=== PATIENT | female | born 1940 | race Caucasian/White ===

== ENCOUNTER 2021-12-18 09:35 | Outpatient (CLI) | payer MEDICARE, SELFPAY ==
--- NOTE | 2021-12-18 10:15 | USCV_ITS ---
Nydia Goldstein Age: 81 Gender: F : 1940 Exam Date: 12/18/2021 10:48 Ordering Phys: Mike Day XX Technologist: Judy Nieves Exam Location: [facility] [place] Indication: Syncope BP: 100 / 66 HR: 55 Rhythm: Sinus Technical Quality: Good MEASUREMENTS (Male / Female) Normal Values 2D ECHO LV Diastolic Diameter PLAX 4.5 cm 4.2 - 5.9 / 3.9 - 5.3 cm LV Systolic Diameter PLAX 2.9 cm IVS Diastolic Thickness 0.8 cm 0.6 - 1.0 / 0.6 - 0.9 cm IVS Systolic Thickness 1.2 cm LVPW Diastolic Thickness 1.1 cm 0.6 - 1.0 / 0.6 - 0.9 cm LVPW Systolic Thickness 1.7 cm LVOT Diameter 2.0 cm LV Ejection Fraction 2D Teich 64.3 % LV Ejection Fraction MOD 2C 67.3 % LV Ejection Fraction 2C AL 66.7 % LA Diameter 2.2 cm LA Width 3.1 cm LA Height 4.4 cm RA Width 3.7 cm RA Height 5.0 cm Aorta at Sinotubular Diameter 3.1 cm M-MODE MV E Point Septal Separation 0.9 cm DOPPLER AV Peak Velocity 134.0 cm/s LVOT Peak Velocity 148.0 cm/s AV Area Cont Eq vti 3.7 cm squared AV Area Cont Eq pk 3.6 cm squared MV Peak Velocity 76.0 cm/s MV Area PHT 4.2 cm squared Mitral E to A Ratio 0.6 MV E' Velocity 37.5 cm/s Mitral E to MV E' Ratio 10.9 Mitral E to LV E' Lateral Ratio 8.5 Mitral E to LV E' Septal Ratio 15.3 TR Peak Velocity 277.5 cm/s TR Peak Gradient 30.8 mmHg Right Atrial Pressure 3.0 mmHg Pulmonary Artery Systolic Pressu 33.8 mmHg PV Peak Velocity 87.0 cm/s RV Acceleration Time 0.1 s RV Ejection Time 0.3 s RV AcT/ET 0.3 FINDINGS Left Ventricle Normal left ventricular size, systolic function and wall thickness, with no regional wall motion abnormalities. Left ventricular ejection fraction is estimated at 65 %. Grade II diastolic dysfunction, moderately elevated filling pressures. Right Ventricle Normal right ventricular size and systolic function. Right ventricular systolic pressure 37 mmHg. Right Atrium Mildly increased right atrial size. Left Atrium Normal left atrial size. Mitral Valve Moderate mitral annular calcification. Mildly thickened mitral valve. No mitral valve stenosis. Trace mitral valve regurgitation. Aortic Valve Structurally normal trileaflet aortic valve. No aortic valve stenosis. Mild aortic valve regurgitation. Tricuspid Valve Structurally normal tricuspid valve. Moderate tricuspid valve regurgitation. Pulmonic Valve Structurally normal pulmonic valve. No pulmonary valve stenosis. No pulmonary valve regurgitation. Pericardium No pericardial effusion. Aorta Normal size aortic root and proximal ascending aorta. IVC Normal IVC dimension with >50% respiratory change of the inferior vena cava. CONCLUSIONS 1. Normal left ventricular size, systolic function and wall thickness, with no regional wall motion abnormalities. Left ventricular ejection fraction is estimated at 65 %. Grade II diastolic dysfunction, moderately elevated filling pressures. 2. Normal right ventricular size and systolic function. 3. Moderate tricuspid valve regurgitation. 4. Mild aortic valve regurgitation. 5. No prior similar studies to compare. Sarahi Macias MD (Electronically Signed) Final Date: 22 December 2021 08:05 S
== END 2021-12-18 09:36 | disposition home or self-care (01) ==
PROVIDERS: PCP Family Medicine; Visit Provider Family Medicine
DX: R55 Syncope and collapse (principal); I08.2 Rheumatic disorders of both aortic and tricuspid valves
CPT/HCPCS: 93306

== ENCOUNTER 2022-03-19 13:41 | Observation (INO) | payer MEDICARE, SELFPAY ==
[2022-03-19] VITALS (46 sets, daily range): BP systolic 102–152; BP diastolic 50–78; PULSE 57–70; RESP 12–23; TEMP 36.8; O2SAT 84–96; BMI 17.2
--- NOTE | 2022-03-19 14:19 | XR_ITS ---
WS: [id number] Left hip, 2 views, 03/19/2022 Clinical Data: pain/fall Comparison: AP pelvis, 05/06/2017. Findings: The internal fixation of the left intertrochanteric hip fracture remains stable. No new fractures are seen. The adjacent left pelvis does not demonstrate a fracture. The left SI joint is partly seen and is normal. The soft tissues are unremarkable. XR/XR hip LT 1V wo/w pel [id number] Impression: 1. Stable internal fixation of left intertrochanteric hip fracture. 2. Negative for new left hip fracture. Tonnis classification:
--- NOTE | 2022-03-19 14:27 | ED_ITS ---
HPI - Fall General: Chief Complaint: Fall Stated Complaint: FALL/ HIP PAIN Time Seen by Provider: 03/19/22 14:19 History of Present Illness: 81-year-old female presents emergency room c omplaining left hip pain. Patient was brought in by EMS after a fall at home. She had a stroke last year and since then has had dizziness had multiple episodes in the past today she was emptying her cat litter box she had gone outside to toss it out and got dizzy felt unsteady on her feet reached out to try to steady her self missed the railing and fell down on her left hip. Patient tells me she previously had surgery on the left hip we do not have any old x-rays. [facility] ED PFSH: Medical History (Updated 04/03/22 @ 06:03 by Asim Nayak DO) CVA (cerebral vascular accident) Fracture of left hip requiring operative repair HTN (hypertension) Tibia fracture Surgical History H/O right wrist surgery H/O: hysterectomy Family History Other Diabetes Hypertension Social History Smoking and tobacco status: current every day smoker Course Vital Signs: Vital signs: Vital Signs Temperature 97.9 F 03/26/22 12:39 Pulse Rate 68 03/26/22 12:39 Respiratory Rate 16 03/26/22 12:39 Blood Pressure 124/65 03/26/22 12:39 Pulse Oximetry 93 03/26/22 12:39 Oxygen Delivery Me thod 03/26/22 12:00 Oxygen Flow Rate 2 03/24/22 10:52 MDM - Fall Medical Decision Making Patient unable to stand. She otherwise lives alone and is unable to manage on her own we will place on observation anticipation of placement to group home care. Labs imaging and EKG reviewed as found on the chart. No acute EKG changes multiple pelvic fractures no new acute hip fracture. Medical Records I reviewed the patient's medical records. Lab Data I reviewed the patient's lab results. 03/23/22 04:24 03/23/22 04:24 Radiology Impressions Hip X-Ray 03/19/22 14:19 Impression: 1. Stable internal fixation of left intertrochanteric hip fracture. 2. Negative for new left hip fracture. Tonnis classification: Pelvis X-Ray 03/19/22 15:50 IMPRESSION: Acute left obturator ring fractures through the inferior and superior pubic rami. Femur CT 03/19/22 17:21 IMPRESSION: Redemonstrated left obturator ring fractures of the superior and inferior pubic rami. Left femur is intact. Head CT 03/26/22 05:59 IMPRESSION: 1. No evidence of intracranial hemorrhage or mass effect. 2. Moderate small vessel changes with moderate parenchymal volume loss. 3. 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 4. Vascular calcification. 5. No acute intracranial findings. Laboratory Results WBC 11.0 10^3/uL (4.0-10.0) H 03/19/22 15:38 RBC 3.86 10^6/uL (4.1-5.3) L 03/19/22 15:38 Hgb 13.0 g/dL (11.5-15.3) 03/19/22 15:38 Hct 40.4 % (37.0-47.0) 03/19/22 15:38 MCV 104.7 fl (81-99) H 03/19/22 15:38 MCH 33.7 pg (28.0-34.0) 03/19/22 15:38 MCHC 32.2 g/dL (30.0-36.0) 03/19/22 15:38 RDW 13.3 % (12.1-15.1) 03/19/22 15:38 Plt Count 223 10^3/cmm (130-400) 03/19/22 15:38 MPV 10.2 fL (7.4-10.4) 03/19/22 15:38 Neut % (Auto) 81.2 % 03/19/22 15:38 Lymph % (Auto) 12.2 % 03/19/22 15:38 Swain % (Auto) 4.9 % 03/19/22 15:38 Eos % (Auto) 0.5 % 03/19/22 15:38 Baso % (Auto) 0.5 % 03/19/22 15:38 Neut # (Auto) 8.93 10^3/uL (1.8-7.7) H 03/19/22 15:38 Lymph # (Auto) 1.3 10^3/uL (0.8-4.8) 03/19/22 15:38 Swain # (Auto) 0.5 10^3/uL (0.2-0.9) 03/19/22 15:38 Eos # (Auto) 0.1 10^3/uL (0.0-0.8) 03/19/22 15:38 Baso # (Auto) 0.1 10^3/uL (0.0-0.1) 03/19/22 15:38 Nucleated RBC % (auto) 0 % 03/19/22 15:38 Nucleated RBCs # 0.0 /100WBC 03/19/22 15:38 Sodium 138 mmol/L (136-145) 03/19/22 15:38 Potassium 4.2 mmol/L (3.5-5.1) 03/19/22 15:38 Chloride 102 mmol/L (98-107) 03/19/22 15:38 Carbon Dioxide 23 mmol/L (22-29) 03/19/22 15:38 Anion Gap 17.2 (5-19) 03/19/22 15:38 BUN 22 mg/dL (8-23) 03/19/22 15:38 Creatinine 0.7 mg/dL (0.5-0.9) 03/19/22 15:38 GFR Calculation Not Reportable 03/19/22 15:38 Glucose 80 mg/dL (65-115) 03/19/22 15:38 Calculated Osmolality 288 mOsm/kg (285-295) 03/19/22 15:38 Calcium 9.6 mg/dL (8.5-10.5) 03/19/22 15:38 Total Bilirubin 1.1 mg/dL (0.15-1.2) 03/19/22 15:38 AST 31 U/L (0-32) 03/19/22 15:38 ALT 33 U/L (0-33) 03/19/22 15:38 Alkaline Phosphatase 75 U/L (35-105) 03/19/22 15:38 Total Protein 6.5 g/dL (6.6-8.7) L 03/19/22 15:38 Albumin 4.1 g/dL (3.5-5.2) 03/19/22 15:38 Globulin 2.4 g/dL (1.3-4.6) 03/19/22 15:38 Discharge Plan Discharge Patient Disposition: Admitted As Inpatient Admit Provider: Nic Cortes Clinical Impression: Multiple pelvic fractures, History of CVA (cerebrovascular accident) Condition: Stable Discharge Diet: Cardiac Discharge Activity: Resume usual activity Coding Level of Care Code ED Obstetrician/Gynecologist for Fracisco Cortez
[2022-03-19 15:47] LABS: Basophils # 0.1 10^3/uL (0.0-0.1); Basophils % 0.5 %; Eosinophils # 0.1 10^3/uL (0.0-0.8); Eosinophils % 0.5 %; Hematocrit 40.4 % (37.0-47.0); Lymphocytes # 1.3 10^3/uL (0.8-4.8); Lymphocytes % 12.2 %; Mean Corpuscular HGB Conc 32.2 g/dL (30.0-36.0); Mean Corpuscular Hemoglobin 33.7 pg (28.0-34.0); Mean Corpuscular Volume 104.7 fl (81-99); Mean Platelet Volume 10.2 fL (7.4-10.4); Monocytes # 0.5 10^3/uL (0.2-0.9); Monocytes % 4.9 %; Neutrophils # 8.93 10^3/uL (1.8-7.7); Neutrophils % 81.2 %; Nucleated Red Blood Cells % 0 %; Platelet Count 223 10^3/cmm (130-400); Red Blood Count 3.86 10^6/uL (4.1-5.3); Red Cell Distribution Width 13.3 % (12.1-15.1)
--- NOTE | 2022-03-19 15:50 | XRR_ITS ---
PROCEDURE INFORMATION: Exam: XR Pelvis Exam date and time: 03/19/2022 4:06 PM Age: 81 years old Clinical indication: Pain and injury or trauma; Fall; Blunt trauma (contusions or hematomas); Bilateral; Hip and pelvic region; Pelvic pain; Prior surgery; Surgery type: Left hip; Additional info: Pain after fall TECHNIQUE: Imaging protocol: Radiologic exam of the pelvis. Views: 1 or 2 view. COMPARISON: CR XR hip LT 1V wo/w pel [id number] 03/19/2022 2:30 PM FINDINGS: Bones/joints: Acute left obturator ring fractures through the inferior and superior pubic rami noted. Intact left hip fixation device noted. Old/well corticated fracture through the lesser trochanter of the left hip noted. Soft tissues: Unremarkable. XR/XR pelvis 1-2V* [id number] IMPRESSION: Acute left obturator ring fractures through the inferior and superior pubic rami.
[2022-03-19 16:17] LABS: Alanine Aminotransferase 33 U/L (0-33); Albumin Level 4.1 g/dL (3.5-5.2); Alkaline Phosphatase 75 U/L (35-105); Anion Gap 17.2 (5-19); Aspartate Amino Transferase 31 U/L (0-32); Blood Urea Nitrogen 22 mg/dL (8-23); Calcium 9.6 mg/dL (8.5-10.5); Carbon Dioxide 23 mmol/L (22-29); Chloride 102 mmol/L (98-107); Globulin 2.4 g/dL (1.3-4.6); Glucose 80 mg/dL (65-115); Osmolality Calculated 288 mOsm/kg (285-295); Potassium 4.2 mmol/L (3.5-5.1); Sodium 138 mmol/L (136-145); Total Bilirubin 1.1 mg/dL (0.15-1.2); Total Protein 6.5 g/dL (6.6-8.7)
--- NOTE | 2022-03-19 17:21 | CTR_ITS ---
PROCEDURE INFORMATION: Exam: CT Left Lower Extremity Without Contrast; Thigh Exam date and time: 03/19/2022 5:58 PM Age: 81 years old Clinical indication: Injury or trauma; Fall; Blunt trauma; Thigh or upper leg; Left; Injury date: Today; Injury details: Field of view opened up to include left ischium where fracture was noted. Prior surgery; Additional info: Pain TECHNIQUE: Imaging protocol: CT of the Left lower extremity without contrast was performed. Exam focused on the thigh. Radiation optimization: All CT scans at this facility use at least one of these dose optimization techniques: automated exposure control; mA and/or kV adjustment per patient size (includes targeted exams where dose is matched to clinical indication); or iterative reconstruction. COMPARISON: CR XR pelvis 1-2V* [id number] 03/19/2022 4:06 PM RADIATION DOSE METRICS: Total DLP (mGy-cm): 497.73 FINDINGS: Bones/joints: Redemonstrated left obturator ring fractures of the superior and inferior left pubic rami. Intact left fixation device in the left femur. Old fracture through the lesser trochanter of the femur. No acute fracture of the femur. Soft tissues: Normal. CT/CT femur LT wo con* [id number] IMPRESSION: Redemonstrated left obturator ring fractures of the superior and inferior pubic rami. Left femur is intact.
[2022-03-19] MEDS: morphine 4 mg/mL SDV 1 mL 2 MG IVP (17:35)
[2022-03-19] MEDS: ondansetron 2 mg/ML SDV 2 mL 4 MG IVP (17:35)
--- NOTE | 2022-03-19 19:36 | PM.HP ---
Providers/Chief Complaint Admitting Physician: Nic Cortes Primary Care Provider: Mike Day Chief Complaint: FALL/ HIP PAIN History of Present Illness Pleasant 81-year-old lady with history of mild CVA with intermittent vertigo ever since CVA had been down to pick something up from the ground, got dizzy and did not manage to grab onto the door handle to steady herself and fell down onto the tile/stone floor just missing the carpet. She was in quite a bit of pain in her left pelvis/hip upon the fall. Had difficult time getting up, had to crawl on her needs to call for help. He otherwise denies any other new symptoms. She denies losing consciousness. Has not had any headache. Denies chest pain or pressure. Has not been feeling more short of breath than usual. In ER she is found to have acute left obturator ring fractures through the inferior and superior pubic rami. She is unable to bear any weight. Review of Systems Const: Denies: fever(s), chills, body aches or malaise Eyes: Denies: change in vision, eye discomfort or eye redness ENMT: Denies: throat pain, oral sores or ear or mastoid pain Card: Denies: chest pain, edema, pre-syncope or dyspnea on exertion Resp: Denies: dyspnea, productive cough, change in phlegm color or hemoptysis GI: Denies: abdominal pain, nausea, vomiting, diarrhea, constipation, hematochezia or melena : Denies: flank pain, urinary frequency or hematuria Musc: Reports: extremity pain (L hip/leg); Denies: back pain, joint swelling or joint redness Skin/Breast: Denies: rash or new lesions Neuro: Reports: dizziness; Denies: headache(s), numbness in extremities, weakness in extremities, confusion or seizure-like activity Endo: Denies: polyuria or polydipsia Jewel/Lymph: Denies: easy bleeding or tender lymph nodes All/Imm: Denies: urticaria or tongue swelling Medications/Allergies Home Medications Medication Instructions Recorded Confirmed Last Taken Type alendronate 70 mg tablet 70 mg PO Q7D 03/19/22 03/19/22 03/17/22 History amlodipine 10 mg tablet 10 mg PO DAILY 03/19/22 03/19/22 03/19/22 History aspirin 81 mg chewable tablet 81 mg PO BID 03/19/22 03/19/22 03/19/22 History atenolol 50 mg-chlorthalidone 25 1 tab PO DAILY 03/19/22 03/19/22 03/19/22 History mg tablet atorvastatin 20 mg tablet 20 mg PO BEDTIME 03/19/22 03/19/22 03/18/22 History fluticasone propionate 50 2 spray intranasal DAILY PRN Nasal 03/19/22 03/19/22 Unknown History mcg/actuation nasal Congestion spray,suspension lisinopril 40 mg tablet 40 mg PO DAILY 03/19/22 03/19/22 03/19/22 History potassium chloride 20 mEq 20 meq PO DAILY 03/19/22 03/19/22 03/19/22 History tablet,extended release(part/cryst) Allergies Allergy/AdvReac Type Severity Reaction Status Date / Time No Known Allergies Allergy Unverified 03/19/22 14:55 PFSH Acute PFSH: Medical History CVA (cerebral vascular accident) Fracture of left hip requiring operative repair HTN (hypertension) Tibia fracture Surgical History H/O right wrist surgery H/O: hysterectomy Family History Other Diabetes Hypertension Social History Smoking and tobacco status: current every day smoker Vitals/I&O/Wt Last Vital Signs Pulse 62 03/19/22 18:41 Resp 19 H 03/19/22 18:45 BP 118/53 03/19/22 18:45 Pulse Ox 89 L 03/19/22 18:45 Weight last 48 hrs Weight 42.638 kg Physical Exam Const: COMMON NORMALS: patient oriented x3 and alert GENERAL APPEARANCE: cooperative and frail appearing ORIENTATION/CONSCIOUSNESS: Yes awake HENMT: COMMON NORMALS: oropharynx normal Neck/C-Spine: COMMON NORMALS: no JVD Resp: COMMON NORMALS: normal respiratory effort and clear to auscultation bilaterally AUSCULTATION: clear to auscultation bilaterally Cardio: COMMON NORMALS: no JVD, regular rhythm, S1 normal heart sound present, S2 normal heart sound present and No murmurs present (Cardio) RHYTHM: regular rhythm HEART SOUNDS: S1 normal heart sound present and S2 normal heart sound present GI: COMMON NORMALS: Normal to inspection, nondistended, normoactive bowel sounds present, Soft to palpation and non-tender PALPATION: Yes Soft to palpation Extremity: COMMON NORMALS: no joint enlargement and no pedal edema OTHER: Pain L hip w movement Neuro: COMMON NORMALS: patient oriented x3 and moves all extremities SENSORIUM/ORIENTATION: Yes alert Skin: COMMON NORMALS: no rashes or lesions noted GENERAL SKIN EXAM: no rashes or lesions noted Data 03/19/22 15:38 03/19/22 15:38 A&P Assessment and plan (1) Multiple pelvic fractures: Stable pelvic fracture. Fractures of superior and inferior pubic rami. Follow-up hemoglobin discussed with her risk of acute blood loss anemia. Pain control. Cautious mobilization. She lives alone. Case management consultation. Plan HTN Attestations Medical Necessity Statement*: Place in observation for reassessment of blood count with multiple pelvic fractures and risk of acute anemia, pain control, cautious mobilization and disposition planning. Coding Level of Care Code Acute Code for [facility] Fwd Diagnoses Multiple pelvic fractures S32.82XA
[2022-03-19] MEDS: sodium chloride 0.9% 1,000 ML 100 ML IV (21:27)
[2022-03-20] VITALS: BP 99/52; PULSE 62; RESP 16; TEMP 37; O2SAT 95
--- NOTE | 2022-03-20 00:28 | PC.NURSE ---
Patient arrived to the 2nd floor on room air. Once patient was settled in the med/surg bed, aid took pts arrival vitals to see pts O2 was 83% on room air. Patient stated she was wearing oxygen in the ER. Patient was put on 3L nasal cannula with 92% oxygen.
[2022-03-20 01:37] LABS: Basophils % 0.4 %; Eosinophils # 0.1 10^3/uL (0.0-0.8); Eosinophils % 1.3 %; Hematocrit 32.8 % (37.0-47.0); Hemoglobin 10.6 g/dL (11.5-15.3); Lymphocytes # 1.7 10^3/uL (0.8-4.8); Lymphocytes % 24.2 %; Mean Corpuscular HGB Conc 32.3 g/dL (30.0-36.0); Mean Corpuscular Hemoglobin 33.8 pg (28.0-34.0); Mean Corpuscular Volume 104.5 fl (81-99); Mean Platelet Volume 10.8 fL (7.4-10.4); Monocytes # 0.5 10^3/uL (0.2-0.9); Monocytes % 7.8 %; Neutrophils # 4.48 10^3/uL (1.8-7.7); Neutrophils % 65.9 %; Nucleated Red Blood Cells % 0 %; Platelet Count 173 10^3/cmm (130-400); Red Blood Count 3.14 10^6/uL (4.1-5.3); Red Cell Distribution Width 13.2 % (12.1-15.1); White Blood Count 6.8 10^3/uL (4.0-10.0)
[2022-03-20 01:55] LABS: Anion Gap 14.8 (5-19); Blood Urea Nitrogen 20 mg/dL (8-23); Calcium 8.7 mg/dL (8.5-10.5); Carbon Dioxide 22 mmol/L (22-29); Chloride 104 mmol/L (98-107); Creatine Phosphokinase 130 U/L (26-192); Glucose 86 mg/dL (65-115); Osmolality Calculated 286 mOsm/kg (285-295); Potassium 3.8 mmol/L (3.5-5.1); Sodium 137 mmol/L (136-145)
[2022-03-20 03:49] LABS: Add Urine Microscopic? YES; Bilirubin Urine Neg (Negative); Blood Urine 2+ (Negative); Glucose Urine UA Norm (Normal); Ketones Urine 1+ (Negative); Leukocyte Esterase Urine 1+ (Negative); Nitrate Urine Positive (Negative); Protein Urine Neg (Negative); Urine Appearance SL Hazy (CLEAR); Urine Color Yellow (Yellow); Urobilinogen Urine Norm (Negative); pH Urine 7 (5-7)
[2022-03-20 03:59] LABS: Add Urine Culture? Yes; Bacteria Urine 1+ /hpf; Squamous Epithelial Cell Urine 0-4 /hpf (0-5); WBC Urine 25-40 /hpf (0-5)
[2022-03-20 04:00] VITALS: BP 108/51; PULSE 60; RESP 16; TEMP 36.9; O2SAT 95
[2022-03-20 07:56] VITALS: BP 95/51; PULSE 58; RESP 16; TEMP 36.7; O2SAT 94
[2022-03-20] MEDS: aspirin 81 mg Chew Tablet PO ×2 (08:17→18:31)
[2022-03-20] MEDS: sodium chloride 0.9% 1,000 ML 100 ML IV (08:18)
[2022-03-20] MEDS: cefTRIAXone 1,000 MG in sodium chloride 0.9% (plus) 50 ML 100 MG IV (10:54)
--- NOTE | 2022-03-20 11:51 | PC.CHAP ---
Pastoral Care Encounter/Spiritual Assessment Type of Contact [] Declined idea worker visit [] Patient/Family/Request visit [] Outpatient visit [] Follow-up visit [] Physician referral [] Code/Alert x[x]x Routine visit [] Staff referral [] Actively dying [] Patient sleeping [] Family support [] [] Out of room [] Palliative care [] [] Receiving care in room [] Pre-surgical visit [] Trauma [] Long length of stay [] ICU visit [] Other: Relational/Emotional Strength [x] Patient feels connected with others/family/visitors/staff [] Distress [] Loneliness/isolation [] Abandonment Spirituality of Patient []x Person of Inez [] Attends Faith of their Inez [x] Believes in Prayer [] Reads Bible or Roman Catholic materials [] There are Spiritual issues to be addressed Aircraft Restorer Interventions [x] Prayer [x] Active listening [x] Non-anxious presence [x] Spiritual/emotional support [] Crisis/trauma care [] Spiritual counseling [] Bereavement support [] Provided bereavement packet [] Provided Bible/devotional materials [] Provided toy/stuffed animal, coloring book to patient or family member [] Provided Communion [] Anointing/Sharon [] Salvation [x] Completed spiritual assessment [] Other: Impact on Illness or Injury [] Angry [] Fearful [] Anxious [] Often cries [] Exhaustion [] Unable to work [] Unable to attend scientology [] Unable to walk/stand [] Unable to read [] Unable to drive [] Unable to eat/drink [] Unable to sleep [] Unable to be with family [] Patient intubated [] Other: Summary Time spent with patient 10 min
[2022-03-20 12:00] VITALS: BP 108/60; PULSE 57; RESP 15; TEMP 36.7; O2SAT 96
[2022-03-20 16:00] VITALS: BP 101/44; PULSE 58; RESP 17; TEMP 36.6; O2SAT 97
[2022-03-20 19:38] VITALS: BP 103/45; PULSE 54; RESP 15; TEMP 37.1; O2SAT 95
--- NOTE | 2022-03-20 21:02 | PM.PN ---
Subjective Subjective: Swelling pain in her left side pelvis. Did try her best to get up with physical therapy today. Discussed with her regarding anemia. Currently no dizziness or lightheadedness. Vitals/I&O/Wt Last Vital Signs Temp 98.8 F 03/20/22 19:38 Pulse 54 L 03/20/22 19:38 Resp 15 03/20/22 19:38 BP 103/45 03/20/22 19:38 Pulse Ox 95 03/20/22 19:38 O2 Del Method 03/20/22 19:38 O2 Flow Rate 1 03/20/22 19:38 03/20/22 03/20/22 03/20/22 06:59 14:59 22:59 Intake Total 1869 170 2039 Output Total 200 / 200 Balance -200 / -200 1869 Weight last 48 hrs Weight 42.638 kg Physical Exam Narrative: Accompanied by her friend. Const: COMMON NORMALS: patient oriented x3 and alert GENERAL APPEARANCE: cooperative and frail appearing ORIENTATION/CONSCIOUSNESS: Yes awake HENMT: COMMON NORMALS: oropharynx normal Neck/C-Spine: COMMON NORMALS: no JVD Resp: COMMON NORMALS: normal respiratory effort and clear to auscultation bilaterally AUSCULTATION: clear to auscultation bilaterally Cardio: COMMON NORMALS: no JVD, regular rhythm, S1 normal heart sound present, S2 normal heart sound present and No murmurs present (Cardio) RHYTHM: regular rhythm HEART SOUNDS: S1 normal heart sound present and S2 normal heart sound present GI: COMMON NORMALS: Normal to inspection, nondistended, normoactive bowel sounds present, Soft to palpation and non-tender PALPATION: Yes Soft to palpation Extremity: COMMON NORMALS: no joint enlargement and no pedal edema OTHER: Pain L hip w movement Neuro: COMMON NORMALS: patient oriented x3 and moves all extremities SENSORIUM/ORIENTATION: Yes alert Skin: COMMON NORMALS: no rashes or lesions noted GENERAL SKIN EXAM: no rashes or lesions noted Data 03/20/22 01:08 03/20/22 01:08 A&P Assessment and plan (1) Multiple pelvic fractures: Pain is slightly better today. Continue stable pelvic fracture. Fractures of superior and inferior pubic rami. Follow-up hemoglobin discussed with her risk of acute blood loss anemia. Pain control. Cautious mobilization with physical therapy. Case management consultation for disposition planning. Stop IV fluid. Does appear to have UTI. Started on Rocephin. (2) Acute anemia: Aspirin therapy: Her friend tells me at home patient takes aspirin 500 mg twice daily. Patient is not sure why she is taking like this. States her doctor told her to take it that way. Thought it was due to stroke. Denies any epigastric pain or discomfort or dyspepsia. Add PPI. Collect Hemoccult. Reassess blood counts tonight and in the morning. Decrease aspirin dose to 81 mg daily. Plan UTI: Started Rocephin. Follow-up urine culture. HTN Attestations Medical Necessity Statement*: Continue reassessment in the hospital after pelvic fracture with acute anemia, reassessment of blood count due to risk of bleeding, treatment of UTI, mobilization of pelvic fractures, disposition planning and arrangements. Coding Level of Care Code Acute Code for [facility] Fwd Diagnoses Multiple pelvic fractures S32.82XA Acute anemia D64.9
[2022-03-20 21:40] LABS: Hemoglobin 10.6 g/dL (11.5-15.3)
[2022-03-21] VITALS (8 sets, daily range): BP systolic 94–133; BP diastolic 54–68; PULSE 60–72; RESP 15–18; TEMP 36.7–37.4; O2SAT 91–98
[2022-03-21 05:58] LABS: Basophils % 0.4 %; Eosinophils # 0.2 10^3/uL (0.0-0.8); Eosinophils % 2.1 %; Hematocrit 33.1 % (37.0-47.0); Hemoglobin 10.6 g/dL (11.5-15.3); Lymphocytes # 1.3 10^3/uL (0.8-4.8); Lymphocytes % 17.8 %; Mean Corpuscular Hemoglobin 33.5 pg (28.0-34.0); Mean Corpuscular Volume 104.7 fl (81-99); Mean Platelet Volume 10.1 fL (7.4-10.4); Monocytes # 0.6 10^3/uL (0.2-0.9); Monocytes % 7.8 %; Neutrophils # 5.24 10^3/uL (1.8-7.7); Neutrophils % 71.6 %; Nucleated Red Blood Cells % 0 %; Platelet Count 162 10^3/cmm (130-400); Red Blood Count 3.16 10^6/uL (4.1-5.3); Red Cell Distribution Width 12.9 % (12.1-15.1); White Blood Count 7.3 10^3/uL (4.0-10.0)
[2022-03-21 06:26] LABS: Blood Urea Nitrogen 24 mg/dL (8-23); Calcium 8.7 mg/dL (8.5-10.5); Carbon Dioxide 23 mmol/L (22-29); Chloride 104 mmol/L (98-107); Glucose 95 mg/dL (65-115); Osmolality Calculated 288 mOsm/kg (285-295); Sodium 137 mmol/L (136-145)
[2022-03-21] MEDS: cefTRIAXone 1,000 MG in sodium chloride 0.9% (plus) 50 ML 100 MG IV (08:28)
[2022-03-21] MEDS: aspirin 81 mg Chew Tablet PO (08:29)
[2022-03-21] MEDS: pantoprazole DR 40 mg Tablet PO ×2 (08:29→18:12)
--- NOTE | 2022-03-21 20:14 | PM.PN ---
Subjective Subjective: She states she is doing quite a bit of pain even more pain today in the left side of her pelvis. States that very difficult time try to get up to the restroom. Pain medication helps the pain slightly and for short time. Vitals/I&O/Wt Last Vital Signs Temp 98.6 F 03/21/22 16:00 Pulse 63 03/21/22 16:00 Resp 16 03/21/22 16:00 BP 104/60 03/21/22 16:00 Pulse Ox 97 03/21/22 16:00 O2 Del Method 03/21/22 16:00 O2 Flow Rate 0.5 03/21/22 04:00 03/21/22 03/21/22 03/21/22 06:59 14:59 22:59 Intake Total 240 / 2520 50 / 50 240 / 290 Balance 240 / 2520 50 / 50 240 / 290 Physical Exam Const: COMMON NORMALS: patient oriented x3 and alert GENERAL APPEARANCE: cooperative and frail appearing ORIENTATION/CONSCIOUSNESS: Yes awake HENMT: COMMON NORMALS: oropharynx normal Neck/C-Spine: COMMON NORMALS: no JVD Resp: COMMON NORMALS: normal respiratory effort and clear to auscultation bilaterally AUSCULTATION: clear to auscultation bilaterally Cardio: COMMON NORMALS: no JVD, regular rhythm, S1 normal heart sound present, S2 normal heart sound present and No murmurs present (Cardio) RHYTHM: regular rhythm HEART SOUNDS: S1 normal heart sound present and S2 normal heart sound present GI: COMMON NORMALS: Normal to inspection, nondistended, normoactive bowel sounds present, Soft to palpation and non-tender PALPATION: Yes Soft to palpation Extremity: COMMON NORMALS: no joint enlargement and no pedal edema OTHER: No left thigh swelling. She has difficulty lifting her left leg due to pain in left side pelvis. Neuro: COMMON NORMALS: patient oriented x3 and moves all extremities SENSORIUM/ORIENTATION: Yes alert Skin: COMMON NORMALS: no rashes or lesions noted GENERAL SKIN EXAM: no rashes or lesions noted Data 03/21/22 05:48 03/21/22 05:48 Micro: Microbiology 03/20/22 03:20 Urine Culture - Preliminary Urine,Clean Catch Gram Negative Rods A&P Assessment and plan (1) Multiple pelvic fractures: Pain is slightly better today. Continue stable pelvic fracture. Fractures of superior and inferior pubic rami. Follow-up hemoglobin discussed with her risk of acute blood loss anemia. Pain control. Cautious mobilization with physical therapy. Case management consultation for disposition planning. Stop IV fluid. Does appear to have UTI. Started on Rocephin. (2) Acute anemia: Hemoglobin today unchanged at 10.6. Recheck. Aspirin therapy: Her friend tells me at home patient takes aspirin 500 mg twice daily. Patient is not sure why she is taking like this. States her doctor told her to take it that way. Thought it was due to stroke. Denies any epigastric pain or discomfort or dyspepsia. Add PPI. Collect Hemoccult. Reassess blood counts tonight and in the morning. Decrease aspirin dose to 81 mg daily. Plan UTI: Rocephin. Follow-up urine culture. Gram-negative rods so far. HTN Attestations Medical Necessity Statement*: Continue hospitalization for reassessment following multiple pelvic fractures, uncontrolled pain due to fractures limiting mobility, optimization of pain control, reassessment of acute anemia. Coding Level of Care Code Acute Code for [facility] Diagnoses Multiple pelvic fractures S32.82XA Acute anemia D64.9
[2022-03-22] VITALS (8 sets, daily range): BP systolic 97–138; BP diastolic 53–67; PULSE 62–76; RESP 15–20; TEMP 36.6–36.9; O2SAT 90–98
[2022-03-22 01:50] LABS: Basophils % 0.5 %; Eosinophils # 0.2 10^3/uL (0.0-0.8); Eosinophils % 2.9 %; Hematocrit 32.7 % (37.0-47.0); Hemoglobin 10.7 g/dL (11.5-15.3); Lymphocytes # 1.4 10^3/uL (0.8-4.8); Lymphocytes % 21.5 %; Mean Corpuscular HGB Conc 32.7 g/dL (30.0-36.0); Mean Corpuscular Hemoglobin 34.5 pg (28.0-34.0); Mean Corpuscular Volume 105.5 fl (81-99); Mean Platelet Volume 10.4 fL (7.4-10.4); Monocytes # 0.6 10^3/uL (0.2-0.9); Monocytes % 8.8 %; Neutrophils # 4.27 10^3/uL (1.8-7.7); Neutrophils % 66.1 %; Nucleated Red Blood Cells % 0 %; Platelet Count 165 10^3/cmm (130-400); Red Cell Distribution Width 12.9 % (12.1-15.1); White Blood Count 6.5 10^3/uL (4.0-10.0)
[2022-03-22 02:09] LABS: Anion Gap 12.8 (5-19); Blood Urea Nitrogen 25 mg/dL (8-23); Carbon Dioxide 25 mmol/L (22-29); Chloride 103 mmol/L (98-107); Glucose 76 mg/dL (65-115); Osmolality Calculated 287 mOsm/kg (285-295); Potassium 3.8 mmol/L (3.5-5.1); Sodium 137 mmol/L (136-145)
[2022-03-22] MEDS: acetaminophen 325 mg Tablet 650 MG PO (02:09)
[2022-03-22] MEDS: cefTRIAXone 1,000 MG in sodium chloride 0.9% (plus) 50 ML 100 MG IV (08:16)
[2022-03-22] MEDS: pantoprazole DR 40 mg Tablet PO ×2 (08:16→18:00)
[2022-03-22] MEDS: aspirin 81 mg Chew Tablet PO (08:16)
--- NOTE | 2022-03-22 21:10 | P.PN_ITS ---
Subjective Subjective: She states she is still having pain. Did not receive the increased Dilaudid dose overnight. About to receive it this morning. Has also been having dizzy spells worse than usual. Vitals/I&O/Wt Last Vital Signs Temp 98.4 F 03/22/22 16:00 Pulse 76 03/22/22 20:16 Resp 17 03/22/22 16:00 BP 138/67 03/22/22 16:00 Pulse Ox 94 03/22/22 20:16 O2 Del Method 03/22/22 20:16 O2 Flow Rate 2 03/22/22 20:16 03/22/22 03/22/22 03/22/22 06:59 14:59 22:59 Intake Total 170 / 170 Balance 170 / 170 Physical Exam Narrative: Accompanied by her son. Const: COMMON NORMALS: patient oriented x3 and alert GENERAL APPEARANCE: cooperative and frail appearing ORIENTATION/CONSCIOUSNESS: Yes awake HENMT: COMMON NORMALS: oropharynx normal Neck/C-Spine: COMMON NORMALS: no JVD Resp: COMMON NORMALS: normal respiratory effort and clear to auscultation bilaterally AUSCULTATION: clear to auscultation bilaterally Cardio: COMMON NORMALS: no JVD, regular rhythm, S1 normal heart sound present, S2 normal heart sound present and No murmurs present (Cardio) RHYTHM: regular rhythm HEART SOUNDS: S1 normal heart sound present and S2 normal heart sound present GI: COMMON NORMALS: Normal to inspection, nondistended, normoactive bowel sounds present, Soft to palpation and non-tender PALPATION: Yes Soft to palpation Extremity: COMMON NORMALS: no joint enlargement and no pedal edema OTHER: No left thigh swelling. She has difficulty lifting her left leg due to pain in left side pelvis. Neuro: COMMON NORMALS: patient oriented x3 and moves all extremities SENSORIUM/ORIENTATION: Yes alert Skin: COMMON NORMALS: no rashes or lesions noted GENERAL SKIN EXAM: no rashes or lesions noted Data 03/22/22 01:24 03/22/22 01:24 Micro: Microbiology 03/20/22 03:20 Urine Culture - Final Urine,Clean Catch Proteus mirabilis A&P Assessment and plan (1) Multiple pelvic fractures: Still in pain but has not received higher dose of Dilaudid. Receiving it today. Continue optimization of pain control. Arrangements for rehabilitation. Continue stable pelvic fracture. Fractures of superior and inferior pubic rami. Follow-up hemoglobin discussed with her risk of acute blood loss anemia. Pain control. Cautious mobilization with physical therapy. Case management consultation for disposition planning. Stop IV fluid. UTI. Rocephin. (2) Dizzy spells: Denies vertigo, but continues to have dizzy spells worse than usual. Discussed with her we will assess orthostatics, blood pressure has been soft. Discussed also may be central. Has had dizziness ever since the prior CVA, alth adriannegh reports some dizziness even before CVA. Will additionally assess duplex. Continue aspirin. Continue treatment of UTI. Blood pressure soft currently also on pain medication. Antihypertensives held. At home may in fact be hypotensive with multiple antihypertensives. Arrangements for walker. Discussed with her and her son strict precautions to avoid falls. (3) Acute anemia: Hemoglobin today unchanged at 10.6. Recheck. Aspirin therapy: Her friend tells me at home patient takes aspirin 500 mg twice daily. Patient is not sure why she is taking like this. States her doctor told her to take it that way. Thought it was due to stroke. Denies any epigastric pain or discomfort or dyspepsia. Add PPI. Collect Hemoccult. Reassess blood counts tonight and in the morning. Decrease aspirin dose to 81 mg daily. Plan UTI: Produce. Continue Rocephin. HTN: Blood pressures currently soft with antihypertensives on hold. Attestations Medical Necessity Statement*: continue hospitalization for optimization of pain control, additional assessment of dizziness, continue arrangements for rehabilitation. Coding Level of Care Code Acute Code for [facility] Fwd Diagnoses Multiple pelvic fractures S32.82XA Dizzy spells R42 Acute anemia D64.9
--- NOTE | 2022-03-22 21:11 | USCV_ITS ---
Nydia Goldstein Age: 81 Gender: F : 1940 Exam Date: 03/22/2022 23:42 Ordering Phys: Nic Cortes MD Technologist: GAVIN Exam Location: [facility] – [place] Indication: long-term smoker continues smoking. Patient denies DM. c/o chronic dizziness x 4-5 months. Risk Factors: long-term smoker continues smoking. Patient denies DM. c/o chronic dizziness x 4-5 months. Previous Vascular Surgery: None Right Brachial BP: 110 / 58 Left Brachial BP: / Right Left Velocity (cm/s) Spectral Plaque Velocity (cm/s) Spectral Plaque Syst/Diast Broadening Syst/Diast Broadening 58.30/ 6.20 None None Prox CCA 67.00 / 6.20 None None 65.30/ 12.40 None None Mid CCA 69.50 / 8.80 None None 54.40/ 13.20 Min Hu Distal CCA 50.50 / 14.00 Min Hu 81.60/ 14.80 Min Hu Prox ICA 98.70 / 23.30 Min Hu 78.70/ 24.20 Min Homo Mid ICA 98.70 / 24.10 Min Homo 98.10/ 27.60 Min Homo Distal ICA 94.80 / 23.20 Min Homo 105.60 Min Homo ECA 53.60 None Homo 1.50 ICA/CCA 1.42 Antegrade Vertebral Antegrade 57.30/ 12.10 cm/s 61.70/ 12.10 cm/s Tri Subclavian Tri 75.00 55.90 FINDINGS Comparison: none available. No significant elevation of systolic or diastolic velocities. Waveforms are normal. Minimal bilateral atherosclerosis with no elevation of velocity. Antegrade vertebral arteries. CONCLUSIONS Bilateral ICA stenosis less than 50%. Mild carotid atherosclerosis. Dr. Becca Loya DO (Electronically Signed) Final Date: 23 March 2022 07:37 S
[2022-03-23] VITALS (12 sets, daily range): BP systolic 95–124; BP diastolic 55–72; PULSE 56–77; RESP 16–23; TEMP 36.6–36.9; O2SAT 93–100
[2022-03-23 05:24] LABS: Basophils % 0.5 %; Eosinophils # 0.2 10^3/uL (0.0-0.8); Eosinophils % 3.4 %; Hematocrit 31.2 % (37.0-47.0); Hemoglobin 10.3 g/dL (11.5-15.3); Lymphocytes # 1.5 10^3/uL (0.8-4.8); Lymphocytes % 23.4 %; Mean Corpuscular Hemoglobin 34.4 pg (28.0-34.0); Mean Corpuscular Volume 104.3 fl (81-99); Mean Platelet Volume 10.9 fL (7.4-10.4); Monocytes # 0.6 10^3/uL (0.2-0.9); Monocytes % 9.1 %; Neutrophils # 4.08 10^3/uL (1.8-7.7); Neutrophils % 63.3 %; Nucleated Red Blood Cells % 0 %; Platelet Count 184 10^3/cmm (130-400); Red Blood Count 2.99 10^6/uL (4.1-5.3); Red Cell Distribution Width 12.5 % (12.1-15.1); White Blood Count 6.5 10^3/uL (4.0-10.0)
[2022-03-23 05:56] LABS: Blood Urea Nitrogen 24 mg/dL (8-23); Calcium 9.3 mg/dL (8.5-10.5); Carbon Dioxide 27 mmol/L (22-29); Chloride 101 mmol/L (98-107); Glucose 117 mg/dL (65-115); Osmolality Calculated 287 mOsm/kg (285-295); Sodium 136 mmol/L (136-145)
[2022-03-23] MEDS: cefTRIAXone 1,000 MG in sodium chloride 0.9% (plus) 50 ML 100 MG IV (08:33)
[2022-03-23] MEDS: pantoprazole DR 40 mg Tablet PO ×2 (08:33→18:29)
[2022-03-23] MEDS: aspirin 81 mg Chew Tablet PO (08:34)
[2022-03-23] MEDS: polyethylene glycol 3350 Pkt 17 gm PO ×2 (11:59→18:29)
--- NOTE | 2022-03-23 16:25 | P.PN_ITS ---
Subjective Subjective: She is still having episodes of dizziness. Denies other symptoms. Pain is now becoming better controlled, but still needed pain medication. Vitals/I&O/Wt Last Vital Signs Temp 98 F 03/23/22 08:00 Pulse 62 03/23/22 12:00 Resp 18 03/23/22 08:34 BP 115/63 03/23/22 12:00 Pulse Ox 95 03/23/22 12:00 O2 Del Method 03/23/22 09:00 O2 Flow Rate 2 03/23/22 09:00 03/23/22 03/23/22 03/23/22 06:59 14:59 22:59 Intake Total 120 / 530 300 / 300 Output Total 200 / 200 Balance -80 / 330 300 / 300 Physical Exam Narrative: Accompanied by her son. Const: COMMON NORMALS: patient oriented x3 and alert GENERAL APPEARANCE: cooperative and frail appearing ORIENTATION/CONSCIOUSNESS: Yes awake HENMT: COMMON NORMALS: oropharynx normal Neck/C-Spine: COMMON NORMALS: no JVD Resp: COMMON NORMALS: normal respiratory effort and clear to auscultation bilaterally AUSCULTATION: clear to auscultation bilaterally Cardio: COMMON NORMALS: no JVD, regular rhythm, S1 normal heart sound present, S2 normal heart sound present and No murmurs present (Cardio) RHYTHM: regular rhythm HEART SOUNDS: S1 normal heart sound present and S2 normal heart sound present GI: COMMON NORMALS: Normal to inspection, nondistended, normoactive bowel sounds present, Soft to palpation and non-tender PALPATION: Yes Soft to palpation Extremity: COMMON NORMALS: no joint enlargement and no pedal edema OTHER: No left thigh swelling. She has difficulty lifting her left leg due to pain in left side pelvis. Neuro: COMMON NORMALS: patient oriented x3 and moves all extremities SENSORIUM/ORIENTATION: Yes alert Skin: COMMON NORMALS: no rashes or lesions noted GENERAL SKIN EXAM: no rashes or lesions noted Data 03/23/22 04:24 03/23/22 04:24 Micro: Microbiology 03/20/22 03:20 Urine Culture - Final Urine,Clean Catch Proteus mirabilis A&P Assessment and plan (1) Dizzy spells: Discussed with her and her son blood pressures with some fluctuation, intermittently pretty soft. Would likely not resume any of her an tihypertensives at this time. We did check orthostatics as well, and these do appear to be okay without significant drop upon standing. We will additionally assess with cardiac monitoring here due to dizzy spells to exclude arrhythmia. Denies vertigo, but continues to have dizzy spells worse than usual. Discussed with her we will assess orthostatics, blood pressure has been soft. Discussed also may be central. Has had dizziness ever since the prior CVA, although reports some dizziness even before CVA. Carotid duplex unremarkable including anterograde flow in the vertebrals. Continue aspirin. Continue treatment of UTI. Arrangements for walker. Discussed with her and her son strict precautions to avoid falls. (2) Multiple pelvic fractures: Pain is becoming better controlled but still needing pain medication. Continue Dilaudid. Discontinue IV morphine. Continue optimization of pain control. Arrangements for rehabilitation. Fractures of superior and inferior pubic rami. Follow-up hemoglobin discussed with her risk of acute blood loss anemia. Pain control. Cautious mobilization with physical therapy. Case management consultation for disposition planning. UTI. Rocephin. (3) Acute anemia: Hemoglobin today unchanged at 10.6. Recheck. Aspirin therapy: Her friend tells me at home patient takes aspirin 500 mg twice daily. Patient is not sure why she is taking like this. States her doctor told her to take it that way. Thought it was due to stroke. Denies any epigastric pain or discomfort or dyspepsia. Add PPI. Collect Hemoccult. Reassess blood counts tonight and in the morning. Decrease aspirin dose to 81 mg daily. Plan UTI: Proteus mirabilis. Continue Rocephin. HTN: Blood pressures currently soft with antihypertensives on hold. Attestations Medical Necessity Statement*: Continue hospitalization for assessment of dizzy spells leading to a fall with multiple pelvic fractures, optimization of pain control, disposition planning and arrangements. Coding Level of Care Code Acute Code for [facility] Fwd Diagnoses Dizzy spells R42 Multiple pelvic fractures S32.82XA Acute anemia D64.9
[2022-03-24] VITALS (10 sets, daily range): BP systolic 108–155; BP diastolic 57–71; PULSE 57–68; RESP 16–19; TEMP 36.6–36.9; O2SAT 92–98
[2022-03-24] MEDS: pantoprazole DR 40 mg Tablet PO ×2 (08:51→19:30)
[2022-03-24] MEDS: aspirin 81 mg Chew Tablet PO (08:51)
[2022-03-24] MEDS: cefTRIAXone 1,000 MG in sodium chloride 0.9% (plus) 50 ML 100 MG IV (08:51)
[2022-03-24] MEDS: polyethylene glycol 3350 Pkt 17 gm PO ×2 (08:51→19:31)
--- NOTE | 2022-03-24 13:12 | USCV_ITS ---
Nydia Goldstein Age: 81 Gender: F : 1940 Exam Date: 03/24/2022 16:25 Ordering Phys: Nic Cortes MD Technologist: JEANNA [place] [facility] [place]: fluctuating bp, dizziness BP: / HR: Rhythm: Sinus Technical Quality: Adequate MEASUREMENTS (Male / Female) Normal Values 2D ECHO LVOT Diameter 1.9 cm LA Diameter 3.5 cm M-MODE Aortic Annulus Diameter 2.2 cm LA Ao Ratio MM 1.8 MV E Point Septal Separation 0.2 cm DOPPLER TR Peak Velocity 281.0 cm/s TR Peak Gradient 31.6 mmHg Right Atrial Pressure 6.0 mmHg Pulmonary Artery Systolic Pressu 37.6 mmHg FINDINGS Left Ventricle Normal left ventricular size, systolic function and wall thickness, with no regional wall motion abnormalities. Left ventricular ejection fraction is estimated at 65 %. Right Ventricle Normal right ventricular size and systolic function. Right ventricular systolic pressure 39 mmHg. Right Atrium Normal right atrial size. Left Atrium Normal left atrial size. Mitral Valve Mild mitral annular calcification. Mildly thickened mitral valve. No mitral valve stenosis. Mild mitral valve regurgitation. Aortic Valve Structurally normal trileaflet aortic valve. No aortic valve stenosis. Mild aortic valve regurgitation. Tricuspid Valve Structurally normal tricuspid valve. No tricuspid valve stenosis. Mild tricuspid valve regurgitation. Pulmonic Valve Structurally normal pulmonic valve. No pulmonary valve stenosis. Trace pulmonary valve regurgitation. Pericardium No pericardial effusion. Aorta Normal size aortic root and proximal ascending aorta. IVC Normal IVC dimension with >50% respiratory change of the inferior vena cava. CONCLUSIONS 1. Normal left ventricular size, systolic function and wall thickness, with no regional wall motion abnormalities. Left ventricular ejection fraction is estimated at 65 %. 2. Mild aortic valve regurgitation. 3. Mild mitral and tricuspid valve regurgitation. 4. When compared to study dated 12/18/21, there may not have been any significant change. Sarahi Macias MD (Electronically Signed) Final Date: 24 March 2022 21:07 S
[2022-03-24] MEDS: bisacodyl 10 mg Supp PR (16:40)
--- NOTE | 2022-03-24 20:11 | P.PN_ITS ---
Subjective Subjective: She is having quite severe constipation. Has not had a bowel movement in days. Abdomen feels distended. Still having episodes of dizziness. Gets tired with exertion working with therapy. Vitals/I&O/Wt Last Vital Signs Temp 98 F 03/24/22 15:53 Pulse 62 03/24/22 15:53 Resp 16 03/24/22 15:53 BP 123/59 03/24/22 15:53 Pulse Ox 94 03/24/22 15:53 O2 Del Method 03/24/22 10:52 O2 Flow Rate 2 03/24/22 10:52 03/24/22 03/24/22 03/24/22 06:59 14:59 22:59 Intake Total 0 / 780 550 / 550 240 / 790 Output Total 0 / 0 Balance 0 / 780 550 / 550 240 / 790 Physical Exam Const: COMMON NORMALS: patient oriented x3 and alert GENERAL APPEARANCE: cooperative and frail appearing ORIENTATION/CONSCIOUSNESS: Yes awake HENMT: COMMON NORMALS: oropharynx normal Neck/C-Spine: COMMON NORMALS: no JVD Resp: COMMON NORMALS: normal respiratory effort and clear to auscultation bilaterally AUSCULTATION: clear to auscultation bilaterally Cardio: COMMON NORMALS: no JVD, regular rhythm, S1 normal heart sound present, S2 normal heart sound present and No murmurs present (Cardio) RHYTHM: regular rhythm HEART SOUNDS: S1 normal heart sound present and S2 normal heart sound present GI: COMMON NORMALS: Normal to inspection, nondistended, normoactive bowel sounds present, Soft to palpation and non-tender INSPECTION: Yes abdominal distension PALPATION: Yes Soft to palpation Extremity: COMMON NORMALS: no joint enlargement and no pedal edema OTHER: No left thigh swelling. She has difficulty lifting her left leg due to pain in left side pelvis. Neuro: COMMON NORMALS: patient oriented x3 and moves all extremities SENSORIUM/ORIENTATION: Yes alert Skin: COMMON NORMALS: no rashes or lesions noted GENERAL SKIN EXAM: no rashes or lesions noted Data 03/23/22 04:24 03/23/22 04:24 A&P Assessment and plan (1) Dizzy spells: Episodes of dizziness with exertional fatigue. Fluctuation in blood pressures. Assess limited TTE. Discussed with her and her son blood pressures with some fluctuation, intermittently pretty soft. Would likely not resume any of her antihypertensives at this time. We did check orthostatics as well, and these do appear to be okay without significant drop upon standing. We will additionally assess with cardiac monitoring here due to dizzy spells to exclude arrhythmia. Denies vertigo, but continues to have dizzy spells worse than usual. Discussed with her we will assess orthostatics, blood pressure has been soft. Discussed also may be central. Has had dizziness ever since the prior CVA, although reports some dizziness even before CVA. Carotid duplex unremarkable including anterograde flow in the vertebrals. Continue aspirin. Continue treatment of UTI. Arrangements for walker. Discussed with her and her son strict precautions to avoid falls. Will benefit from further rehabilitation after discharge. Unable to be accepted over the weekend until Saturday. (2) Multiple pelvic fractures: Pain is becoming better controlled but still needing pain medication. Continue Dilaudid. Continue optimization of pain control. Arrangements for rehabilitation. Fractures of superior and inferior pubic rami. Follow-up hemoglobin discussed with her risk of acute blood loss anemia. Pain control. Cautious mobilization with physical therapy. Case management consultation for disposition planning. UTI. Rocephin. (3) Acute anemia: Hemoglobin today unchanged at 10.6. Recheck. Aspirin therapy: Her friend tells me at home patient takes aspirin 500 mg twice daily. Patient is not sure why she is taking like this. States her doctor told her to take it that way. Thought it was due to stroke. Denies any epigastric pain or discomfort or dyspepsia. Add PPI. Collect Hemoccult. Reassess blood counts tonight and in the morning. Decrease aspirin dose to 81 mg daily. Plan Constipation: Without success with bowel regimen, ordered suppository, still no bowel movement charted. We will give enema as discussed. We will also give Relistor given she has been needing opioids. UTI: Proteus mirabilis. Continue Rocephin. HTN: Blood pressures currently soft with antihypertensives on hold. Attestations Medical Necessity Statement*: Continue hospitalization for assessment of management of dizziness episodes, optimization of pain control after multiple pelvic fractures, treatment of UTI, constipation., Disposition planning and arrangements. Coding Level of Care Code Acute Code for [facility] Diagnoses Dizzy spells R42 Multiple pelvic fractures S32.82XA Acute anemia D64.9
[2022-03-25] VITALS (11 sets, daily range): BP systolic 101–175; BP diastolic 60–76; PULSE 59–73; RESP 14–18; TEMP 36.5–37; O2SAT 89–97
[2022-03-25] MEDS: polyethylene glycol 3350 Pkt 17 gm PO ×2 (08:45→17:52)
[2022-03-25] MEDS: aspirin 81 mg Chew Tablet PO (08:45)
[2022-03-25] MEDS: pantoprazole DR 40 mg Tablet PO ×2 (08:45→17:52)
[2022-03-25] MEDS: cefTRIAXone 1,000 MG in sodium chloride 0.9% (plus) 50 ML 100 MG IV (08:46)
[2022-03-25] MEDS: methylnaltrexone 12 /0.6 mL INJ 12 MG SUBCUT (13:50)
--- NOTE | 2022-03-25 19:56 | P.PN_ITS ---
Subjective Subjective: She is still having episodes of dizziness. Discussed with her fluctuating blood pressures. Discussed with her we are not seeing any other significant abnormalities on TTE. No arrhythmias on telemetry. Orthostatics have been okay. Discussed with her possibility of autonomic instability, althou gh blood pressures well fluctuating are still within normal range. Discussed with her consideration for further treatment versus observation given additional treatment may push her blood pressures into either hypertensive or hypotensive territory and she is agreeable with more conservative approach. Discussed with her also psychogenic effect on blood pressures. She does state that she gets worked up about things easily and has been that way most of her life. Discussed with her that this certainly could be also affecting her blood pressures as well. She otherwise still has constipation, although earlier had declined both enema and Relistor. Discussing with her she states she will consider them. Vitals/I&O/Wt Last Vital Signs Temp 97.7 F 03/25/22 19:12 Pulse 62 03/25/22 19:12 Resp 14 03/25/22 19:12 BP 105/60 03/25/22 19:12 Pulse Ox 91 03/25/22 19:12 O2 Del Method 03/25/22 19:12 O2 Flow Rate 2 03/24/22 10:52 03/25/22 03/25/22 03/25/22 06:59 14:59 22:59 Intake Total 770 / 770 240 / 1010 Balance 770 / 770 240 / 1010 Physical Exam Const: COMMON NORMALS: patient oriented x3 and alert GENERAL APPEARANCE: cooperative and frail appearing ORIENTATION/CONSCIOUSNESS: Yes awake HENMT: COMMON NORMALS: oropharynx normal Neck/C-Spine: COMMON NORMALS: no JVD Resp: COMMON NORMALS: normal respiratory effort and clear to auscultation bilaterally AUSCULTATION: clear to auscultation bilaterally Cardio: COMMON NORMALS: no JVD, regular rhythm, S1 normal heart sound present, S2 normal heart sound present and No murmurs present (Cardio) RHYTHM: regular rhythm HEART SOUNDS: S1 normal heart sound present and S2 normal heart sound present GI: COMMON NORMALS: Normal to inspection, nondistended, normoactive bowel sounds present, Soft to palpation and non-tender INSPECTION: Yes abdominal distension PALPATION: Yes Soft to palpation Extremity: COMMON NORMALS: no joint enlargement and no pedal edema OTHER: No left thigh swelling. Neuro: COMMON NORMALS: patient oriented x3 and moves all extremities SENSORIUM/ORIENTATION: Yes alert Skin: COMMON NORMALS: no rashes or lesions noted GENERAL SKIN EXAM: no ra shes or lesions noted Data 03/23/22 04:24 03/23/22 04:24 A&P Assessment and plan (1) Dizzy spells: Discussed with her fluctuating blood pressures. Discussed with her we are not seeing any other significant abnormalities on TTE. No arrhythmias on telemetry. Orthostatics have been okay. Discussed with her possibility of autonomic instability, although blood pressures well fluctuating are still within normal range. Discussed with her consideration for further treatment versus observation given additional treatment may push her blood pressures into either hypertensive or hypotensive territory and she is agreeable with more conservative approach. Discussed with her also psychogenic effect on blood pressures. She does state that she gets worked up about things easily and has been that way most of her life. Discussed with her that this certainly could be also affecting her blood pressures as well. As previously discussed as well continue strict fall precautions, ambulation normally with walker. Denies vertigo, but continues to have dizzy spells worse than usual. Discussed also may be central. Has had dizziness ever since the prior CVA, although reports some dizziness even before CVA. Carotid duplex unremarkable including anterograde flow in the vertebrals. Continue aspirin. Completed treatment for UTI. Arrangements for walker. Discussed with her and her son strict precautions to avoid falls. Will benefit from further rehabilitation after discharge. Unable to be accepted over the weekend until Saturday. (2) Multiple pelvic fractures: Pain is becoming better controlled but still needing pain medication. Continue Dilaudid. Continue optimization of pain control. Arrangements for rehabilitation. Fractures of superior and inferior pubic rami. Follow-up hemoglobin discussed with her risk of acute blood loss anemia. Pain control. Cautious mobilization with physical therapy. Case management con sultation for disposition planning. (3) Acute anemia: Hemoglobin had remained steady. Aspirin therapy: Her friend tells me at home patient takes aspirin 500 mg twice daily. Patient is not sure why she is taking like this. States her doctor told her to take it that way. Thought it was due to stroke. Denies any epigastric pain or discomfort or dyspepsia. Continue PPI. Collect Hemoccult. Reassess blood counts tonight and in the morning. Decrease aspirin dose to 81 mg daily. (4) Obstipation: Still without success. She had initially declined enema and Relistor, on discussion states she will consider them various things have still not improved she has been feeling quite distended. It appears she had received the treatments. Still no bowel movement. We will add Shonda. Plan UTI: Proteus mirabilis. Completed course of treatment with Rocephin. HTN: Blood pressures currently soft with antihypertensives on hold. Would not resume at discharge. Attestations Medical Necessity Statement*: Continue admission for assessment of management of episodes of dizziness which had led to a fall with multiple pelvic fractures, management of obstipation. Discharge planning and arrangements. Coding Level of Care Code Acute Code for [facility] Diagnoses Dizzy spells R42 Multiple pelvic fractures S32.82XA Acute anemia D64.9 Obstipation K59.00
[2022-03-25] MEDS: peg /e-lyte soln 4,000 mL Btl 1500 ML PO (22:29)
[2022-03-26 03:20] VITALS: BP 114/54; PULSE 63; RESP 16; TEMP 36.6; O2SAT 92
--- NOTE | 2022-03-26 05:59 | CT_ITS ---
WS: [id number] CT HEAD TECHNIQUE: Noncontrast CT of the head obtained from the skullbase to the vertex. CLINICAL INFORMATION: sdizzyness COMPARISON: None. DLP: 1072.[address] scans at [facility] use at least one of these dose optimization techniques: automated e xposure control; mA and/or kV adjustment per patient size (includes targeted exams where dose is matc hed to clinical indication); or iterative reconstruction. FINDINGS: No evidence of intracranial hemorrhage or mass effect. Ventricular system and basal cisterns are dubon nt. Moderate small vessel changes with moderate parenchymal volume loss. No extra-axial fluid collect ions. Chronic infarct with encephalomalacia in the RIGHT parasagittal parietal and occipital lobes. Small a mount of fluid RIGHT maxillary sinus. Mastoid air cells well aerated. Intracranial vascular calcifica tion. Calcified scalp nodules CT/CT head wo con* [id number] IMPRESSION: 1. No evidence of intracranial hemorrhage or mass effect. 2. Moderate small vessel changes with moderate parenchymal volume loss. 3. 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 4. Vascular calcification. 5. No acute intracranial findings.
[2022-03-26 06:19] VITALS: PULSE 62
[2022-03-26 07:53] VITALS: BP 127/68; PULSE 69; RESP 16; TEMP 36.6; O2SAT 90
[2022-03-26] MEDS: aspirin 81 mg Chew Tablet PO (08:27)
[2022-03-26] MEDS: pantoprazole DR 40 mg Tablet PO (08:27)
[2022-03-26] MEDS: polyethylene glycol 3350 Pkt 17 gm PO (08:27)
--- NOTE | 2022-03-26 09:21 | PM.DCS ---
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 She was in quite a bit of pain in her left pelvis/hip upon the fall.? Had difficult time getting up, had to crawl on her needs to call for help.? He otherwise denies any other new symptoms.? She denies losing consciousness.? Has not had any headache.? Denies chest pain or pressure.? Has not been feeling more short of breath than usual.? In ER she is found to have acute left obturator ring fractures through the inferior and superior pubic rami.? She is unable to bear any weight. 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 We will have patient follow-up with Dr. Huggins, as outpatient, ambulation with a walker. Given location stroke, involving several lobes, possibly visual deficit? Resulting in recurrent falls, will refer her to ophthalmology. Patient was advised she have increased risk of falls, ambulate with care, ambulate with a walker Physical Exam Const: COMMON NORMALS: no acute distress and patient oriented x3 Resp: COMMON NORMALS: normal respiratory effort, No retractions, No use of accessory muscles and clear to auscultation bilaterally AUSCULTATION: clear to auscultation bilaterally Cardio: COMMON NORMALS: regular rate, regular rhythm, S1 normal heart sound present and S2 normal heart sound present RATE: regular rate RHYTHM: regular rhythm HEART SOUNDS: S1 normal heart sound present and S2 normal heart sound present GI: COMMON NORMALS: Normal to inspection, nondistended, normoactive bowel sounds present and Soft to palpation PALPATION: Yes Soft to palpation Extremity: COMMON NORMALS: no pedal edema Neuro: COMMON NORMALS: patient oriented x3 Psych: COMMON NORMALS: mental status grossly normal Discharge Data Studies Completed and Pending Completed Studies During Hospitalization Category Date Time Status CT femur LT wo con* [id number] Stat Cat Scan 03/19/22 17:[address] head wo con* [id number] Routine Cat Scan 03/26/22 05:59 Completed XR hip LT 1V wo/w pel [id number] Stat Exams 03/19/22 14:19 Completed XR pelvis 1-2V* [id number] Stat Exams 03/19/22 15:50 Completed CV carotid duplex BI* [id number] Routine Ultrasound 03/22/22 21:11 Completed CV. echo limited [id number] Routine Ultrasound 03/24/22 13:12 Completed Radiology Impressions Hip X-Ray 03/19/22 14:19 Impression: 1. Stable internal fixation of left intertrochanteric hip fracture. 2. Negative for new left hip fracture. Tonnis classification: Pelvis X-Ray 03/19/22 15:50 IMPRESSION: Acute left obturator ring fractures through the inferior and superior pubic rami. Femur CT 03/19/22 17:21 IMPRESSION: Redemonstrated left obturator ring fractures of the superior and inferior pubic rami. Left femur is intact. Head CT 03/26/22 05:59 IMPRESSION: 1. No evidence of intracranial hemorrhage or mass effect. 2. Moderate small vessel changes with moderate parenchymal volume loss. 3. 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 4. Vascular calcification. 5. No acute intracranial findings. Laboratory Results WBC 6.5 10^3/uL (4.0-10.0) 03/23/22 04:24 RBC 2.99 10^6/uL (4.1-5.3) L 03/23/22 04:24 Hgb 10.3 g/dL (11.5-15.3) L 03/23/22 04:24 Hct 31.2 % (37.0-47.0) L 03/23/22 04:24 MCV 104.3 fl (81-99) H 03/23/22 04:24 MCH 34.4 pg (28.0-34.0) H 03/23/22 04:24 MCHC 33.0 g/dL (30.0-36.0) 03/23/22 04:24 RDW 12.5 % (12.1-15.1) 03/23/22 04:24 Plt Count 184 10^3/cmm (130-400) 03/23/22 04:24 MPV 10.9 fL (7.4-10.4) H 03/23/22 04:24 Neut % (Auto) 63.3 % 03/23/22 04:24 Lymph % (Auto) 23.4 % 03/23/22 04:24 [place] % (Auto) 9.1 % 03/23/22 04:24 Eos % (Auto) 3.4 % 03/23/22 04:24 Baso % (Auto) 0.5 % 03/23/22 04:24 Neut # (Auto) 4.08 10^3/uL (1.8-7.7) 03/23/22 04:24 Lymph # (Auto) 1.5 10^3/uL (0.8-4.8) 03/23/22 04:24 [place] # (Auto) 0.6 10^3/uL (0.2-0.9) 03/23/22 04:24 Eos # (Auto) 0.2 10^3/uL (0.0-0.8) 03/23/22 04:24 Baso # (Auto) 0.0 10^3/uL (0.0-0.1) 03/23/22 04:24 Nucleated RBC % (auto) 0 % 03/23/22 04:24 Nucleated RBCs # 0.0 /100WBC 03/23/22 04:24 Sodium 136 mmol/L (136-145) 03/23/22 04:24 Potassium 4.0 mmol/L (3.5-5.1) 03/23/22 04:24 Chloride 101 mmol/L (98-107) 03/23/22 04:24 Carbon Dioxide 27 mmol/L (22-29) 03/23/22 04:24 Anion Gap 12.0 (5-19) 03/23/22 04:24 BUN 24 mg/dL (8-23) H 03/23/22 04:24 Creatinine 0.6 mg/dL (0.5-0.9) 03/23/22 04:24 GFR Calculation Not Reportable 03/23/22 04:24 Glucose 117 mg/dL (65-115) H 03/23/22 04:24 Calculated Osmolality 287 mOsm/kg (285-295) 03/23/22 04:24 Calcium 9.3 mg/dL (8.5-10.5) 03/23/22 04:24 Total Bilirubin 1.1 mg/dL (0.15-1.2) 03/19/22 15:38 AST 31 U/L (0-32) 03/19/22 15:38 ALT 33 U/L (0-33) 03/19/22 15:38 Alkaline Phosphatase 75 U/L (35-105) 03/19/22 15:38 Creatine Kinase 130 U/L (26-192) 03/20/22 01:08 Total Protein 6.5 g/dL (6.6-8.7) L 03/19/22 15:38 Albumin 4.1 g/dL (3.5-5.2) 03/19/22 15:38 Globulin 2.4 g/dL (1.3-4.6) 03/19/22 15:38 Urine Color Yellow (Yellow) 03/20/22 03:20 Urine Appearance Sl hazy (CLEAR) A 03/20/22 03:20 Urine pH 7 (5-7) 03/20/22 03:20 Ur Specific [place] 1.010 (1.005-1.030) 03/20/22 03:20 Urine Protein Neg (Negative) 03/20/22 03:20 Urine Glucose (UA) Norm (Normal) 03/20/22 03:20 Urine Ketones 1+ (Negative) H 03/20/22 03:20 Urine Blood 2+ (Negative) H 03/20/22 03:20 Urine Nitrate Positive (Negative) H 03/20/22 03:20 Urine Bilirubin Neg (Negative) 03/20/22 03:20 Urine Urobilinogen Norm mg/dL (Negative) 03/20/22 03:20 Ur Leukocyte Esterase 1+ (Negative) H 03/20/22 03:20 Urine RBC 10-15 /hpf (0-2) H 03/20/22 03:20 Urine WBC 25-40 /hpf (0-5) H 03/20/22 03:20 Ur Squamous Epith Cells 0-4 /hpf (0-5) H 03/20/22 03:20 Amorphous Sediment Not Reportable 03/20/22 03:20 Urine Bacteria 1+ /hpf (NONE) H 03/20/22 03:20 Vitals Last Vital Signs Temp 97.8 F 03/26/22 07:53 Pulse 69 03/26/22 07:53 Resp 16 03/26/22 07:53 BP 127/68 03/26/22 07:53 Pulse Ox 90 03/26/22 07:53 O2 Del Method 03/26/22 07:53 O2 Flow Rate 2 03/24/22 10:52 Discharge Plan Discharge Patient Disposition: Home Condition: Stable Prescriptions: New hydrocodone-acetaminophen 5-325 mg tablet 1 tab PO BID PRN (Reason: pain) 7 Days Qty: 14 0RF Continued atorvastatin 20 mg tablet 20 mg PO BEDTIME alendronate 70 mg tablet 70 mg PO Q7D Rx Instructions: on Saturdays amlodipine 10 mg tablet 10 mg PO DAILY aspirin 81 mg Tablet,Chewable 81 mg PO BID lisinopril 40 mg tablet 40 mg PO DAILY fluticasone propionate 50 mcg/actuation spray,suspension 2 spray INTRANASAL DAILY PRN (Reason: Nasal Congestion) Discontinued atenolol-chlorthalidone 50-25 mg tablet 1 tab PO DAILY potassium chloride 20 mEq tablet,ER particles/crystals 20 meq PO DAILY Discharge Orders: Discharge Order (Routine); Ordered 03/26/22 Ordered By: Hal Perez Other Ambulatory Orders: MR head wo con* [id number] (Routine) Timeframe: 1 Week Facility: [facility] - Location: [facility] Ordered By: Nic Cortes Referrals: Alexandra Huggins MD [Physician] - 2 weeks Mike Day [Primary Care Provider] - 1-3 days Discharge Diet: Cardiac Discharge Activity: Resume usual activity Patient Instructions: Opioid Safety Activity Restrictions/Additional Instructions: - Please follow-up with primary care provider in 1 week -If any recurrent dizziness please go to the emergency room Discharge Attestations Time Spent in Discharge Care*: less than 30 min Quality Metrics Clinical Quality Measures [ No reported AMI, CVA or VTE this stay] Coding Level of Care Code Acute Chg FW DC note Diagnoses Dizzy spells R42 Multiple pelvic fractures S32.82XA Acute anemia D64.9 Obstipation K59.00
[2022-03-26 12:00] VITALS: BP 124/65; PULSE 68; RESP 16; TEMP 36.6; O2SAT 93
[2022-03-26 12:39] VITALS: BP 124/65; PULSE 68; RESP 16; TEMP 36.6; O2SAT 93
== END 2022-03-26 14:57 | disposition skilled nursing facility (03) ==
LOC: ER 18:29 → MEDSURG 18:58
PROVIDERS: Admitting Provider Internal Medicine; Emergency Provider Family Medicine; PCP Family Medicine; Visit Provider Family Medicine
DX: R42 Dizziness and giddiness (principal); S32.82XA Multiple fractures of pelvis without disruption of pelvic ring, initial encounter for closed fracture; W19.XXXA Unspecified fall, initial encounter; D64.9 Anemia, unspecified; K59.00 Constipation, unspecified; I69.898 Other sequelae of other cerebrovascular disease; Z79.82 Long term (current) use of aspirin; I10 Essential (primary) hypertension; F17.200 Nicotine dependence, unspecified, uncomplicated; I65.23 Occlusion and stenosis of bilateral carotid arteries
CPT/HCPCS: 36415; 70450; 72170; 73501; 73700; 80048; 80053; 81001; 82274; 82550; 85018; 85025; 87077; 87086; 87186; 93308; 93880; 96361; 96372; 96374; 96375; 97110; 97116; 97162; 97167; 97530; 97535; 99285; G0378; J0696; J2212; J2270; J2405; J7030

== ENCOUNTER 2022-04-09 09:24 | Outpatient (CLI) | payer MEDICARE, SELFPAY ==
--- NOTE | 2022-04-09 09:30 | MR_ITS ---
WS: [id number] MRI BRAIN WITHOUT CONTRAST HISTORY: Recurrent dizziness, CVA COMPARISON: CT head 03/26/2022 TECHNIQUE: Diffusion imaging, multiplanar T1, T2 and FLAIR imaging obtained. No acute infarct. Diffusion imaging is normal. Moderate is severe small vessel ischemic changes throu ghout white matter. Prior infarct RIGHT occipital lobe. Small vessel ischemic changes in the [place]ris lam[place] aterally but greatest on the RIGHT. Diffuse moderate atrophy is symmetric. Small focus of hemosiderin in the posterior LEFT parietal lobe . Ventricles and extra-axial spaces are normal. No inferior displacement of the cerebellar tonsils. Clivus and pituitary gland are negative. Dural venous sinuses and [place] demonstrate no abnormality on this unenhanced studies. Paranasal sinuses: Marked opacification RIGHT maxillary sinus. Mild mucoperiosteal thickening through out the ethmoid air cells extending into the RIGHT frontal ethmoid recess. Mastoid air cells: Normal. Calvarium and scalp: No calvarial fracture. Focal calcification measuring 3.6 x 1.8 cm towards the RI GHT parietal vertex. Benign calvarial lesion. Small lesion measuring 1.0 cm on the LEFT. MR/MR head wo con* [id number] IMPRESSION: 1. No acute infarct. Diffusion imaging is normal. 2. Moderate atrophy with moderate to severe small vessel ischemic changes and prior infarcts. 3. Opacification RIGHT maxillary extending into the frontal ethmoid recess. 4. No acute hemorrhage.
== END 2022-04-09 09:25 | disposition home or self-care (01) ==
PROVIDERS: PCP Family Medicine; Visit Provider Internal Medicine
DX: R42 Dizziness and giddiness (principal); I63.9 Cerebral infarction, unspecified; G31.9 Degenerative disease of nervous system, unspecified
CPT/HCPCS: 70551

== ENCOUNTER → 2022-05-09 11:26 | Outpatient (BNVA) | payer MEDICARE, SELFPAY | PROVIDERS: PCP Family Medicine; Visit Provider Specialist | DX: R42 Dizziness and giddiness (principal); Z86.73 Personal history of transient ischemic attack (TIA), and cerebral infarction without residual deficits; F03.A0 Unspecified dementia, mild, without behavioral disturbance, psychotic disturbance, mood disturbance, and anxiety; R26.89 Other abnormalities of gait and mobility | CPT/HCPCS: 96116; 99205 ==

== ENCOUNTER 2024-05-20 07:30 | Emergency (ER) | payer MEDICARE, SELFPAY ==
[2024-05-20 07:32] VITALS: BP 184/84; PULSE 78; RESP 18; TEMP 36.7; O2SAT 92; BMI 20.1
--- NOTE | 2024-05-20 07:34 | ECG_ITS ---
[facility] Test Date: 2024-05-20 Pat Name: Nydia Goldstein Department: Room: Gender: Female [employer]: : 1940 Requested By: Asim Stover Order Number: [id number] Vinay MD: Virginia Cordova M.D. Measurements Intervals [place] Rate: 74 P: -80 NM: 137 QRS: -50 QRSD: 88 T: 0 QT: 353 QTc: 393 Interpretive Statements Possible JUNCTIONAL RHYTHM LEFT ANTERIOR FASCICULAR BLOCK [QRS AXIS <= -45, QR IN I, RS IN II] NONSPECIFIC T-WAVE ABNORMALITY Compared to ECG 02/28/2017 15:12:45 Junctional rhythm now present Left anterior fascicular block now present T-wave abnormality now present Sinus rhythm no longer present Myocardial infarct finding no longer present Electronically Signed On 05-20-2024 22:03:59 CDT by Virginia Cordova M.D. [email or web address] [id number]
--- NOTE | 2024-05-20 07:34 | XRR_ITS ---
PROCEDURE INFORMATION: Exam: XR Chest Exam date and time: 05/20/2024 7:36 AM Age: 83 years old Clinical indication: Shortness of breath; Additional info: Dyspnea/cough TECHNIQUE: Imaging protocol: Radiologic exam of the chest. Views: 1 view. COMPARISON: CT Chest w IV contrast* [id number] 02/28/2017 5:51 PM FINDINGS: Lungs: Emphysema. 1.6 cm retrocardiac hyperdense focus previously evaluated to be a hamartoma. 8 mm nodule within the left upper lobe is again visualized. Streaky opacities of the left lung base. Pleural spaces: No pleural effusion. No pneumothorax. Heart/Mediastinum: Cardiomegaly. Vasculature: Tortuous calcified aorta. Bones/joints: Healed left rib fractures. Degenerative change of the thoracolumbar spine with levoconvex scoliotic curvature of the lower thoracic spine. XR/XR chest 1V portable [id number] IMPRESSION: 1. Streaky opacities at the left lung base likely representing atelectasis. Superimposed infection is not excluded. 2. Other chronic findings as above.
--- NOTE | 2024-05-20 07:48 | PC.PHAR ---
patient is from [facility]
--- NOTE | 2024-05-20 07:54 | W.ED.SOB ---
HPI - SOB/Dyspnea General: Chief Complaint: Shortness of Breath/Dyspnea Stated Complaint: SOB Time Seen by Provider: 05/20/24 07:31 History of Present Illness: HPI Narrative: 83-year-old female [facility] emergency [facility] complaints of shortness of breath and confusion. She has some baseline dementia. She makes verbal responses but is not able to really significantly contribute to her history or make any specific complaints. Related Data Home Medications ?Medication ?Instructions ?Recorded ?Confirmed amlodipine 10 mg tablet 10 mg PO DAILY 03/19/22 05/20/24 atorvastatin 20 mg tablet 20 mg PO BEDTIME 03/19/22 05/20/24 fluticasone propionate 50 2 spray intranasal DAILY PRN Nasal 03/19/22 05/20/24 mcg/actuation nasal Congestion spray,suspension aspirin 325 mg tablet 325 mg PO QPM 05/20/24 05/20/24 bisacodyl 10 mg rectal suppository 10 mg ME DAILY PRN Constipation 05/20/24 05/20/24 (Dulcolax (bisacodyl)) bisacodyl 5 mg tablet,delayed 10 mg PO DAILY PRN Constipation 05/20/24 05/20/24 release (Dulcolax (bisacodyl)) calcium acetate(phosphat bind) 667 1,334 mg PO TID 05/20/24 05/20/24 mg capsule cetirizine 5 mg tablet 5 mg PO DAILY 05/20/24 05/20/24 cholecalciferol (vitamin D3) 10 10 mcg PO DAILY 05/20/24 05/20/24 mcg (400 unit) chewable tablet (Vitamin D3) donepezil 5 mg tablet 5 mg PO QPM 05/20/24 05/20/24 magnesium hydroxide 400 mg/5 mL 30 ml PO DAILY PRN Constipation 05/20/24 05/20/24 oral suspension (Milk of Magnesia) mirtazapine 7.5 mg tablet 7.5 mg PO DAILY 05/20/24 05/20/24 multivitamin 1 tab PO DAILY 05/20/24 05/20/24 pantoprazole 40 mg tablet,delayed 40 mg PO DAILY 05/20/24 05/20/24 release polyethylene glycol 3350 17 17 g PO BID 05/20/24 05/20/24 gram/dose oral powder potassium chloride 20 mEq 20 meq PO DAILY 05/20/24 05/20/24 tablet,extended release(part/cryst) sennosides 8.6 mg-docusate sodium 1 tab-cap PO BID 05/20/24 05/20/24 50 mg tablet wheat dextrin 5 gram/7.4 gram oral 3 g PO BID 05/20/24 05/20/24 powder (Benefiber Healthy Shape) Allergies Allergy/AdvReac Type Severity Reaction Status Date / Time No Known Allergies Allergy Unverified 05/09/22 11:44 PFSH ED PFSH: Medical History Fracture of left hip requiring operative repair Tibia fracture HTN (hypertension) CVA (cerebral vascular accident) Surgical History H/O right wrist surgery H/O: hysterectomy Family History Other Diabetes Hypertension Social History Smoking and tobacco/nicotine status: current every day tobacco/nicotine user Physical Exam Const: GENERAL APPEARANCE: cooperative ORIENTATION/CONSCIOUSNESS: Yes awake HENMT: COMMON NORMALS: normocephalic and atraumatic HEAD & SCALP: normocephalic and atraumatic Resp: COMMON NORMALS: normal respiratory effort, No retractions, No use of accessory muscles and clear to auscultation bilaterally AUSCULTATION: clear to auscultation bilaterally Cardio: COMMON NORMALS: regular rate, regular rhythm and No murmurs present (Cardio) RATE: regular rate RHYTHM: regular rhythm GI: COMMON NORMALS: Soft to palpation and No hepatosplenomegaly present AUSCULTATION: Yes normoactive bowel sounds PALPATION: Yes Soft to palpation, No Tenderness to palpation present (GI), No Guarding due to palpation present (GI) and Yes No hepatosplenomegaly present Extremity: COMMON NORMALS: normal to inspection, capillary refill normal, no clubbing, cyanosis or edema, no calf tenderness and no pedal edema Skin: COMMON NORMALS: no rashes or lesions noted GENERAL SKIN EXAM: no rashes or lesions noted Course Vital Signs: Vital signs: Vital Signs Temperature 98.1 F 05/20/24 07:32 Pulse Rate 80 05/20/24 13:56 Respiratory Rate 16 05/20/24 13:56 Blood Pressure 160/80 05/20/24 13:56 Pulse Oximetry 94 05/20/24 13:56 Oxygen Delivery Me thod Room Air 05/20/24 07:32 MDM - SOB/Dyspnea Medical Decision Making EKG shows a junctional rhythm no acute ST changes cardiac enzymes did not have a significant delta. Vital signs have been stable there is no leukocytosis. Chest x-ray chronic findings of believe findings on the left lung base atelectatic. CT of the head shows old infarcts nothing acute or new. Remainder of exam is unremarkable patient observed here for fairly extended period time while we were waiting to get her a ride back no difficulties behaviors. Vitals remained stable the entire time UA was negative. Lab Data 05/20/24 08:14 05/20/24 08:14 Labs/Radiology: Radiology Impressions Chest X-Ray 05/20/24 07:34 IMPRESSION: 1. Streaky opacities at the left lung base likely representing atelectasis. Superimposed infection is not excluded. 2. Other chronic findings as above. Head CT 05/20/24 10:30 IMPRESSION: 1. Moderate symmetric atrophy with a remote RIGHT occipital lobe infarct. 2. No acute intracranial hemorrhage or edema. 3. Advanced small vessel disease. 4. Acute paranasal sinusitis. Laboratory Results WBC 8.43 10^3/uL (3.29-11.43) 05/20/24 08:14 RBC 3.60 10^6/uL (3.85-5.65) L 05/20/24 08:14 Hgb 11.10 g/dL (11.27-16.99) L 05/20/24 08:14 Hct 34.9 % (36-47) L 05/20/24 08:14 MCV 96.9 fl (85-98) 05/20/24 08:14 MCH 30.8 pg (27-33) 05/20/24 08:14 MCHC 31.8 g/dL (30-55) 05/20/24 08:14 RDW 14.5 % (12.1-15.1) 05/20/24 08:14 Plt Count 311 10^3/cmm (157-399) 05/20/24 08:14 MPV 9.7 fL (7.4-10.4) 05/20/24 08:14 Neut % (Auto) 80.1 % 05/20/24 08:14 Lymph % (Auto) 15.2 % 05/20/24 08:14 [place] % (Auto) 3.2 % 05/20/24 08:14 Eos % (Auto) 0.8 % 05/20/24 08:14 Baso % (Auto) 0.5 % 05/20/24 08:14 Neut # (Auto) 6.75 10^3/uL (1.8-7.7) 05/20/24 08:14 Lymph # (Auto) 1.3 10^3/uL (0.8-4.8) 05/20/24 08:14 [place] # (Auto) 0.3 10^3/uL (0.2-0.9) 05/20/24 08:14 Eos # (Auto) 0.1 10^3/uL (0.0-0.8) 05/20/24 08:14 Baso # (Auto) 0.0 10^3/uL (0.0-0.1) 05/20/24 08:14 Nucleated RBC % (auto) 0 % 05/20/24 08:14 Nucleated RBCs # 0.0 /100WBC 05/20/24 08:14 Specimen Type Arterial 05/20/24 08:03 Sample Site Brachial, right 05/20/24 08:03 ABG pH 7.50 (7.35-7.45) H 05/20/24 08:03 ABG pCO2 35.6 mmHg (35-45) 05/20/24 08:03 ABG pO2 59.3 mmHg (80.0-100.0) L 05/20/24 08:03 ABG PO2/FiO2 Ratio 282 05/20/24 08:03 ABG HCO3 27.4 mmol/L (22-26) H 05/20/24 08:03 ABG O2 Saturation 91.8 05/20/24 08:03 ABG Base Excess 4.1 mmol/L (-2.0-2.0) H 05/20/24 08:03 Angel Test N/a 05/20/24 08:03 A-a O2 Gradient 5.7 mmHg (5-10) 05/20/24 08:03 Hematocrit 34.3 % (37-47) L 05/20/24 08:03 Hgb O2 Saturation 89.6 % (95-100) L 05/20/24 08:03 Carboxyhemoglobin 1.4 %THgb (0.4-20.1) 05/20/24 08:03 Methemoglobin 1.0 % (0.4-1.5) 05/20/24 08:03 Total Hemoglobin 11.2 g/dL (12-16) L 05/20/24 08:03 Sodium 137.0 mmol/L (131-143) 05/20/24 08:03 Potassium 3.9 mmol/L (3.5-5.0) 05/20/24 08:03 Glucose 110.0 mg/dL (70-115) 05/20/24 08:03 Ionized Calcium 1.3 mmol/L (1.1-1.4) 05/20/24 08:03 O2 Delivery Device Room air 05/20/24 08:03 FiO2 21.0 % 05/20/24 08:03 Receiver ID Amh 05/20/24 08:03 Sodium 139 mmol/L (136-145) 05/20/24 08:14 Potassium 4.6 mmol/L (3.5-5.1) 05/20/24 08:14 Chloride 102 mmol/L (98-107) 05/20/24 08:14 Carbon Dioxide 26 mmol/L (22-29) 05/20/24 08:14 Anion Gap 15.6 (5-19) 05/20/24 08:14 BUN 27 mg/dL (8-23) H 05/20/24 08:14 Creatinine 1.5 mg/dL (0.5-0.9) H 05/20/24 08:14 GFR Calculation Not Reportable 05/20/24 08:14 Glucose 110 mg/dL (65-115) 05/20/24 08:14 Calculated Osmolality 294 mOsm/kg (285-295) 05/20/24 08:14 Calcium 9.9 mg/dL (8.5-10.5) 05/20/24 08:14 Total Bilirubin 0.7 mg/dL (0.15-1.2) 05/20/24 08:14 AST 20 U/L (0-32) 05/20/24 08:14 ALT 13 U/L (0-33) 05/20/24 08:14 Alkaline Phosphatase 93 U/L (35-105) 05/20/24 08:14 Troponin T Baseline 45 ng/L (0-10) H 05/20/24 08:14 Troponin T 120 Minute 41.36 ng/L (0-10) H 05/20/24 10:13 Delta Troponin T -3.64 ABS# (0-10) L 05/20/24 10:13 Total Protein 6.2 g/dL (6.6-8.7) L 05/20/24 08:14 Albumin 3.4 g/dL (3.5-5.2) L 05/20/24 08:14 Globulin 2.8 g/dL (1.3-4.6) 05/20/24 08:14 Urine Color Yellow (Yellow) 05/20/24 08:26 Urine Appearance Clear (CLEAR) 05/20/24 08:26 Urine pH 8.0 (5-7) A 05/20/24 08:26 Ur Specific [place] 1.015 (1.005-1.030) 05/20/24 08:26 Urine Protein 3+ (Negative) A 05/20/24 08:26 Urine Glucose (UA) Negative (Normal) 05/20/24 08:26 Urine Ketones Negative (Negative) 05/20/24 08:26 Urine Blood Negative (Negative) 05/20/24 08:26 Urine Nitrate Negative (Negative) 05/20/24 08:26 Urine Bilirubin Negative (Negative) 05/20/24 08:26 Urine Urobilinogen 1.0 mg/dL (Negative) 05/20/24 08:26 Ur Leukocyte Esterase Negative (Negative) 05/20/24 08:26 Urine RBC 0-2 /hpf (0-2) 05/20/24 08:26 Urine WBC 0-5 /hpf (0-5) 05/20/24 08:26 Ur Squamous Epith Cells 0-5 /hpf (0-5) 05/20/24 08:26 Amorphous Sediment Not Reportable 05/20/24 08:26 Urine Bacteria None seen /hpf (NONE) 05/20/24 08:26 Hyaline Casts 4.95 /lpf 05/20/24 08:26 Influenza A (PCR) Negative (Negative) 05/20/24 07:50 Influenza Type B (PCR) Negative (Negative) 05/20/24 07:50 RSV (PCR) Negative (Negative) 05/20/24 07:50 SARS-CoV-2 (PCR) Negative (Negative) 05/20/24 07:50 All radiology interpretation(s) finalized by discharge Discharge Plan Discharge Patient Disposition: Home Clinical Impression: Mild cognitive impairment with memory loss Condition: Stable Prescriptions: No Action multivitamin Tablet 1 tab PO DAILY donepezil 5 mg tablet 5 mg PO QPM aspirin 325 mg Tablet 325 mg PO QPM cetirizine 5 mg Tablet 5 mg PO DAILY sennosides-docusate sodium 8.6-50 mg Tablet 1 tab-cap PO BID potassium chloride 20 mEq tablet,ER particles/crystals 20 meq PO DAILY magnesium hydroxide [Milk of Magnesia] 400 mg/5 mL Suspension 30 ml PO DAILY PRN (Reason: Constipation) bisacodyl [Dulcolax (bisacodyl)] 10 mg Suppository 10 mg ME DAILY PRN (Reason: Constipation) pantoprazole 40 mg tablet,delayed release (DR/EC) 40 mg PO DAILY bisacodyl [Dulcolax (bisacodyl)] 5 mg Tablet,Delayed Release (Dr/Ec) 10 mg PO DAILY PRN (Reason: Constipation) polyethylene glycol 3350 17 gram/dose Powder 17 g PO BID mirtazapine 7.5 mg tablet 7.5 mg PO DAILY calcium acetate(phosphat bind) 667 mg capsule 1,334 mg PO TID cholecalciferol (vitamin D3) [Vitamin D3] 10 mcg (400 unit) Tablet,Chewable 10 mcg PO DAILY Benefiber Healthy Shape 5 gram/7.4 gram Powder 3 g PO BID atorvastatin 20 mg tablet 20 mg PO BEDTIME amlodipine 10 mg tablet 10 mg PO DAILY fluticasone propionate 50 mcg/actuation spray,suspension 2 spray INTRANASAL DAILY PRN (Reason: Nasal Congestion) Discharge Orders: Discharge ED (Routine); Ordered 05/20/24 Ordered By: Asim Nayak Referrals: Mike Day [Primary Care Provider] - Patient Instructions: Opioid Safety, Pain Management Activity Restrictions/Additional Instructions: Thank you for choosing [facility] for your healthcare needs today. It is very important that you follow up as instructed or that you return to the Emergency Department should you have concerns or if your condition changes or worsens in any way. You are seen the emergency room evaluation showed mild increase in your kidney function you are given IV fluids you should be rechecked in 2 to 3 days Print Language: [place] Island[place] Coding Level of Care Code ED Gas Plumber for Fracisco Cortez
[2024-05-20 08:14] LABS: ABG PCO2 35.6 mmHg (35-45); Alveolar-Arterial Oxygen Gradi 5.7 mmHg (5-10); Arterial Blood Gas Hematocrit 34.3 % (37-47); Base Excess ABG 4.1 mmol/L (-2.0-2.0); Blood Gas Operator Identificat AMH; Blood Gas Sample Site Brachial, right; Blood Gas Sample Type Arterial; Carboxyhemoglobin 1.4 %THgb (0.4-20.1); HCO3 ABG 27.4 mmol/L (22-26); HGB O2 Sat 89.6 % (95-100); Ionized Calcium Level - ABG 1.3 mmol/L (1.1-1.4); Oxygen Device ROOM AIR; Oxygen Saturation ABG 91.8; PO2 ABG 59.3 mmHg (80.0-100.0); PO2 FiO2 Ratio Arterial Blood 282; Potassium Level - ABG 3.9 mmol/L (3.5-5.0); Total Hemoglobin 11.2 g/dL (12-16)
[2024-05-20 08:25] LABS: Basophils % 0.5 %; Eosinophils # 0.1 10^3/uL (0.0-0.8); Eosinophils % 0.8 %; Hematocrit 34.9 % (36-47); Lymphocytes # 1.3 10^3/uL (0.8-4.8); Lymphocytes % 15.2 %; Mean Corpuscular HGB Conc 31.8 g/dL (30-55); Mean Corpuscular Hemoglobin 30.8 pg (27-33); Mean Corpuscular Volume 96.9 fl (85-98); Mean Platelet Volume 9.7 fL (7.4-10.4); Monocytes # 0.3 10^3/uL (0.2-0.9); Monocytes % 3.2 %; Neutrophils # 6.75 10^3/uL (1.8-7.7); Neutrophils % 80.1 %; Nucleated Red Blood Cells % 0 %; Platelet Count 311 10^3/cmm (157-399); Red Cell Distribution Width 14.5 % (12.1-15.1); White Blood Count 8.43 10^3/uL (3.29-11.43)
[2024-05-20 08:29] VITALS: BP 184/84; PULSE 71; O2SAT 96
[2024-05-20 08:36] LABS: Influenza A NEGATIVE (Negative); Influenza B NEGATIVE (Negative); Respiratory Syncytial Virus Ce NEGATIVE (Negative); SARS-CoV-2 PCR NEGATIVE (Negative)
[2024-05-20 08:42] LABS: Alanine Aminotransferase 13 U/L (0-33); Albumin Level 3.4 g/dL (3.5-5.2); Alkaline Phosphatase 93 U/L (35-105); Anion Gap 15.6 (5-19); Aspartate Amino Transferase 20 U/L (0-32); Blood Urea Nitrogen 27 mg/dL (8-23); Calcium 9.9 mg/dL (8.5-10.5); Carbon Dioxide 26 mmol/L (22-29); Chloride 102 mmol/L (98-107); Creatinine Clr Calc Pharmacy 22.8323; Globulin 2.8 g/dL (1.3-4.6); Glucose 110 mg/dL (65-115); Osmolality Calculated 294 mOsm/kg (285-295); Potassium 4.6 mmol/L (3.5-5.1); Sodium 139 mmol/L (136-145); Total Bilirubin 0.7 mg/dL (0.15-1.2); Total Protein 6.2 g/dL (6.6-8.7)
[2024-05-20 08:43] LABS: Troponin(5th) Baseline 45 ng/L (0-10)
[2024-05-20 08:49] LABS: Bilirubin Urine Negative (Negative); Blood Urine Negative (Negative); Glucose Urine UA Negative (Normal); Ketones Urine Negative (Negative); Leukocyte Esterase Urine Negative (Negative); Nitrate Urine Negative (Negative); Protein Urine 3+ (Negative); Specific Gravity, Urine 1.015 (1.005-1.030); Urine Appearance Clear (CLEAR); Urine Color Yellow (Yellow)
[2024-05-20 08:54] LABS: Add Urine Microscopic? YES; Bacteria Urine None Seen /hpf; Hyaline Casts Urine 4.95 /lpf; RBC Urine 0-2 /hpf (0-2); Squamous Epithelial Cell Urine 0-5 /hpf (0-5); WBC Urine 0-5 /hpf (0-5)
[2024-05-20 09:00] VITALS: BP 192/86; PULSE 76; O2SAT 95
[2024-05-20 09:18] LABS: UA Slide Review UA Slide Review Perf
--- NOTE | 2024-05-20 10:04 | ECG_ITS ---
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 Measurements Intervals [place] Rate: 75 P: -83 SD: 136 QRS: -56 QRSD: 89 T: 136 QT: 343 QTc: 385 Interpretive Statements JUNCTIONAL RHYTHM LEFT ANTERIOR FASCICULAR BLOCK [QRS AXIS <= -45, QR IN I, RS IN II] NONSPECIFIC T-WAVE ABNORMALITY Compared to ECG 05/20/2024 07:48:50 No significant changes Electronically Signed On 05-20-2024 22:15:52 CDT by Virginia Cordova M.D. [id number]
--- NOTE | 2024-05-20 10:30 | CT_ITS ---
WS: [id number] CT HEAD NONCONTRAST HISTORY: Increased confusion TECHNIQUE: Contiguous axial imaging performed through the brain. Bone and soft tissue windows. Sagittal and coronal reformats reviewed. All CT scans at [facility] use at least one of these dose optimization techniques: automated exposure control; mA and/or kV adjustment per patient size (includes targeted exams where dose is matched to clinical indication); or iterative reconstruction. DLP: 1200.31 mGy.cm COMPARISON: 03/26/2022 No acute intracranial hemorrhage, midline shift or mass effect. Moderate symmetric atrophy and advanced small vessel disease. Prior remote RIGHT occipital lobe infarct. Moderate cerebellar atrophy. Ventricles: Ventricles and extra-axial spaces are probably on the basis of atrophy. No inferior displacement of the cerebellar tonsils. Paranasal sinuses: Near complete opacification of the LEFT maxillary sinus. Small amount of mucoperiosteal thickening in the RIGHT maxillary sinus. LEFT ethmoid air cell disease. Bilateral frontal sinus mucoperiosteal thickening. Mastoid air cells: Well pneumatized. Calvarium and scalp: Hyperostosis frontalis interna. CT/CT head wo con* [id number] IMPRESSION: 1. Moderate symmetric atrophy with a remote RIGHT occipital lobe infarct. 2. No acute intracranial hemorrhage or edema. 3. Advanced small vessel disease. 4. Acute paranasal sinusitis.
[2024-05-20] MEDS: labetalol 5 mg/mL SDV 20mL 10 MG IVP (10:36)
[2024-05-20 10:53] LABS: Troponin 5 2HR 41.36 ng/L (0-10)
[2024-05-20 10:54] LABS: Troponin 5 2HR Delta -3.64 ABS# (0-10)
[2024-05-20 10:57] VITALS: BP 170/75; PULSE 60; O2SAT 99
[2024-05-20 12:00] VITALS: BP 149/129; PULSE 68; O2SAT 98
[2024-05-20] MEDS: sodium chloride 0.9% 1,000 ML 999 ML IV (13:01)
[2024-05-20 13:56] VITALS: BP 160/80; PULSE 80; RESP 16; O2SAT 94
== END 2024-05-20 13:57 | disposition home or self-care (01) ==
PROVIDERS: Emergency Provider Family Medicine; PCP Family Medicine
DX: G31.84 Mild cognitive impairment of uncertain or unknown etiology (principal); Z79.82 Long term (current) use of aspirin; Z11.52 Encounter for screening for COVID-19; Z72.0 Tobacco use; I10 Essential (primary) hypertension; Z86.73 Personal history of transient ischemic attack (TIA), and cerebral infarction without residual deficits
CPT/HCPCS: 36600; 70450; 71045; 80051; 80053; 81001; 82330; 82805; 84484; 85025; 87637; 93005; 96374; 99285; J3490; J7030

== ENCOUNTER 2024-05-20 16:07 | Observation (INO) | payer MEDICARE, SELFPAY ==
[2024-05-20 16:07] VITALS: BP 185/71; PULSE 72; RESP 18; TEMP 36.4; O2SAT 92
--- NOTE | 2024-05-20 16:08 | W.ED.GENADLT ---
HPI - General Adult General: Chief complaint: Altered Mental Status Stated complaint: AMS Time Seen by Provider: 05/20/24 16:08 History of Present Illness: 84-year-old female with a history of dementia was here for a prolonged ER stay previously had negative cardiac enzymes negative head CT unremarkable chest x-ray normal urine other labs showed mild chronic kidney disease but no acute findings. Patient has dementia. CT head was negative she was discharged back to the halfway only immediately upon arrival they sent her back here again. While she was here previously her vital signs been stable her oxygen sat remained in the mid 90s on room air they reported that her oxygen sat was in the 70s here she is 94 degrees on room air. She is again as we had found her previously responsive to stimuli but not able to contribute at all to any of her history. She does not give response to verbal questions. Exam otherwise remains unchanged from previous. Cardiac enzymes on previous visits did not show any elevation in her white count was normal. Her hemoglobin was improved from previous hemoglobins but mildly anemic. Related Data Home Medications ?Medication ?Instructions ?Recorded ?Confirmed amlodipine 10 mg tablet 10 mg PO DAILY 03/19/22 05/20/24 atorvastatin 20 mg tablet 20 mg PO BEDTIME 03/19/22 05/20/24 fluticasone propionate 50 2 spray intranasal DAILY PRN Nasal 03/19/22 05/20/24 mcg/actuation nasal Congestion spray,suspension aspirin 325 mg tablet 325 mg PO QPM 05/20/24 05/20/24 bisacodyl 10 mg rectal suppository 10 mg ME DAILY PRN Constipation 05/20/24 05/20/24 (Dulcolax (bisacodyl)) bisacodyl 5 mg tablet,delayed 10 mg PO DAILY PRN Constipation 05/20/24 05/20/24 release (Dulcolax (bisacodyl)) calcium acetate(phosphat bind) 667 1,334 mg PO TID 05/20/24 05/20/24 mg capsule cetirizine 5 mg tablet 5 mg PO DAILY 05/20/24 05/20/24 cholecalciferol (vitamin D3) 10 10 mcg PO DAILY 05/20/24 05/20/24 mcg (400 unit) chewable tablet (Vitamin D3) donepezil 5 mg tablet 5 mg PO QPM 05/20/24 05/20/24 magnesium hydroxide 400 mg/5 mL 30 ml PO DAILY PRN Constipation 05/20/24 05/20/24 oral suspension (Milk of Magnesia) mirtazapine 7.5 mg tablet 7.5 mg PO DAILY 05/20/24 05/20/24 multivitamin 1 tab PO DAILY 05/20/24 05/20/24 pantoprazole 40 mg tablet,delayed 40 mg PO DAILY 05/20/24 05/20/24 release polyethylene glycol 3350 17 17 g PO BID 05/20/24 05/20/24 gram/dose oral powder potassium chloride 20 mEq 20 meq PO DAILY 05/20/24 05/20/24 tablet,extended release(part/cryst) sennosides 8.6 mg-docusate sodium 1 tab-cap PO BID 05/20/24 05/20/24 50 mg tablet wheat dextrin 5 gram/7.4 gram oral 3 g PO BID 05/20/24 05/20/24 powder (Benefiber Healthy Shape) Allergies Allergy/AdvReac Type Severity Reaction Status Date / Time No Known Allergies Allergy Unverified 05/09/22 11:44 Review of Systems General: Reports: ROS unobtainable due to medical condition and ROS unobtainable due to mental status PFS ED PFSH: Medical History (Updated 05/21/24 @ 06:29 by Asim Nayak DO) History of CVA (cerebrovascular accident) Multiple pelvic fractures Fracture of left hip requiring operative repair Tibia fracture HTN (hypertension) CVA (cerebral vascular accident) Surgical History H/O right wrist surgery H/O: hysterectomy Family History Other Diabetes Hypertension Social History Smoking and tobacco/nicotine status: current every day tobacco/nicotine user Physical Exam Const: COMMON NORMALS: no acute distress HENMT: COMMON NORMALS: normocephalic, atraumatic and hearing grossly normal bilaterally HEAD & SCALP: normocephalic and atraumatic Resp: COMMON NORMALS: normal respiratory effort, No retractions, No use of accessory muscles and clear to auscultation bilaterally AUSCULTATION: clear to auscultation bilaterally Cardio: COMMON NORMALS: regular rate, regular rhythm and No murmurs present (Cardio) RATE: regular rate RHYTHM: regular rhythm GI: COMMON NORMALS: Soft to palpation and No hepatosplenomegaly present AUSCULTATION: Yes normoactive bowel sounds PALPATION: Yes Soft to palpation, No Tenderness to palpation present (GI), No Guarding due to palpation present (GI) and Yes No hepatosplenomegaly present Extremity: COMMON NORMALS: normal to inspection, capillary refill normal, no clubbing, cyanosis or edema, no calf tenderness and no pedal edema Skin: COMMON NORMALS: no rashes or lesions noted GENERAL SKIN EXAM: no rashes or lesions noted Course Vital Signs: Vital signs: Vital Signs Temperature 98.8 F 05/21/24 05:11 Pulse Rate 68 05/21/24 05:11 Respiratory Rate 15 05/21/24 05:11 Blood Pressure 132/70 05/21/24 05:11 Pulse Oximetry 98 05/21/24 05:11 Oxygen Delivery Me thod Room Air 05/21/24 01:11 [facility] - General Adult Medical Decision Making Care signed out to Dr. Farrell at change of shift. See final notes for diagnosis and disposition. Lab Data 05/21/24 05:40 05/20/24 16:28 Radiology Impressions Abdomen/Pelvis CT 05/20/24 16:13 IMPRESSION: 1. Significantly limited evaluation due to lack of intravenous contrast and significant motion as well as streak artifacts. 2. Severe colonic and rectal stool burden, which may be seen with constipation and/or rectal impaction. 3. Multiple hypodense bilateral renal lesions and hyperdense left renal lesion. These are incompletely characterized. Further evaluation with dedicated ultrasound study is recommended. 4. Cardiomegaly with pericardial effusion. 5. Consolidative opacity within left lower lobe, which may represent atelectasis , however superimposed infection is not excluded. Chest X-Ray 05/20/24 16:13 IMPRESSION: 1. Mildly asymmetric streaky opacities within right lung base, likely represent atelectasis. Superimposed infection is not excluded. 2. Other chronic findings as above. Laboratory Results WBC 15.01 10^3/uL (3.29-11.43) H 05/20/24 17:28 Corrected WBC Cancelled 05/20/24 16:28 RBC 3.72 10^6/uL (3.85-5.65) L 05/20/24 17: Hgb 11.40 g/dL (11.27-16.99) 05/20/24 17: Hct 35.0 % (36-47) L 05/20/24 17: MCV 94.1 fl (85-98) 05/20/24 17: MCH 30.6 pg (27-33) 05/20/24 17: MCHC 32.6 g/dL (30-55) 05/20/24 17: RDW 14.5 % (12.1-15.1) 05/20/24 17: Plt Count 327 10^3/cmm (157-399) 05/20/24 17: MPV 9.9 fL (7.4-10.4) 05/20/24 17: Gran % Cancelled 05/20/24 16:28 Neut % (Auto) 86.4 % 05/20/24 17: Lymph % (Auto) 10.0 % 05/20/24 17: [place] % (Auto) 2.9 % 05/20/24 17: Eos % (Auto) 0.1 % 05/20/24 17: Baso % (Auto) 0.3 % 05/20/24 17: Neut # (Auto) 12.98 10^3/uL (1.8-7.7) H 05/20/24 17: Lymph # (Auto) 1.5 10^3/uL (0.8-4.8) 05/20/24 17: [place] # (Auto) 0.4 10^3/uL (0.2-0.9) 05/20/24 17: Eos # (Auto) 0.0 10^3/uL (0.0-0.8) 05/20/24 17: Baso # (Auto) 0.1 10^3/uL (0.0-0.1) 05/20/24 17: Absolute Gran (auto) Cancelled 05/20/24 16:28 Nucleated RBC % (auto) 0 % 05/20/24 17: Nucleated RBCs # 0.0 /100WBC 05/20/24 17: Specimen Type Arterial 05/20/24 16:40 Sample Site Radial, right 05/20/24 16:40 ABG pH 7.46 (7.35-7.45) H 05/20/24 16:40 ABG pCO2 36.6 mmHg (35-45) 05/20/24 16:40 ABG pO2 59.7 mmHg (80.0-100.0) L 05/20/24 16:40 ABG HCO3 26.0 mmol/L (22-26) 05/20/24 16:40 ABG O2 Saturation 90.5 05/20/24 16:40 ABG Base Excess 2.2 mmol/L (-2.0-2.0) H 05/20/24 16:40 Angel Test Pos 05/20/24 16:40 A-a O2 Gradient 5.5 mmHg (5-10) 05/20/24 16:40 Hematocrit 33.9 % (37-47) L 05/20/24 16:40 Hgb O2 Saturation 88.2 % (95-100) L 05/20/24 16:40 Carboxyhemoglobin 1.4 %THgb (0.4-20.1) 05/20/24 16:40 Methemoglobin 1.2 % (0.4-1.5) 05/20/24 16:40 Total Hemoglobin 11.0 g/dL (12-16) L 05/20/24 16:40 Sodium 138.0 mmol/L (131-143) 05/20/24 16:40 Potassium 3.5 mmol/L (3.5-5.0) 05/20/24 16:40 Glucose 113.0 mg/dL (70-115) 05/20/24 16:40 Ionized Calcium 1.3 mmol/L (1.1-1.4) 05/20/24 16:40 O2 Delivery Device Room air 05/20/24 16:40 Cat Skinner ID Broma 05/20/24 16:40 Sodium 141 mmol/L (136-145) 05/20/24 16:28 Potassium 4.1 mmol/L (3.5-5.1) 05/20/24 16:28 Chloride 104 mmol/L (98-107) 05/20/24 16:28 Carbon Dioxide 18 mmol/L (22-29) L 05/20/24 16:28 Anion Gap 23.1 (5-19) H 05/20/24 16:28 BUN 25 mg/dL (8-23) H 05/20/24 16:28 Creatinine 1.2 mg/dL (0.5-0.9) H 05/20/24 16:28 GFR Calculation Not Reportable 05/20/24 16:28 Glucose 110 mg/dL (65-115) 05/20/24 16:28 Calculated Osmolality 297 mOsm/kg (285-295) H 05/20/24 16:28 Calcium 9.3 mg/dL (8.5-10.5) 05/20/24 16:28 Total Bilirubin 0.7 mg/dL (0.15-1.2) 05/20/24 16:28 AST 24 U/L (0-32) 05/20/24 16:28 ALT 13 U/L (0-33) 05/20/24 16:28 Alkaline Phosphatase 81 U/L (35-105) 05/20/24 16:28 Creatine Kinase 133 U/L (26-192) 05/20/24 16:28 Troponin T Baseline 40 ng/L (0-10) H 05/20/24 16:28 Troponin T 120 Minute 34.02 ng/L (0-10) H 05/20/24 18:15 Delta Troponin T -5.98 ABS# (0-10) L 05/20/24 18:15 NT-Pro-B Natriuret Pep 38275 pg/mL (0-450) H 05/20/24 16:28 Total Protein 5.8 g/dL (6.6-8.7) L 05/20/24 16:28 Albumin 3.1 g/dL (3.5-5.2) L 05/20/24 16:28 Globulin 2.7 g/dL (1.3-4.6) 05/20/24 16:28 Lipase 58 U/L (13-60) 05/20/24 16:28 Vitamin B12 387 pg/mL (232-1245) 05/20/24 16:28 Procalcitonin 0.08 ng/mL (0-0.5) 05/20/24 16:28 TSH 1.56 uIU/mL (0.27-4.20) 05/20/24 16:28 Serum Ketones Negative (Negative) 05/20/24 18:15 All radiology interpretation(s) finalized by discharge Discharge Plan Discharge Patient Disposition: Admitted As Inpatient Admit Provider: Ambrocio Stringer Clinical Impression: Altered mental status, Pneumonia, Constipation, FIDEL (acute kidney injury), Urinary retention Condition: Stable Coding Level of Care Code ED Director Corporate for Fracisco Cortez
--- NOTE | 2024-05-20 16:13 | CTR_ITS ---
PROCEDURE INFORMATION: Exam: CT Abdomen And Pelvis Without Contrast Exam date and time: 05/20/2024 4:30 PM Age: 83 years old Clinical indication: Abdominal pain; Generalized TECHNIQUE: Imaging protocol: Computed tomography of the abdomen and pelvis without contrast. Radiation optimization: All CT scans at this facility use at least one of these dose optimization techniques: automated exposure control; mA and/or kV adjustment per patient size (includes targeted exams where dose is matched to clinical indication); or iterative reconstruction. COMPARISON: CR XR pelvis 1-2V* [id number] 03/19/2022 4:06 PM RADIATION DOSE METRICS: Total DLP (mGy-cm): 357.43 FINDINGS: Limitations: Evaluation is severely limited due to motion artifact and streak artifact from left hip arthroplasty surgical hardware. Lungs: Consolidative opacity within left lower lobe. Heart: Cardiomegaly with pericardial effusion. Liver: Normal. No mass. Gallbladder and biliary ducts: Normal. No calcified stones. No ductal dilation. Pancreas: Normal. No ductal dilation. Spleen: Normal. No splenomegaly. Adrenal glands: Normal. No mass. Kidneys and ureters: Right kidney appears atrophic. Bilateral kidneys demonstrate multiple hypodense lesions, which may represent cysts but are incompletely characterized. Hyperdense 1.2 cm superior left renal pole lesion. Stomach and bowel: Severe colonic and rectal stool burden. Appendix: No evidence of appendicitis. Intraperitoneal space: Unremarkable. No free air. No significant fluid collection. Vasculature: Severe atherosclerosis of the abdominal aorta and its main branches. Lymph nodes: Unremarkable. No enlarged lymph nodes. Urinary bladder: Bladder is severely distended. Reproductive: Unremarkable as visualized. Bones/joints: Severe osteopenia. Sequela of prior left hip arthroplasty with old healed fractures of left pubic symphysis. Severe degenerative changes within visualized spine. Soft tissues: Unremarkable. Other findings: Emphysema. No obstructing calculi bilaterally. CT/CT abdomen pelvis wo con [id number] IMPRESSION: 1. Significantly limited evaluation due to lack of intravenous contrast and significant motion as well as streak artifacts. 2. Severe colonic and rectal stool burden, which may be seen with constipation and/or rectal impaction. 3. Multiple hypodense bilateral renal lesions and hyperdense left renal lesion. These are incompletely characterized. Further evaluation with dedicated ultrasound study is recommended. 4. Cardiomegaly with pericardial effusion. 5. Consolidative opacity within left lower lobe, which may represent atelectasis , however superimposed infection is not excluded.
--- NOTE | 2024-05-20 16:13 | XRR_ITS ---
PROCEDURE INFORMATION: Exam: XR Chest Exam date and time: 05/20/2024 4:25 PM Age: 83 years old Clinical indication: Cough and dyspnea; Additional info: Dyspnea/cough TECHNIQUE: Imaging protocol: Radiologic exam of the chest. Views: 1 view. COMPARISON: CR XR chest 1V portable [id number] 05/20/2024 7:36 AM FINDINGS: Lungs: Emphysema. Pleural spaces: Unremarkable. No pleural effusion. No pneumothorax. Heart/Mediastinum: 1.6 cm retrocardiac hyperdense focus, characterized as hamartoma on prior CT chest study. 8 mm left upper lobe nodule, appears stable. Streaky opacities within medial right lower lung. Cardiomegaly. Vasculature: Tortuous calcified aorta. Bones/joints: Sequela of prior healed left rib fractures. XR/XR chest 1V portable [id number] IMPRESSION: 1. Mildly asymmetric streaky opacities within right lung base, likely represent atelectasis. Superimposed infection is not excluded. 2. Other chronic findings as above.
--- NOTE | 2024-05-20 16:15 | ECG_ITS ---
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 Measurements Intervals [place] Rate: 78 P: -41 AL: 131 QRS: -56 QRSD: 81 T: 156 QT: 366 QTc: 418 Interpretive Statements SINUS RHYTHM LEFT AXIS DEVIATION [QRS AXIS < -30] MODERATE T-WAVE ABNORMALITY, CONSIDER LATERAL ISCHEMIA [-0.1+ mV T-WAVE IN I/aVL/V5/V6] Compared to ECG 05/20/2024 10:04:36 Left-axis deviation now present Possible ischemia now present Junctional rhythm no longer present Left anterior fascicular block no longer present T-wave abnormality still present Electronically Signed On 05-20-2024 21:52:14 CDT by Virginia Cordova M.D. [id number]
[2024-05-20 16:49] LABS: ABG PCO2 36.6 mmHg (35-45); ABG PH Result 7.46 (7.35-7.45); Alveolar-Arterial Oxygen Gradi 5.5 mmHg (5-10); Arterial Blood Gas Hematocrit 33.9 % (37-47); Base Excess ABG 2.2 mmol/L (-2.0-2.0); Blood Gas Allen Test Pos; Blood Gas Operator Identificat BROMA; Blood Gas Sample Site Radial, right; Blood Gas Sample Type Arterial; Carboxyhemoglobin 1.4 %THgb (0.4-20.1); HGB O2 Sat 88.2 % (95-100); Ionized Calcium Level - ABG 1.3 mmol/L (1.1-1.4); Methemoglobin 1.2 % (0.4-1.5); Oxygen Device ROOM AIR; Oxygen Saturation ABG 90.5; PO2 ABG 59.7 mmHg (80.0-100.0); Potassium Level - ABG 3.5 mmol/L (3.5-5.0)
[2024-05-20 17:33] LABS: Basophils # 0.1 10^3/uL (0.0-0.1); Basophils % 0.3 %; Eosinophils % 0.1 %; Lymphocytes # 1.5 10^3/uL (0.8-4.8); Mean Corpuscular HGB Conc 32.6 g/dL (30-55); Mean Corpuscular Hemoglobin 30.6 pg (27-33); Mean Corpuscular Volume 94.1 fl (85-98); Mean Platelet Volume 9.9 fL (7.4-10.4); Monocytes # 0.4 10^3/uL (0.2-0.9); Monocytes % 2.9 %; Neutrophils # 12.98 10^3/uL (1.8-7.7); Neutrophils % 86.4 %; Nucleated Red Blood Cells % 0 %; Platelet Count 327 10^3/cmm (157-399); Red Blood Count 3.72 10^6/uL (3.85-5.65); Red Cell Distribution Width 14.5 % (12.1-15.1); White Blood Count 15.01 10^3/uL (3.29-11.43)
[2024-05-20 17:41] LABS: Troponin(5th) Baseline 40 ng/L (0-10)
[2024-05-20 17:48] LABS: NT Pro B Type Natriuretic Pept 12258 pg/mL (0-450); Procalcitonin 0.08 ng/mL (0-0.5)
[2024-05-20 18:00] LABS: Alanine Aminotransferase 13 U/L (0-33); Albumin Level 3.1 g/dL (3.5-5.2); Alkaline Phosphatase 81 U/L (35-105); Blood Urea Nitrogen 25 mg/dL (8-23); Calcium 9.3 mg/dL (8.5-10.5); Carbon Dioxide 18 mmol/L (22-29); Chloride 104 mmol/L (98-107); Creatine Phosphokinase 133 U/L (26-192); Globulin 2.7 g/dL (1.3-4.6); Glucose 110 mg/dL (65-115); Lipase 58 U/L (13-60); Osmolality Calculated 297 mOsm/kg (285-295); Sodium 141 mmol/L (136-145); Total Bilirubin 0.7 mg/dL (0.15-1.2); Total Protein 5.8 g/dL (6.6-8.7)
[2024-05-20 18:07] LABS: Anion Gap 23.1 (5-19); Aspartate Amino Transferase 24 U/L (0-32); Potassium 4.1 mmol/L (3.5-5.1)
--- NOTE | 2024-05-20 18:15 | ECG_ITS ---
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 Measurements Intervals [place] Rate: 85 P: 265 ID: [id number] QRS: 71 QRSD: 86 T: -79 QT: 332 QTc: 395 Interpretive Statements Possible JUNCTIONAL RHYTHM WITH OCCASIONAL SUPRAVENTRICULAR PREMATURE COMPLEXES POSSIBLE ANTERIOR MYOCARDIAL INFARCTION , OF INDETERMINATE AGE [30 ms Q WAVE IN V3/V4, OR R < 0.2 mV IN V4] MODERATE T-WAVE ABNORMALITY, CONSIDER INFERIOR ISCHEMIA [-0.1+ mV T-WAVE IN II/aVF] Compared to ECG 05/20/2024 16:56:46 Junctional rhythm now present Myocardial infarct finding now present Sinus rhythm no longer present Left-axis deviation no longer present T-wave abnormality still present Possible ischemia still present Electronically Signed On 05-20-2024 22:13:00 CDT by Virginia Cordova M.D. [email or web address]
[2024-05-20 18:44] LABS: Ketone (Acetest) Serum Negative (Negative)
[2024-05-20 19:16] LABS: Troponin 5 2HR 34.02 ng/L (0-10)
[2024-05-20 19:17] LABS: Troponin 5 2HR Delta -5.98 ABS# (0-10)
--- NOTE | 2024-05-20 19:58 | W.ED.AMS ---
HPI - Altered Mental Status General: Chief Complaint: Altered Mental Status Stated Complaint: AMS Time Seen by Provider: 05/20/24 16:08 History of Present Illness: This patient was handed off to me at shift change by Dr. Nayak. CT scan of the abdomen pelvis was pending. This is the patient's second visit to the emergency department today for evaluation of altered mental status. Patient is a [facility]. She does have a history of dementia but evidently nurses state that she is significantly altered from her baseline. Related Data Home Medications ?Medication ?Instructions ?Recorded ?Confirmed amlodipine 10 mg tablet 10 mg PO DAILY 03/19/22 05/20/24 atorvastatin 20 mg tablet 20 mg PO BEDTIME 03/19/22 05/20/24 fluticasone propionate 50 2 spray intranasal DAILY PRN Nasal 03/19/22 05/20/24 mcg/actuation nasal Congestion spray,suspension aspirin 325 mg tablet 325 mg PO QPM 05/20/24 05/20/24 bisacodyl 10 mg rectal suppository 10 mg [place] DAILY PRN Constipation 05/20/24 05/20/24 (Dulcolax (bisacodyl)) bisacodyl 5 mg tablet,delayed 10 mg PO DAILY PRN Constipation 05/20/24 05/20/24 release (Dulcolax (bisacodyl)) calcium acetate(phosphat bind) 667 1,334 mg PO TID 05/20/24 05/20/24 mg capsule cetirizine 5 mg tablet 5 mg PO DAILY 05/20/24 05/20/24 cholecalciferol (vitamin D3) 10 10 mcg PO DAILY 05/20/24 05/20/24 mcg (400 unit) chewable tablet (Vitamin D3) donepezil 5 mg tablet 5 mg PO QPM 05/20/24 05/20/24 magnesium hydroxide 400 mg/5 mL 30 ml PO DAILY PRN Constipation 05/20/24 05/20/24 oral suspension (Milk of Magnesia) mirtazapine 7.5 mg tablet 7.5 mg PO DAILY 05/20/24 05/20/24 multivitamin 1 tab PO DAILY 05/20/24 05/20/24 pantoprazole 40 mg tablet,delayed 40 mg PO DAILY 05/20/24 05/20/24 release polyethylene glycol 3350 17 17 g PO BID 05/20/24 05/20/24 gram/dose oral powder potassium chloride 20 mEq 20 meq PO DAILY 05/20/24 05/20/24 tablet,extended release(part/cryst) sennosides 8.6 mg-docusate sodium 1 tab-cap PO BID 05/20/24 05/20/24 50 mg tablet wheat dextrin 5 gram/7.4 gram oral 3 g PO BID 05/20/24 05/20/24 powder (Benefiber Healthy Shape) Allergies Allergy/AdvReac Type Severity Reaction Status Date / Time No Known Allergies Allergy Unverified 05/09/22 11:44 [facility] ED PFSH: Medical History Fracture of left hip requiring operative repair Tibia fracture HTN (hypertension) CVA (cerebral vascular accident) Surgical History H/O right wrist surgery H/O: hysterectomy Family History Other Diabetes Hypertension Social History Smoking and tobacco/nicotine status: current every day tobacco/nicotine user Physical Exam Narrative: Please see Dr. Nayak's note regarding review of systems and physical exam. My note is serving as an addendum. Urinary Catheter Management: Uribe: Cath Placed During This Visit: yes Urinary Catheter Date of Insertion: 05/20/24 Urinary Catheter Time of Insertion: 18:20 Course Vital Signs: Vital signs: Vital Signs Temperature 97.6 F 05/20/24 16:07 Pulse Rate 72 05/20/24 16:07 Respiratory Rate 18 05/20/24 16:07 Blood Pressure 185/71 05/20/24 16:07 Pulse Oximetry 92 05/20/24 16:07 Oxygen Delivery Me thod Room Air 05/20/24 16:07 MDM - Altered Mental Status Medical Decision Making White blood cell count has increased from 8.4-15.0 between the 2 visits today. CMP revealed a bicarb of 18. Baseline troponin was 40 with a 2-hour level of 34. BNP was 12,258. Lipase 58. CT serum ketones negative. COVID, RSV and influenza negative. Chest x-ray revealed possible left lower lobe infiltrate versus atelectasis. CT scan of the abdomen pelvis was read by the radiologist. They do note significant constipation, renal lesions and possible left lower lobe infiltrate versus atelectasis. Patient will need to be admitted. I did start Rocephin and Zithromax. I discussed the case with Dr. Stringer, hospitalist. He did accept the patient for admission. Patient will be transferred to the floor shortly. She is stable. Lab Data 05/20/24 17:28 05/20/24 16:28 Radiology Impressions Abdomen/Pelvis CT 05/20/24 16:13 IMPRESSION: 1. Significantly limited evaluation due to lack of intravenous contrast and significant motion as well as streak artifacts. 2. Severe colonic and rectal stool burden, which may be seen with constipation and/or rectal impaction. 3. Multiple hypodense bilateral renal lesions and hyperdense left renal lesion. These are incompletely characterized. Further evaluation with dedicated ultrasound study is recommended. 4. Cardiomegaly with pericardial effusion. 5. Consolidative opacity within left lower lobe, which may represent atelectasis , however superimposed infection is not excluded. Chest X-Ray 05/20/24 16:13 IMPRESSION: 1. Mildly asymmetric streaky opacities within right lung base, likely represent atelectasis. Superimposed infection is not excluded. 2. Other chronic findings as above. Laboratory Results WBC 15.01 10^3/uL (3.29-11.43) H 05/20/24 17:28 Corrected WBC Cancelled 05/20/24 16:28 RBC 3.72 10^6/uL (3.85-5.65) L 05/20/24 17: Hgb 11.40 g/dL (11.27-16.99) 05/20/24 17: Hct 35.0 % (36-47) L 05/20/24 17: MCV 94.1 fl (85-98) 05/20/24 17: MCH 30.6 pg (27-33) 05/20/24 17: MCHC 32.6 g/dL (30-55) 05/20/24 17: RDW 14.5 % (12.1-15.1) 05/20/24 17: Plt Count 327 10^3/cmm (157-399) 05/20/24 17: MPV 9.9 fL (7.4-10.4) 05/20/24 17: Gran % Cancelled 05/20/24 16: Neut % (Auto) 86.4 % 05/20/24 17: Lymph % (Auto) 10.0 % 05/20/24 17: Bates % (Auto) 2.9 % 05/20/24 17: Eos % (Auto) 0.1 % 05/20/24 17: Baso % (Auto) 0.3 % 05/20/24 17: Neut # (Auto) 12.98 10^3/uL (1.8-7.7) H 05/20/24 17: Lymph # (Auto) 1.5 10^3/uL (0.8-4.8) 05/20/24 17: Bates # (Auto) 0.4 10^3/uL (0.2-0.9) 05/20/24 17: Eos # (Auto) 0.0 10^3/uL (0.0-0.8) 05/20/24 17: Baso # (Auto) 0.1 10^3/uL (0.0-0.1) 05/20/24 17: Absolute Gran (auto) Cancelled 05/20/24 16: Nucleated RBC % (auto) 0 % 05/20/24 17: Nucleated RBCs # 0.0 /100WBC 05/20/24 17:28 Specimen Type Arterial 05/20/24 16:40 Sample Site Radial, right 05/20/24 16:40 ABG pH 7.46 (7.35-7.45) H 05/20/24 16:40 ABG pCO2 36.6 mmHg (35-45) 05/20/24 16:40 ABG pO2 59.7 mmHg (80.0-100.0) L 05/20/24 16:40 ABG HCO3 26.0 mmol/L (22-26) 05/20/24 16:40 ABG O2 Saturation 90.5 05/20/24 16:40 ABG Base Excess 2.2 mmol/L (-2.0-2.0) H 05/20/24 16:40 Angel Test Pos 05/20/24 16:40 A-a O2 Gradient 5.5 mmHg (5-10) 05/20/24 16:40 Hematocrit 33.9 % (37-47) L 05/20/24 16:40 Hgb O2 Saturation 88.2 % (95-100) L 05/20/24 16:40 Carboxyhemoglobin 1.4 %THgb (0.4-20.1) 05/20/24 16:40 Methemoglobin 1.2 % (0.4-1.5) 05/20/24 16:40 Total Hemoglobin 11.0 g/dL (12-16) L 05/20/24 16:40 Sodium 138.0 mmol/L (131-143) 05/20/24 16:40 Potassium 3.5 mmol/L (3.5-5.0) 05/20/24 16:40 Glucose 113.0 mg/dL (70-115) 05/20/24 16:40 Ionized Calcium 1.3 mmol/L (1.1-1.4) 05/20/24 16:40 O2 Delivery Device Room air 05/20/24 16:40 Education Department Chair ID Broma 05/20/24 16:40 Sodium 141 mmol/L (136-145) 05/20/24 16:28 Potassium 4.1 mmol/L (3.5-5.1) 05/20/24 16:28 Chloride 104 mmol/L (98-107) 05/20/24 16:28 Carbon Dioxide 18 mmol/L (22-29) L 05/20/24 16:28 Anion Gap 23.1 (5-19) H 05/20/24 16:28 BUN 25 mg/dL (8-23) H 05/20/24 16:28 Creatinine 1.2 mg/dL (0.5-0.9) H 05/20/24 16:28 GFR Calculation Not Reportable 05/20/24 16:28 Glucose 110 mg/dL (65-115) 05/20/24 16:28 Calculated Osmolality 297 mOsm/kg (285-295) H 05/20/24 16:28 Calcium 9.3 mg/dL (8.5-10.5) 05/20/24 16:28 Total Bilirubin 0.7 mg/dL (0.15-1.2) 05/20/24 16:28 AST 24 U/L (0-32) 05/20/24 16:28 ALT 13 U/L (0-33) 05/20/24 16:28 Alkaline Phosphatase 81 U/L (35-105) 05/20/24 16:28 Creatine Kinase 133 U/L (26-192) 05/20/24 16:28 Troponin T Baseline 40 ng/L (0-10) H 05/20/24 16:28 Troponin T 120 Minute 34.02 ng/L (0-10) H 05/20/24 18:15 Delta Troponin T -5.98 ABS# (0-10) L 05/20/24 18:15 NT-Pro-B Natriuret Pep 66466 pg/mL (0-450) H 05/20/24 16:28 Total Protein 5.8 g/dL (6.6-8.7) L 05/20/24 16:28 Albumin 3.1 g/dL (3.5-5.2) L 05/20/24 16:28 Globulin 2.7 g/dL (1.3-4.6) 05/20/24 16:28 Lipase 58 U/L (13-60) 05/20/24 16:28 Procalcitonin 0.08 ng/mL (0-0.5) 05/20/24 16:28 Serum Ketones Negative (Negative) 05/20/24 18:15 All radiology interpretation(s) finalized by discharge Discharge Plan Discharge Patient Disposition: Admitted As Inpatient Clinical Impression: Altered mental status Qualifiers: Altered mental status type: unspecified Qualified Code(s): R41.82 - Altered mental status, unspecified Pneumonia Qualifiers: Pneumonia type: due to unspecified organism Laterality: left Lung location: lower lobe of lung Qualified Code(s): J18.9 - Pneumonia, unspecified organism Condition: Stable Coding Level of Care Code ED Line Out Worker for Fracsico Cortez
[2024-05-20 20:47] VITALS: BP 174/74; PULSE 78; O2SAT 92
--- NOTE | 2024-05-20 20:52 | PM.HP ---
Providers/Chief Complaint Admitting Physician: Ambrocio Stringer MD Primary Care Provider: Mike Day Chief Complaint: AMS History of Present Illness Nydia Goldstein is a 83 year old female who was evaluated in the ER for confusion, initial workup was unremarkable, patient was sent back to the [facility] however sent back to the hospital for symptoms concerning for confusion. At the time of my evaluation no family at bedside, no records from [facility]. I have requesting managing supervisor to request records from the [facility]. When I evaluated the patient, she was laying supine in the bed, able to tell me her name and date of stating that she is feeling terrible, when I asked her if she is hurting anywhere she did not specify, she wanted to rest and left alone. I palpated her abdomen she did not show any sign of wincing, she is not endorsing dysuria recent nausea vomiting however nursing staff from the [facility] reported frequent loose stools today. Patient clinically looks extremely dry and dehydrated. Workup consistent with leukocytosis, normal ABG, normal BMP with mild FIDEL, negative delta troponin, BNP 12,000 CT scan of abdomen pelvis consistent with constipation, Cardiomegaly with pericardial effusion however blood pressure stable she is able to lay supine without any shortness of breath not requiring oxygen at all Will request procalcitonin she does have left lower lobe infiltrate versus atelectasis No signs of hydronephrosis Multiple renal cysts. Review of records revealed that patient has history of CVA, memory impairment, hypertension, dementia takes donepezil, GERD Review of Systems Const: Denies: fever(s) Eyes: Denies: change in vision ENMT: Denies: throat pain Medications/Allergies Home Medications ?Medication ?Instructions ?Recorded ?Confirmed ?Last Taken ?Type amlodipine 10 mg tablet 10 mg PO DAILY 03/19/22 05/20/24 05/19/24 History atorvastatin 20 mg tablet 20 mg PO BEDTIME 03/19/22 05/20/24 05/19/24 History fluticasone propionate 50 2 spray intranasal DAILY PRN Nasal 03/19/22 05/20/24 05/19/24 History mcg/actuation nasal Congestion spray,suspension aspirin 325 mg tablet 325 mg PO QPM 05/20/24 05/20/24 05/19/24 History bisacodyl 10 mg rectal suppository 10 mg [place] DAILY PRN Constipation 05/20/24 05/20/24 Unknown History (Dulcolax (bisacodyl)) bisacodyl 5 mg tablet,delayed 10 mg PO DAILY PRN Constipation 05/20/24 05/20/24 Unknown History release (Dulcolax (bisacodyl)) calcium acetate(phosphat bind) 667 1,334 mg PO TID 05/20/24 05/20/24 05/19/24 History mg capsule cetirizine 5 mg tablet 5 mg PO DAILY 05/20/24 05/20/24 05/19/24 History cholecalciferol (vitamin D3) 10 10 mcg PO DAILY 05/20/24 05/20/24 05/19/24 History mcg (400 unit) chewable tablet (Vitamin D3) donepezil 5 mg tablet 5 mg PO QPM 05/20/24 05/20/24 05/19/24 History magnesium hydroxide 400 mg/5 mL 30 ml PO DAILY PRN Constipation 05/20/24 05/20/24 Unknown History oral suspension (Milk of Magnesia) mirtazapine 7.5 mg tablet 7.5 mg PO DAILY 05/20/24 05/20/24 05/19/24 History multivitamin 1 tab PO DAILY 05/20/24 05/20/24 05/19/24 History pantoprazole 40 mg tablet,delayed 40 mg PO DAILY 05/20/24 05/20/24 05/19/24 History release polyethylene glycol 3350 17 17 g PO BID 05/20/24 05/20/24 05/19/24 History gram/dose oral powder potassium chloride 20 mEq 20 meq PO DAILY 05/20/24 05/20/24 05/19/24 History tablet,extended release(part/cryst) sennosides 8.6 mg-docusate sodium 1 tab-cap PO BID 05/20/24 05/20/24 05/19/24 History 50 mg tablet wheat dextrin 5 gram/7.4 gram oral 3 g PO BID 05/20/24 05/20/24 05/19/24 History powder (Benefiber Healthy Shape) Allergies Allergy/AdvReac Type Severity Reaction Status Date / Time No Known Allergies Allergy Unverified 05/09/22 11:44 PFSH Acute PFSH: Medical History (Updated 05/20/24 @ 22:26 by Ambrocio Stringer MD) History of CVA (cerebrovascular accident) Multiple pelvic fractures Fracture of left hip requiring operative repair Tibia fracture HTN (hypertension) CVA (cerebral vascular accident) Surgical History H/O right wrist surgery H/O: hysterectomy Family History Other Diabetes Hypertension Social History Smoking and tobacco/nicotine status: current every day tobacco/nicotine user Vitals/I&O/Wt Last Vital Signs Temp 97.6 F 05/20/24 16:07 Pulse 78 05/20/24 20:47 Resp 18 05/20/24 16:07 BP 174/74 05/20/24 20:47 Pulse Ox 92 05/20/24 20:47 O2 Del Method Room Air 05/20/24 20:47 Physical Exam Narrative: Clinical signs of dehydration Hypovolemic Dry mucous membrane Able to follow commands Able to tell me her name and date of Able to move her extremities I do not appreciate any focal deficit Uribe catheter in place No sick abdominal tenderness on palpation S1, S2 No audible thyroid wheezing Currently on room air Laying supine She is not participating very well during interview and clinical exam, trying to keep her eyes closed and rest Urinary Catheter Management: Uribe: Cath Placed During This Visit: yes Urinary Catheter Date of Insertion: 05/20/24 Urinary Catheter Time of Insertion: 18:20 Data 05/20/24 17:28 05/20/24 16:28 A&P Assessment and plan (1) Altered mental status: Qualifiers: Altered mental status type: unspecified Qualified Code(s): R41.82 - Altered mental status, unspecified (2) Mild cognitive impairment with memory loss: (3) Pneumonia: Qualifiers: Laterality: left Lung location: lower lobe of lung Pneumonia type: due to unspecified organism Qualified Code(s): J18.9 - Pneumonia, unspecified organism (4) Constipation: (5) Dehydration: (6) FIDEL (acute kidney injury): Plan Delirium with underlying dementia Metabolic encephalopathy Multifactorial: Likely related to poor p.o. intake, dehydration and constipation Patient is not wanting to eat, I have asked nurse to give her some cranberry juice mixed with lactulose She has severe constipation, will give her enema, lactulose and mag citrate Uribe catheter in place Will start IV fluid hydration Do not appreciate any focal deficits No sign of stroke at all, she is afebrile Monitor B12 TSH FIDEL: Anticipate improvement with IV fluid hydration, Uribe catheter was placed No sign of hydronephrosis Concern for left lower lobe infiltrate Procalcitonin is not high, she is not requiring oxygen, moderate leukocytosis She has received ceftriaxone and azithromycin I would like to monitor her off antibiotics for next 24 hours Cardiomegaly with pericardial fusion: Hemodynamically stable: Will request echo Full code Request records from [facility] Cardiac diet Abnormal BNP with clinically patient extremely dry: Request D-dimer UA showing alkaline pH with proteinuria Serum ketones negative: Respiratory panel negative PDMP PDMP Reviewed: Not Reviewed Attestations Medical Necessity Statement*: Anticipating discharge within 24 to 48 hours Diagnoses Altered mental status R41.82 Altered mental status type: unspecified Mild cognitive impairment with memory loss G31.84 Pneumonia J18.9 Laterality: left Lung location: lower lobe of lung Pneumonia type: due to unspecified organism Constipation K59.00 Dehydration E86.0 FIDEL (acute kidney injury) N17.9
[2024-05-20] MEDS: AZITHROMYCIN ADD-Vantage 500 MG in 0.9% NaCl ADD-Vantage 250 ML 250 MG IV (21:16)
[2024-05-20] MEDS: cefTRIAXone 2,000 mg SDV 2000 MG IVP (21:17)
[2024-05-20 21:25] VITALS: BP 177/69; PULSE 84; O2SAT 92
[2024-05-20 21:46] VITALS: BMI 17.2
[2024-05-20] MEDS: magnesium citrate Btl 296 mL 150 ML PO (22:55)
[2024-05-20] MEDS: heparin 5,000 unit/mL INJ 1 mL 5000 UNIT SUBCUT (22:56)
[2024-05-20] MEDS: lactulose oral liq 20 gm/30 mL UDC PO (22:56)
[2024-05-20] MEDS: sodium chloride 0.9% 1,000 ML 75 ML IV (23:00)
[2024-05-20 23:01] LABS: Troponin 5 6HR 51.19 ng/L (0-10); Troponin 5 6HR Delta 11.19 ng/L (0-12)
[2024-05-21] VITALS (7 sets, daily range): BP systolic 132–188; BP diastolic 65–85; PULSE 65–77; RESP 15–18; TEMP 36.5–37.4; O2SAT 91–98
[2024-05-21 01:07] LABS: Thyroid Stimulating Hormone 1.56 uIU/mL (0.27-4.20); Vitamin B12 387 pg/mL (232-1245)
[2024-05-21] MEDS: lactulose oral liq 20 gm/30 mL UDC 10 GM PO (05:39)
[2024-05-21 06:09] LABS: Basophils # 0.1 10^3/uL (0.0-0.1); Basophils % 0.5 %; Eosinophils # 0.1 10^3/uL (0.0-0.8); Eosinophils % 0.9 %; Hematocrit 33.8 % (36-47); Lymphocytes # 2.2 10^3/uL (0.8-4.8); Lymphocytes % 22.3 %; Mean Corpuscular Hemoglobin 30.2 pg (27-33); Mean Corpuscular Volume 94.4 fl (85-98); Mean Platelet Volume 10.4 fL (7.4-10.4); Monocytes # 0.5 10^3/uL (0.2-0.9); Monocytes % 5.2 %; Neutrophils # 7.01 10^3/uL (1.8-7.7); Neutrophils % 70.8 %; Nucleated Red Blood Cells % 0 %; Platelet Count 336 10^3/cmm (157-399); Red Blood Count 3.58 10^6/uL (3.85-5.65); Red Cell Distribution Width 14.5 % (12.1-15.1)
[2024-05-21 06:32] LABS: Blood Urea Nitrogen 25 mg/dL (8-23); C Reactive Protein 6.3 mg/L (0.0-4.9); Calcium 9.1 mg/dL (8.5-10.5); Carbon Dioxide 22 mmol/L (22-29); Chloride 107 mmol/L (98-107); Creatinine Clr Calc Pharmacy 24.8339; Glucose 94 mg/dL (65-115); Magnesium 2.4 mg/dL (1.7-2.3); Osmolality Calculated 296 mOsm/kg (285-295); Phosphorus 4.1 mg/dL (2.5-4.5); Sodium 141 mmol/L (136-145)
[2024-05-21 06:37] LABS: Anion Gap 15.5 (5-19); Potassium 3.5 mmol/L (3.5-5.1)
--- NOTE | 2024-05-21 07:00 | USCV_ITS ---
Nydia Goldstein Age: 83 Gender: F : 1940 Exam Date: 05/21/2024 00:16 Ordering Phys: Ambrocio Stringer MD Technologist: GAVIN [place]am [place] [facility] [place]ication: Pericardial effusion, confusion AMS, diarrhea, dehydration. BP: 177 / 69 HR: 65 Rhythm: Sinus Technical Quality: Adequate MEASUREMENTS (Male / Female) Normal Values 2D ECHO LV Diastolic Diameter PLAX 4.0 cm 4.2 - 5.9 / 3.9 - 5.3 cm IVS Diastolic Thickness 1.5 cm 0.6 - 1.0 / 0.6 - 0.9 cm IVS Systolic Thickness 1.8 cm LVPW Diastolic Thickness 1.4 cm 0.6 - 1.0 / 0.6 - 0.9 cm LVPW Systolic Thickness 2.1 cm LVOT Diameter 1.7 cm LV Ejection Fraction 2D Teich 70.7 % LV Ejection Fraction MOD 4C 71.8 % LV Ejection Fraction MOD 2C 54.8 % LV Ejection Fraction 2C AL 54.5 % LA Diameter 3.5 cm Aorta at Sinotubular Diameter 3.5 cm IVC Diameter 1.3 cm M-MODE LA Ao Ratio MM 1.6 AV Cusp Separation MM 1.1 cm DOPPLER AV Peak Velocity 163.0 cm/s LVOT Peak Velocity 97.0 cm/s AV Area Cont Eq vti 1.8 cm squared AV Area Cont Eq pk 1.4 cm squared MV Peak Velocity 123.0 cm/s MV Area PHT 3.9 cm squared Mitral E to A Ratio 0.5 TR Peak Velocity 300.0 cm/s TR Peak Gradient 36.0 mmHg TV Peak E Velocity 38.0 cm/s PV Peak Velocity 87.0 cm/s FINDINGS Left Ventricle Left ventricle is normal in size. LV systolic function is normal with EF of 55-60%. No regional wall motion abnormalities. Grade 1 diastolic dysfunction Right Ventricle Normal in size and function Right Atrium Normal in isze Left Atrium Normal in size Mitral Valve Moderate mitral annular calcification. Mild mitral regurgitation. Aortic Valve Aortic valve is thickened. Mild aortic regurgitation. No significant stenosis. Tricuspid Valve Insufficient TR jet to calculate RVSP Pulmonic Valve Not well visualized Pericardium Medium sized pericardial effusion. Pleural effusion is seen. Aorta Normal in size IVC Appears to be normal CONCLUSIONS LV systolic function is normal with EF of 55-60% Grade 1 diastolic dysfunction Mild mitral regurgitation Mild aortic regurgitation Medium sized pericardial effusion. Pleural effusion is seen. Panfilo Sepulveda MD (Electronically Signed) Final Date: 22 May 2024 13:24 S
[2024-05-21] MEDS: sennosides-docusate Tablet 1 TAB PO ×2 (09:11→18:32)
[2024-05-21] MEDS: heparin 5,000 unit/mL INJ 1 mL 5000 UNIT SUBCUT ×2 (09:11→22:24)
[2024-05-21] MEDS: amlodipine 10 mg Tablet PO (09:11)
--- NOTE | 2024-05-21 12:54 | P.PN_ITS ---
Subjective 2 Subjective: Seen this morning. No acute events overnight. Appears confused at this time. Alert and oriented to self. States she is not doing well however when asked further as to how she is feeling she denies any pain shortness of breath or any other complaints at this time. Appears somewhat agitated. Patient had a large bowel movement this morning. Vitals/I&O/Wt Last Vital Signs Temp 97.7 F 05/21/24 11:03 Pulse 71 05/21/24 11:03 Resp 17 05/21/24 11:03 BP 160/67 05/21/24 11:03 Pulse Ox 96 05/21/24 11:03 O2 Del Method Room Air 05/21/24 11:03 05/20/24 05/21/24 05/21/24 22:59 06:59 14:59 Intake Total 250 / 250 Output Total 1000 / 1000 300 / 1300 Balance -750 / -750 -300 / -1050 Weight last 48 hrs Weight 42.723 kg Weight 42.723 kg Weight 42.728 kg Physical Exam 2 Narrative: Appears dehydrated dry mucous membranes. Able to follow commands and answer questions however is confused. Alert oriented to self Moves all 4 extremities, neuroexam nonfocal Abdomen soft nontender Lungs clear to auscultation bilaterally. S1, S2 No audible thyroid wheezing Currently on room air Laying supine Urinary Catheter Management: Uribe: Cath Placed During This Visit: yes Reason for Continuing Indwelling Catheter: Other Urinary Catheter Date of Insertion: 05/20/24 Urinary Catheter Time of Insertion: 18:20 Data 05/21/24 05:40 05/21/24 05:40 Micro: Microbiology 05/21/24 10:25 Blood Culture - Preliminary Blood SPECIMEN COLLECTED 05/21/24 10:27 Blood Culture - Preliminary Blood SPECIMEN COLLECTED A&P Assessment and plan (1) Altered mental status: Qualifiers: Altered mental status type: unspecified Qualified Code(s): R41.82 - Altered mental status, unspecified (2) Mild cognitive impairment with memory loss: (3) Pneumonia: Qualifiers: Laterality: left Lung location: lower lobe of lung Pneumonia type: due to unspecified organism Qualified Code(s): J18.9 - Pneumonia, unspecified organism (4) Constipation: (5) Dehydration: (6) FIDEL (acute kidney injury): Plan Delirium with underlying dementia Metabolic encephalopathy Multifactorial: Likely related to poor p.o. intake, dehydration and constipation Patient is not wanting to eat, I have asked nurse to give her some cranberry juice mixed with lactulose She has severe constipation, will give her enema, lactulose and mag citrate Uribe catheter in place Will start IV fluid hydration Do not appreciate any focal deficits No sign of stroke at all, she is afebrile Monitor B12 TSH FIDEL: Anticipate improvement with IV fluid hydration, Uribe catheter was placed No sign of hydronephrosis Concern for left lower lobe infiltrate Procalcitonin is not high, she is not requiring oxygen, moderate leukocytosis She has received ceftriaxone and azithromycin I would like to monitor her off antibiotics for next 24 hours Cardiomegaly with pericardial fusion: Hemodynamically stable: Will request echo Full code Request records from [facility] Cardiac diet Abnormal BNP with clinically patient extremely dry: Request D-dimer UA showing alkaline pH with proteinuria Serum ketones negative: Respiratory panel negative 05/21/2024 Patient had a large bowel movement this morning. Continue IV fluids. FIDEL improving. Will continue ceftriaxone, azithromycin. Creatinine 1.8 this morning. Check urine culture, sputum culture, blood cultures PDMP PDMP Reviewed: Not Reviewed Attestations 2 Medical Necessity Statement*: Anticipating discharge within 24 to 48 hours Diagnoses Altered mental status R41.82 Altered mental status type: unspecified Mild cognitive impairment with memory loss G31.84 Pneumonia J18.9 Laterality: left Lung location: lower lobe of lung Pneumonia type: due to unspecified organism Constipation K59.00 Dehydration E86.0 FIDEL (acute kidney injury) N17.9
[2024-05-21] MEDS: sodium chloride 0.9% 1,000 ML 75 ML IV (13:50)
[2024-05-21] MEDS: azithromycin 250 mg Tablet 500 MG PO (14:08)
[2024-05-21] MEDS: cefTRIAXone 1,000 mg SDV 1000 MG IVP (14:08)
[2024-05-21] MEDS: donepezil 5 MG Tablet PO (18:32)
[2024-05-21] MEDS: aspirin 325 mg Tablet PO (18:32)
[2024-05-21] MEDS: acetaminophen 500 mg Tablet PO (19:54)
[2024-05-21] MEDS: HYDROmorphone 0.5 MG/0.5 ML INJ IVP (22:26)
[2024-05-22] VITALS (7 sets, daily range): BP systolic 145–182; BP diastolic 68–83; PULSE 60–73; RESP 16–18; TEMP 36.6–36.9; O2SAT 90–95
[2024-05-22] MEDS: sodium chloride 0.9% 1,000 ML 75 ML IV (03:45)
[2024-05-22 05:52] LABS: Basophils # 0.1 10^3/uL (0.0-0.1); Basophils % 0.9 %; Eosinophils # 0.3 10^3/uL (0.0-0.8); Eosinophils % 3.7 %; Hematocrit 29.6 % (36-47); Lymphocytes % 25.3 %; Mean Corpuscular HGB Conc 32.1 g/dL (30-55); Mean Corpuscular Hemoglobin 30.4 pg (27-33); Mean Corpuscular Volume 94.6 fl (85-98); Mean Platelet Volume 10.2 fL (7.4-10.4); Monocytes # 0.5 10^3/uL (0.2-0.9); Monocytes % 6.6 %; Neutrophils % 63.2 %; Nucleated Red Blood Cells % 0 %; Platelet Count 305 10^3/cmm (157-399); Red Blood Count 3.13 10^6/uL (3.85-5.65); Red Cell Distribution Width 14.6 % (12.1-15.1); White Blood Count 7.75 10^3/uL (3.29-11.43)
[2024-05-22 06:05] LABS: Anion Gap 10.3 (5-19); Blood Urea Nitrogen 22 mg/dL (8-23); Calcium 8.4 mg/dL (8.5-10.5); Carbon Dioxide 25 mmol/L (22-29); Chloride 109 mmol/L (98-107); Creatinine Clr Calc Pharmacy 26.9034; Glucose 73 mg/dL (65-115); Magnesium 2.4 mg/dL (1.7-2.3); Osmolality Calculated 294 mOsm/kg (285-295); Potassium 3.3 mmol/L (3.5-5.1); Sodium 141 mmol/L (136-145)
[2024-05-22] MEDS: sennosides-docusate Tablet 1 TAB PO ×2 (08:42→17:39)
[2024-05-22] MEDS: acetaminophen 500 mg Tablet PO ×2 (08:43→13:49)
[2024-05-22] MEDS: amlodipine 10 mg Tablet PO (08:43)
[2024-05-22] MEDS: azithromycin 250 mg Tablet 500 MG PO (08:44)
[2024-05-22] MEDS: heparin 5,000 unit/mL INJ 1 mL 5000 UNIT SUBCUT ×2 (08:45→19:59)
--- NOTE | 2024-05-22 09:14 | PC.SOCIAL ---
IMM Update Pg. 2 of IMM updated; copy provided at bedside.
[2024-05-22] MEDS: potassium chloride ER 20 mEq Tablet 40 MEQ PO (10:04)
[2024-05-22] MEDS: cefTRIAXone 1,000 mg SDV 1000 MG IVP (12:22)
--- NOTE | 2024-05-22 13:09 | P.PN_ITS ---
Subjective 2 Subjective: mental status improved pt has concerns regarding being able to walk independently she is ao x2/3. Vitals/I&O/Wt Last Vital Signs Temp 97.8 F 05/22/24 11:00 Pulse 73 05/22/24 11:00 Resp 17 05/22/24 11:00 BP 151/76 05/22/24 11:00 Pulse Ox 90 05/22/24 11:00 O2 Del Method Room Air 05/22/24 11:00 05/21/24 05/22/24 05/22/24 22:59 06:59 14:59 Intake Total 1120 / 2238 360 / 360 Output Total 600 / 600 430 / 430 Balance 520 / 1638 -70 / -70 Weight last 48 hrs Weight 42.638 kg Weight 42.723 kg Weight 42.723 kg Weight 42.728 kg Physical Exam 2 Narrative: AO x2/3. Moves all 4 extremities, neuroexam nonfocal Abdomen soft nontender Lungs clear to auscultation bilaterally. S1, S2 No audible thyroid wheezing Currently on room air Laying supine Urinary Catheter Management: Uribe: Cath Placed During This Visit: yes Reason for Continuing Indwelling Catheter: Not indwelling catheter Urinary Catheter Date of Insertion: 05/20/24 Urinary Catheter Time of Insertion: 18:20 Data 05/22/24 04:53 05/22/24 04:53 Micro: Microbiology 05/21/24 10:27 Blood Culture - Preliminary Blood NEGATIVE TO DATE 05/21/24 10:25 Blood Culture - Preliminary Blood NEGATIVE TO DATE A&P Assessment and plan (1) Altered mental status: Qualifiers: Altered mental status type: unspecified Qualified Code(s): R41.82 - Altered mental status, unspecified (2) Mild cognitive impairment with memory loss: (3) Pneumonia: Qualifiers: Laterality: left Lung location: lower lobe of lung Pneumonia type: due to unspecified organism Qualified Code(s): J18.9 - Pneumonia, unspecified organism (4) Constipation: (5) Dehydration: (6) CHAO (acute kidney injury): Plan Delirium with underlying dementia Metabolic encephalopathy Multifactorial: Likely related to poor p.o. intake, dehydration and constipation Patient is not wanting to eat, I have asked nurse to give her some cranberry juice mixed with lactulose She has severe constipation, will give her enema, lactulose and mag citrate Uribe catheter in place Will start IV fluid hydration Do not appreciate any focal deficits No sign of stroke at all, she is afebrile Monitor B12 TSH CHAO: Anticipate improvement with IV fluid hydration, Uribe catheter was placed No sign of hydronephrosis Concern for left lower lobe infiltrate Procalcitonin is not high, she is not requiring oxygen, moderate leukocytosis She has received ceftriaxone and azithromycin I would like to monitor her off antibiotics for next 24 hours Cardiomegaly with pericardial fusion: Hemodynamically stable: Will request echo Full code Request records from shelter Cardiac diet Abnormal BNP with clinically patient extremely dry: Request D-dimer UA showing alkaline pH with proteinuria Serum ketones negative: Respiratory panel negative 05/21/2024 Patient had a large bowel movement this morning. Continue IV fluids. CHAO improving. Will continue ceftriaxone, azithromycin. Creatinine 1.8 this morning. Check urine culture, sputum culture, blood cultures 05/22/2024 stop IV fluids Chao improved continue ceftriaxone azithro check PT/OT cultures so far neg to date will call family today PDMP PDMP Reviewed: Not Reviewed Attestations 2 Medical Necessity Statement*: safe discharge planning Diagnoses Altered mental status R41.82 Altered mental status type: unspecified Mild cognitive impairment with memory loss G31.84 Pneumonia J18.9 Laterality: left Lung location: lower lobe of lung Pneumonia type: due to unspecified organism Constipation K59.00 Dehydration E86.0 CHAO (acute kidney injury) N17.9
--- NOTE | 2024-05-22 14:00 | PC.NURSE ---
Bridget from [facility] called an stated that they would start Authorization for patient to come and that the patient could come on Saturday but not Saturday.
[2024-05-22] MEDS: aspirin 325 mg Tablet PO (17:39)
[2024-05-22] MEDS: donepezil 5 MG Tablet PO (17:39)
[2024-05-23 04:00] VITALS: BP 178/77; PULSE 77; RESP 19; TEMP 36.5; O2SAT 92
[2024-05-23 05:26] LABS: C.Diff PCR (Lab) NEGATIVE (Negative)
[2024-05-23 08:00] VITALS: BP 181/78; PULSE 72; RESP 16; TEMP 36.8; O2SAT 90
[2024-05-23] MEDS: azithromycin 250 mg Tablet 500 MG PO (09:22)
[2024-05-23] MEDS: amlodipine 10 mg Tablet PO (09:22)
[2024-05-23] MEDS: heparin 5,000 unit/mL INJ 1 mL 5000 UNIT SUBCUT (09:23)
[2024-05-23 10:12] LABS: Basophils # 0.1 10^3/uL (0.0-0.1); Basophils % 0.7 %; Eosinophils # 0.2 10^3/uL (0.0-0.8); Eosinophils % 3.4 %; Hematocrit 31.6 % (36-47); Lymphocytes # 1.4 10^3/uL (0.8-4.8); Lymphocytes % 20.9 %; Mean Corpuscular Hemoglobin 30.9 pg (27-33); Mean Corpuscular Volume 99.7 fl (85-98); Mean Platelet Volume 10.1 fL (7.4-10.4); Monocytes # 0.3 10^3/uL (0.2-0.9); Monocytes % 4.6 %; Neutrophils % 70.1 %; Nucleated Red Blood Cells % 0 %; Platelet Count 267 10^3/cmm (157-399); Red Blood Count 3.17 10^6/uL (3.85-5.65); Red Cell Distribution Width 14.6 % (12.1-15.1); White Blood Count 6.71 10^3/uL (3.29-11.43)
[2024-05-23 10:32] LABS: Anion Gap 14.2 (5-19); Blood Urea Nitrogen 21 mg/dL (8-23); Calcium 8.7 mg/dL (8.5-10.5); Carbon Dioxide 20 mmol/L (22-29); Chloride 109 mmol/L (98-107); Creatinine Clr Calc Pharmacy 27.6915; Glucose 99 mg/dL (65-115); Osmolality Calculated 291 mOsm/kg (285-295); Potassium 4.2 mmol/L (3.5-5.1); Sodium 139 mmol/L (136-145)
[2024-05-23 11:08] VITALS: PULSE 78; RESP 18; O2SAT 95
[2024-05-23 11:56] VITALS: BP 189/85; PULSE 78; RESP 16; TEMP 36.7; O2SAT 95
--- NOTE | 2024-05-23 13:45 | P.PN_ITS ---
Subjective 2 Subjective: Patient seen this morning. Patient has been having diarrhea. C. difficile negative. She was on stool softeners which have been held at this point. Initially patient presented with constipation. He states she feels well today. Vitals/I&O/Wt Last Vital Signs Temp 98.0 F 05/23/24 11:56 Pulse 78 05/23/24 11:56 Resp 16 05/23/24 11:56 BP 189/85 05/23/24 11:56 Pulse Ox 95 05/23/24 11:56 O2 Del Method Room Air 05/23/24 11:56 05/22/24 05/23/24 05/23/24 22:59 06:59 14:59 Intake Total 240 / 240 Output Total 700 / 1130 Balance -700 / -20 240 / 240 Weight last 48 hrs Weight 46.176 kg Weight 42.638 kg Physical Exam 2 Narrative: AO x2/3. Moves all 4 extremities, neuroexam nonfocal Abdomen soft nontender Lungs clear to auscultation bilaterally. S1, S2 No audible thyroid wheezing Currently on room air Laying supine Urinary Catheter Management: Uribe: Cath Placed During This Visit: yes Reason for Continuing Indwelling Catheter: Acute Urinary Retention or Obstruction Urinary Catheter Date of Insertion: 05/20/24 Urinary Catheter Time of Insertion: 18:20 Data 05/23/24 09:55 05/23/24 09:55 Micro: Microbiology 05/22/24 11:35 Urine Culture - Preliminary Urine,Clean Catch 05/21/24 10:27 Blood Culture - Preliminary Blood NEGATIVE TO DATE 05/21/24 10:25 Blood Culture - Preliminary Blood NEGATIVE TO DATE A&P Assessment and plan (1) Altered mental status: Qualifiers: Altered mental status type: unspecified Qualified Code(s): R41.82 - Altered mental status, unspecified (2) Mild cognitive impairment with memory loss: (3) Pneumonia: Qualifiers: Laterality: left Lung location: lower lobe of lung Pneumonia type: due to unspecified organism Qualified Code(s): J18.9 - Pneumonia, unspecified organism (4) Constipation: (5) Dehydration: (6) CHAO (acute kidney injury): Plan Delirium with underlying dementia Metabolic encephalopathy Multifactorial: Likely related to poor p.o. intake, dehydration and constipation Patient is not wanting to eat, I have asked nurse to give her some cranberry juice mixed with lactulose She has severe constipation, will give her enema, lactulose and mag citrate Uribe catheter in place Will start IV fluid hydration Do not appreciate any focal deficits No sign of stroke at all, she is afebrile Monitor B12 TSH CHAO: Anticipate improvement with IV fluid hydration, Uribe catheter was placed No sign of hydronephrosis Concern for left lower lobe infiltrate Procalcitonin is not high, she is not requiring oxygen, moderate leukocytosis She has received ceftriaxone and azithromycin I would like to monitor her off antibiotics for next 24 hours Cardiomegaly with pericardial fusion: Hemodynamically stable: Will request echo Full code Request records from skilled nursing Cardiac diet Abnormal BNP with clinically patient extremely dry: Request D-dimer UA showing alkaline pH with proteinuria Serum ketones negative: Respiratory panel negative 05/21/2024 Patient had a large bowel movement this morning. Continue IV fluids. CHAO improving. Will continue ceftriaxone, azithromycin. Creatinine 1.8 this morning. Check urine culture, sputum culture, blood cultures 05/22/2024 stop IV fluids Chao improved continue ceftriaxone azithro check PT/OT cultures so far neg to date will call family today 05/23/2024 IV fluids were stopped yesterday. CHAO improved. Continue ceftriaxone azithromycin. Cultures negative to date Patient experiencing diarrhea mostly secondary to stool softener use. Stop Doc senna going forward. Abdomen soft nontender. Possible component of antibiotics as well. Patient appears to be doing well otherwise. Tentative plan to discharge to nursing facility in AM. Patient is awaiting insurance authorization. PDMP PDMP Reviewed: Not Reviewed Attestations 2 Medical Necessity Statement*: safe discharge planning Diagnoses Altered mental status R41.82 Altered mental status type: unspecified Mild cognitive impairment with memory loss G31.84 Pneumonia J18.9 Laterality: left Lung location: lower lobe of lung Pneumonia type: due to unspecified organism Constipation K59.00 Dehydration E86.0 CHAO (acute kidney injury) N17.9
[2024-05-23] MEDS: cefTRIAXone 1,000 mg SDV 1000 MG IVP (14:38)
[2024-05-23 16:00] VITALS: BP 119/68; PULSE 79; RESP 14; TEMP 36.8; O2SAT 98
[2024-05-23] MEDS: donepezil 5 MG Tablet PO (17:03)
[2024-05-23] MEDS: aspirin 325 mg Tablet PO (17:03)
[2024-05-23 20:00] VITALS: BP 182/77; PULSE 66; RESP 19; TEMP 36.5
[2024-05-23] MEDS: water for injection-sterile 10 ML 2.1 ML (21:15)
[2024-05-23] MEDS: OLANZapine 10 mg VIAL IM (21:15)
--- NOTE | 2024-05-23 21:16 | PC.NURSE ---
Patient was having increased agitation and confusion. Patient was constantly getting up out of bed and is unsteady on their feet. WHen nursing staff tried redirected, the patient became belligerant and punching/kicking nursing staff. The patient kicked the BUSINESS DEVELOPMENT DIRECTOR and punch the nurse. Dr. Stringer was contacted and received verbal orders to give Zyprexa 10mg IM once now. Patient was given the IM Zyprexa in the left ventrualgluteal at 2114. Will continue to monitor
[2024-05-24] VITALS (7 sets, daily range): BP systolic 142–180; BP diastolic 65–77; PULSE 67–86; RESP 14–18; TEMP 36.4–36.8; O2SAT 90–98
--- NOTE | 2024-05-24 02:33 | PC.NURSE ---
Patient woke up around [id number] trying to get up out of the bed. The patient swore that they was at home with their and would not believe the nursing staff that they was in [facility] in [facility]. The patient kept needing redirected multiple times by RECREATION THERAPY DIRECTOR, nurse in charge of the patient and other nurses when the patients bed alarm keeps going off. The patient has increased confusion from their dementia stating that there are snakes on the ceiling, dogs running around the room, silver spoons all over the floor and wanting to get up and take care of them. Charge nurse was informed of the amount of time the patient tried ambulating on their own with their balance being impaired and needing constant redirecting. Charge nurse notified the house wirer and a staff member was pulled to sit one on one with the patient while the floor nurse was still in charge of patient. No complications since the one on one sitter has been in the room. Will continue to monitor
[2024-05-24] MEDS: acetaminophen 500 mg Tablet PO (02:52)
[2024-05-24] MEDS: OLANZapine 10 mg VIAL IM (03:39)
[2024-05-24] MEDS: water for injection-sterile 10 ML 2.1 ML (03:40)
--- NOTE | 2024-05-24 03:41 | PC.NURSE ---
Floor nurse was checking on their patients when they saw the patient having their feet trying to push the bedside table out of the way. The sitter was next to the patient trying to redirect and the patient started fighting against the sitter and kicked the sitter in the chest. Floor nurse ran into the room to help redirect the patient and the patient tried to swing at the nurse but was unsuccessful and was redirected back into the bed. The sitter did not have any injuries and Dr. Stringer was notified. New orders to give Zyprexa IM 10mg once. Zyprexa was administered to the patient in the right ventrogluteal. Patient was repositioned in the bed and offered fluids. Will continue to monitor the patient.
[2024-05-24 05:52] LABS: Basophils # 0.1 10^3/uL (0.0-0.1); Basophils % 0.9 %; Eosinophils # 0.4 10^3/uL (0.0-0.8); Hematocrit 31.1 % (36-47); Lymphocytes # 1.8 10^3/uL (0.8-4.8); Lymphocytes % 25.6 %; Mean Corpuscular HGB Conc 32.8 g/dL (30-55); Mean Corpuscular Hemoglobin 31.3 pg (27-33); Mean Corpuscular Volume 95.4 fl (85-98); Mean Platelet Volume 10.1 fL (7.4-10.4); Monocytes # 0.4 10^3/uL (0.2-0.9); Monocytes % 5.7 %; Neutrophils # 4.24 10^3/uL (1.8-7.7); Neutrophils % 61.5 %; Nucleated Red Blood Cells % 0 %; Platelet Count 303 10^3/cmm (157-399); Red Blood Count 3.26 10^6/uL (3.85-5.65); Red Cell Distribution Width 14.6 % (12.1-15.1); White Blood Count 6.88 10^3/uL (3.29-11.43)
[2024-05-24 06:09] LABS: Anion Gap 13.5 (5-19); Blood Urea Nitrogen 20 mg/dL (8-23); Carbon Dioxide 22 mmol/L (22-29); Chloride 109 mmol/L (98-107); Creatinine Clr Calc Pharmacy 27.7744; Glucose 67 mg/dL (65-115); Magnesium 2.3 mg/dL (1.7-2.3); Osmolality Calculated 293 mOsm/kg (285-295); Potassium 3.5 mmol/L (3.5-5.1); Sodium 141 mmol/L (136-145)
[2024-05-24] MEDS: azithromycin 250 mg Tablet 500 MG PO (08:47)
[2024-05-24] MEDS: amlodipine 10 mg Tablet PO (08:48)
[2024-05-24] MEDS: heparin 5,000 unit/mL INJ 1 mL 5000 UNIT SUBCUT ×2 (08:48→20:26)
[2024-05-24] MEDS: cefTRIAXone 1,000 mg SDV 1000 MG IVP (12:21)
[2024-05-24] MEDS: hyDRALAzine 10 mg Tablet PO ×2 (14:45→20:26)
--- NOTE | 2024-05-24 14:57 | P.PN_ITS ---
Subjective 2 Subjective: Seen this morning. Resting in bed. Appears confused. Overnight patient had a rough night. She was combative and belligerent with nursing staff. Had to get Zyprexa x 2. Updated her son over the phone regarding overnight events. Patient probably has delirium which is hospital-acquired. At this time she would like to rest and is sleeping. Denies any pain shortness of breath or diarrhea at this time. Laying in bed. Vitals/I&O/Wt Last Vital Signs Temp 97.6 F 05/24/24 12:00 Pulse 76 05/24/24 12:00 Resp 16 05/24/24 12:00 BP 142/65 05/24/24 12:00 Pulse Ox 96 05/24/24 12:00 O2 Del Method Room Air 05/24/24 12:00 05/23/24 05/24/24 05/24/24 22:59 06:59 14:59 Intake Total 130 / 370 10 / 380 120 / 120 Balance 130 / 370 10 / 380 120 / 120 Weight last 48 hrs Weight 46.539 kg Weight 46.176 kg Physical Exam 2 Narrative: AO x1 Moves all 4 extremities, neuroexam nonfocal Abdomen soft nontender Lungs clear to auscultation bilaterally. S1, S2 No audible thyroid wheezing Currently on room air Laying supine Urinary Catheter Management: Uribe: Cath Placed During This Visit: yes Reason for Continuing Indwelling Catheter: Acute Urinary Retention or Obstruction Urinary Catheter Date of Insertion: 05/20/24 Urinary Catheter Time of Insertion: 18:20 Data 05/24/24 05:22 05/24/24 05:22 Micro: Microbiology 05/22/24 18:05 Gram Stain - Final Sputum - Expectorated Sputum Sputum Culture - Preliminary 05/22/24 11:35 Urine Culture - Final Urine,Clean Catch A&P Assessment and plan (1) Altered mental status: Qualifiers: Altered mental status type: unspecified Qualified Code(s): R41.82 - Altered mental status, unspecified (2) Mild cognitive impairment with memory loss: (3) Pneumonia: Qualifiers: Laterality: left Lung location: lower lobe of lung Pneumonia type: due to unspecified organism Qualified Code(s): J18.9 - Pneumonia, unspecified organism (4) Constipation: (5) Dehydration: (6) CHAO (acute kidney injury): Plan Delirium with underlying dementia Metabolic encephalopathy Multifactorial: Likely related to poor p.o. intake, dehydration and constipation Patient is not wanting to eat, I have asked nurse to give her some cranberry juice mixed with lactulose She has severe constipation, will give her enema, lactulose and mag citrate Uribe catheter in place Will start IV fluid hydration Do not appreciate any focal deficits No sign of stroke at all, she is afebrile Monitor B12 TSH CHAO: Anticipate improvement with IV fluid hydration, Uribe catheter was placed No sign of hydronephrosis Concern for left lower lobe infiltrate Procalcitonin is not high, she is not requiring oxygen, moderate leukocytosis She has received ceftriaxone and azithromycin I would like to monitor her off antibiotics for next 24 hours Cardiomegaly with pericardial fusion: Hemodynamically stable: Will request echo Full code Request records from custodial Cardiac diet Abnormal BNP with clinically patient extremely dry: Request D-dimer UA showing alkaline pH with proteinuria Serum ketones negative: Respiratory panel negative 05/21/2024 Patient had a large bowel movement this morning. Continue IV fluids. CHAO improving. Will continue ceftriaxone, azithromycin. Creatinine 1.8 this morning. Check urine culture, sputum culture, blood cultures 05/22/2024 stop IV fluids Chao improved continue ceftriaxone azithro check PT/OT cultures so far neg to date will call family today 05/23/2024 IV fluids were stopped yesterday. CHAO improved. Continue ceftriaxone azithromycin. Cultures negative to date Patient experiencing diarrhea mostly secondary to stool softener use. Stop Doc senna going forward. Abdomen soft nontender. Possible component of antibiotics as well. Patient appears to be doing well otherwise. Tentative plan to discharge to nursing facility in AM. Patient is awaiting insurance authorization. 05/24/2024 Continue ceftriaxone azithromycin x 7 days total. Diarrhea is improved. Hospital-acquired delirium with underlying dementia. Zyprexa 10 IM x 2 given overnight. Start Seroquel 12.5 daily at nighttime. PDMP PDMP Reviewed: Not Reviewed Attestations 2 Medical Necessity Statement*: Patient requiring a sitter at this time and has delirium. Continue to monitor in the hospital. If mental status improved by tomorrow we will consider discharge to nursing facility. Diagnoses Altered mental status R41.82 Altered mental status type: unspecified Mild cognitive impairment with memory loss G31.84 Pneumonia J18.9 Laterality: left Lung location: lower lobe of lung Pneumonia type: due to unspecified organism Constipation K59.00 Dehydration E86.0 CHAO (acute kidney injury) N17.9
[2024-05-24] MEDS: aspirin 325 mg Tablet PO (17:14)
[2024-05-24] MEDS: donepezil 5 MG Tablet PO (17:14)
[2024-05-24] MEDS: quetiapine 25 mg Tablet 12.5 MG PO (20:26)
[2024-05-25 00:33] VITALS: BP 130/72; PULSE 60; RESP 16; O2SAT 95
[2024-05-25 03:53] LABS: Basophils # 0.1 10^3/uL (0.0-0.1); Basophils % 1.2 %; Eosinophils # 0.6 10^3/uL (0.0-0.8); Hematocrit 30.6 % (36-47); Lymphocytes # 1.8 10^3/uL (0.8-4.8); Lymphocytes % 32.6 %; Mean Corpuscular HGB Conc 31.7 g/dL (30-55); Mean Corpuscular Hemoglobin 30.6 pg (27-33); Mean Corpuscular Volume 96.5 fl (85-98); Mean Platelet Volume 10.9 fL (7.4-10.4); Monocytes # 0.4 10^3/uL (0.2-0.9); Monocytes % 6.9 %; Neutrophils # 2.76 10^3/uL (1.8-7.7); Neutrophils % 49.1 %; Nucleated Red Blood Cells % 0 %; Platelet Count 285 10^3/cmm (157-399); Red Blood Count 3.17 10^6/uL (3.85-5.65); Red Cell Distribution Width 14.7 % (12.1-15.1); White Blood Count 5.62 10^3/uL (3.29-11.43)
[2024-05-25 04:20] VITALS: BP 174/72; PULSE 54; RESP 14; TEMP 36.3; O2SAT 92
[2024-05-25 04:29] LABS: Blood Urea Nitrogen 19 mg/dL (8-23); Calcium 8.8 mg/dL (8.5-10.5); Carbon Dioxide 22 mmol/L (22-29); Chloride 114 mmol/L (98-107); Creatinine Clr Calc Pharmacy 27.7744; Glucose 61 mg/dL (65-115); Magnesium 2.3 mg/dL (1.7-2.3); Osmolality Calculated 300 mOsm/kg (285-295); Sodium 145 mmol/L (136-145)
[2024-05-25 04:47] LABS: Anion Gap 12.6 (5-19); Potassium 3.6 mmol/L (3.5-5.1)
[2024-05-25 08:59] VITALS: BP 174/65; PULSE 61; RESP 18; TEMP 36.6; O2SAT 93
[2024-05-25] MEDS: hyDRALAzine 10 mg Tablet PO (09:33)
[2024-05-25] MEDS: amlodipine 10 mg Tablet PO (09:33)
[2024-05-25] MEDS: azithromycin 250 mg Tablet 500 MG PO (09:33)
[2024-05-25 09:55] VITALS: PULSE 91; RESP 18; O2SAT 92
--- NOTE | 2024-05-25 09:55 | P.DS_ITS ---
Discharge Providers Date of Admission: 05/20/24 19:59 Date of Discharge: May 25, 2024 Attending Provider at Admission: Ambrocio Stringer MD Attending Provider at Discharge: Jordyn Parisi MD Primary Care Provider: Mike Day Diagnoses at Discharge Discharge Diagnosis (1) Altered mental status: Status: Acute Qualifiers: Altered mental status type: unspecified Qualified Code(s): R41.82 - Altered mental status, unspecified (2) Mild cognitive impairment with memory loss: Status: Acute (3) Pneumonia: Status: Acute Qualifiers: Laterality: left Lung location: lower lobe of lung Pneumonia type: due to unspecified organism Qualified Code(s): J18.9 - Pneumonia, unspecified organism (4) Constipation: Status: Acute (5) Dehydration: Status: Acute (6) FIDEL (acute kidney injury): Status: Acute Reason for Visit Reason for Visit: AMS Hospital Course Hospital Course Patient presented to the hospital with metabolic encephalopathy most likely secondary to poor oral intake dehydration constipation. She also had FIDEL which improved. She was concern for left lower lobe infiltrate and she was placed on ceftriaxone azithromycin. She also had hallucinations and was delirious at nighttime in the hospital. She was started on Seroquel. 1 night she also required Zyprexa. At this time she is back to her baseline. Diarrhea also improved. She was constipated on admission and was given stool softeners which in turn caused her to have large bowel movements and eventually diarrhea. Stool softeners were now stopped. She is doing well from clinical standpoint and back to her baseline. Updated her son over the phone. She will go back to residential today. Physical Exam Narrative: AO x2/3 Moves all 4 extremities, neuroexam nonfocal Abdomen soft nontender Lungs clear to auscultation bilaterally. S1, S2 No audible thyroid wheezing Currently on room air Laying supine Urinary Catheter Management: Uribe: Cath Placed During This Visit: yes Reason for Continuing Indwelling Catheter: Acute Urinary Retention or Obstruction Urinary Catheter Date of Insertion: 05/20/24 Urinary Catheter Time of Insertion: 18:20 Discharge Data Studies Completed and Pending Completed Studies During Hospitalization Category Date Time Status CT abdomen pelvis wo con [id number] Stat Cat Scan 05/20/24 16:13 Completed XR chest 1V portable [id number] Stat Exams 05/20/24 16:13 Completed CV. echo complete* [id number] Routine Ultrasound 05/21/24 07:00 Completed Pending at discharge Category Date Time Status Blood Culture Stat Lab 05/21/24 10:25 Results Sputum Culture and Gram Stain Stat Lab 05/22/24 18:05 Results Radiology Impressions Abdomen/Pelvis CT 05/20/24 16:13 IMPRESSION: 1. Significantly limited evaluation due to lack of intravenous contrast and significant motion as well as streak artifacts. 2. Severe colonic and rectal stool burden, which may be seen with constipation and/or rectal impaction. 3. Multiple hypodense bilateral renal lesions and hyperdense left renal lesion. These are incompletely characterized. Further evaluation with dedicated ultrasound study is recommended. 4. Cardiomegaly with pericardial effusion. 5. Consolidative opacity within left lower lobe, which may represent atelectasis , however superimposed infection is not excluded. Chest X-Ray 05/20/24 16:13 IMPRESSION: 1. Mildly asymmetric streaky opacities within right lung base, likely represent atelectasis. Superimposed infection is not excluded. 2. Other chronic findings as above. Laboratory Results WBC 5.62 10^3/uL (3.29-11.43) 05/25/24 02:48 Corrected WBC Cancelled 05/20/24 16:28 RBC 3.17 10^6/uL (3.85-5.65) L 05/25/24 02:48 Hgb 9.70 g/dL (11.27-16.99) L 05/25/24 02:48 Hct 30.6 % (36-47) L 05/25/24 02:48 MCV 96.5 fl (85-98) 05/25/24 02:48 MCH 30.6 pg (27-33) 05/25/24 02:48 MCHC 31.7 g/dL (30-55) 05/25/24 02:48 RDW 14.7 % (12.1-15.1) 05/25/24 02:48 Plt Count 285 10^3/cmm (157-399) 05/25/24 02:48 MPV 10.9 fL (7.4-10.4) H 05/25/24 02:48 Gran % Cancelled 05/20/24 16:28 Neut % (Auto) 49.1 % 05/25/24 02:48 Lymph % (Auto) 32.6 % 05/25/24 02:48 [place] % (Auto) 6.9 % 05/25/24 02:48 Eos % (Auto) 10.0 % 05/25/24 02:48 Baso % (Auto) 1.2 % 05/25/24 02:48 Neut # (Auto) 2.76 10^3/uL (1.8-7.7) 05/25/24 02:48 Lymph # (Auto) 1.8 10^3/uL (0.8-4.8) 05/25/24 02:48 [place] # (Auto) 0.4 10^3/uL (0.2-0.9) 05/25/24 02:48 Eos # (Auto) 0.6 10^3/uL (0.0-0.8) 05/25/24 02:48 Baso # (Auto) 0.1 10^3/uL (0.0-0.1) 05/25/24 02:48 Absolute Gran (auto) Cancelled 05/20/24 16:28 Nucleated RBC % (auto) 0 % 05/25/24 02:48 Nucleated RBCs # 0.0 /100WBC 05/25/24 02:48 Specimen Type Arterial 05/20/24 16:40 Sample Site Radial, right 05/20/24 16:40 ABG pH 7.46 (7.35-7.45) H 05/20/24 16:40 ABG pCO2 36.6 mmHg (35-45) 05/20/24 16:40 ABG pO2 59.7 mmHg (80.0-100.0) L 05/20/24 16:40 ABG HCO3 26.0 mmol/L (22-26) 05/20/24 16:40 ABG O2 Saturation 90.5 05/20/24 16:40 ABG Base Excess 2.2 mmol/L (-2.0-2.0) H 05/20/24 16:40 Angel Test Pos 05/20/24 16:40 A-a O2 Gradient 5.5 mmHg (5-10) 05/20/24 16:40 Hematocrit 33.9 % (37-47) L 05/20/24 16:40 Hgb O2 Saturation 88.2 % (95-100) L 05/20/24 16:40 Carboxyhemoglobin 1.4 %THgb (0.4-20.1) 05/20/24 16:40 Methemoglobin 1.2 % (0.4-1.5) 05/20/24 16:40 Total Hemoglobin 11.0 g/dL (12-16) L 05/20/24 16:40 Sodium 138.0 mmol/L (131-143) 05/20/24 16:40 Potassium 3.5 mmol/L (3.5-5.0) 05/20/24 16:40 Glucose 113.0 mg/dL (70-115) 05/20/24 16:40 Ionized Calcium 1.3 mmol/L (1.1-1.4) 05/20/24 16:40 O2 Delivery Device Room air 05/20/24 16:40 Wood Router Hand ID Broma 05/20/24 16:40 Sodium 145 mmol/L (136-145) 05/25/24 02:48 Potassium 3.6 mmol/L (3.5-5.1) 05/25/24 02:48 Chloride 114 mmol/L (98-107) H 05/25/24 02:48 Carbon Dioxide 22 mmol/L (22-29) 05/25/24 02:48 Anion Gap 12.6 (5-19) 05/25/24 02:48 BUN 19 mg/dL (8-23) 05/25/24 02:48 Creatinine 1.2 mg/dL (0.5-0.9) H 05/25/24 02:48 GFR Calculation Not Reportable 05/25/24 02:48 Glucose 61 mg/dL (65-115) L 05/25/24 02:48 Calculated Osmolality 300 mOsm/kg (285-295) H 05/25/24 02:48 Calcium 8.8 mg/dL (8.5-10.5) 05/25/24 02:48 Phosphorus 4.1 mg/dL (2.5-4.5) 05/21/24 05:40 Magnesium 2.3 mg/dL (1.7-2.3) 05/25/24 02:48 Total Bilirubin 0.7 mg/dL (0.15-1.2) 05/20/24 16:28 AST 24 U/L (0-32) 05/20/24 16:28 ALT 13 U/L (0-33) 05/20/24 16:28 Alkaline Phosphatase 81 U/L (35-105) 05/20/24 16:28 Creatine Kinase 133 U/L (26-192) 05/20/24 16:28 Troponin T Baseline 40 ng/L (0-10) H 05/20/24 16:28 Troponin T 120 Minute 34.02 ng/L (0-10) H 05/20/24 18:15 Delta Troponin T -5.98 ABS# (0-10) L 05/20/24 18:15 Troponin T Hi Sens 6Hr 51.19 ng/L (0-10) H 05/20/24 22:18 Troponin T Hi Sens 6Hr Delta 11.19 ng/L (0-12) 05/20/24 22:18 C-Reactive Protein 6.3 mg/L (0.0-4.9) H 05/21/24 05:40 NT-Pro-B Natriuret Pep 02519 pg/mL (0-450) H 05/20/24 16:28 Total Protein 5.8 g/dL (6.6-8.7) L 05/20/24 16:28 Albumin 3.1 g/dL (3.5-5.2) L 05/20/24 16:28 Globulin 2.7 g/dL (1.3-4.6) 05/20/24 16:28 Lipase 58 U/L (13-60) 05/20/24 16:28 Vitamin B12 387 pg/mL (232-1245) 05/20/24 16:28 Procalcitonin 0.08 ng/mL (0-0.5) 05/20/24 16:28 TSH 1.56 uIU/mL (0.27-4.20) 05/20/24 16:28 Serum Ketones Negative (Negative) 05/20/24 18:15 C. difficile (PCR) Negative (Negative) 05/23/24 04:25 Vitals Last Vital Signs Temp 97.9 F 05/25/24 08:59 Pulse 61 05/25/24 08:59 Resp 18 05/25/24 08:59 BP 174/65 05/25/24 08:59 Pulse Ox 93 05/25/24 08:59 O2 Del Method Room Air 05/25/24 08:59 Discharge Plan Discharge Patient Disposition: Xfer SNF Condition: Stable Prescriptions: New quetiapine 25 mg Tablet 12.5 mg PO BEDTIME Qty: 30 0RF hydralazine 25 mg tablet 25 mg PO TID Qty: 90 0RF azithromycin 250 mg Tablet 500 mg PO DAILY Qty: 2 0RF cefdinir 300 mg capsule 300 mg PO BID Qty: 4 0RF potassium chloride 10 mEq capsule, extended release 10 meq PO DAILY Qty: 30 0RF Continued multivitamin Tablet 1 tab PO DAILY donepezil 5 mg tablet 5 mg PO QPM aspirin 325 mg Tablet 325 mg PO QPM cetirizine 5 mg Tablet 5 mg PO DAILY sennosides-docusate sodium 8.6-50 mg Tablet 1 tab-cap PO BID magnesium hydroxide [Milk of Magnesia] 400 mg/5 mL Suspension 30 ml PO DAILY PRN (Reason: Constipation) bisacodyl [Dulcolax (bisacodyl)] 10 mg Suppository 10 mg [place] DAILY PRN (Reason: Constipation) pantoprazole 40 mg tablet,delayed release (DR/EC) 40 mg PO DAILY bisacodyl [Dulcolax (bisacodyl)] 5 mg Tablet,Delayed Release (Dr/Ec) 10 mg PO DAILY PRN (Reason: Constipation) polyethylene glycol 3350 17 gram/dose Powder 17 g PO BID mirtazapine 7.5 mg tablet 7.5 mg PO DAILY calcium acetate(phosphat bind) 667 mg capsule 1,334 mg PO TID cholecalciferol (vitamin D3) [Vitamin D3] 10 mcg (400 unit) Tablet,Chewable 10 mcg PO DAILY Benefiber Healthy Shape 5 gram/7.4 gram Powder 3 g PO BID atorvastatin 20 mg tablet 20 mg PO BEDTIME amlodipine 10 mg tablet 10 mg PO DAILY fluticasone propionate 50 mcg/actuation spray,suspension 2 spray INTRANASAL DAILY PRN (Reason: Nasal Congestion) Discontinued potassium chloride 20 mEq tablet,ER particles/crystals 20 meq PO DAILY Discharge Orders: Discharge Order (Routine); Ordered 05/25/24 Ordered By: Jordyn Parisi Other Ambulatory Orders: Basic Metabolic Panel (Routine) Timeframe: 1 Week Facility: [facility] - Location: Lab - Main Lab Ordered By: Jordyn Parisi Referrals: Mike Day [Primary Care Provider] - 4-7 days Discharge Diet: Cardiac Discharge Activity: Resume usual activity Patient Instructions: Potassium Chloride (By mouth) (K-Dur, K-Kristal, K-Tab, Jason Mur), Azithromycin (By mouth) (Zithromax, Zithromax Tri-[place]ron, Zithromax..., Hydralazine (By mouth) (Apresoline), Quetiapine (By mouth) (Seroquel, Seroquel XR, Seroquel XR 14-Day..., Cefdinir (By mouth) (Omnicef), Dehydration (DC), Acute Kidney Injury (DC), Bacterial Pneumonia (DC), Altered Mental Status (ED) Discharge Attestations Time Spent in Discharge Care*: greater than 30 min Quality Metrics Clinical Quality Measures [ No reported AMI, CVA or VTE this stay] Coding Level of Care Code Acute Code for Chg Fwd Diagnoses Altered mental status R41.82 Altered mental status type: unspecified Mild cognitive impairment with memory loss G31.84 Pneumonia J18.9 Laterality: left Lung location: lower lobe of lung Pneumonia type: due to unspecified organism Constipation K59.00 Dehydration E86.0 FIDEL (acute kidney injury) N17.9
[2024-05-25 10:07] LABS: Glucose Point of Care 67 mg/dL (70-110)
[2024-05-25 11:12] LABS: Glucose Point of Care 181 mg/dL (70-110)
[2024-05-25 11:30] VITALS: BP 174/72; PULSE 54; RESP 14; TEMP 36.6; O2SAT 93
--- NOTE | 2024-05-25 11:40 | P.PN_ITS ---
Subjective 2 Subjective: seen today ao x2/3 wants toast with jelly and coffee says she wants to go back where she came from and does not like this alf Vitals/I&O/Wt Last Vital Signs Temp 97.9 F 05/25/24 11:30 Pulse 54 L 05/25/24 11:30 Resp 14 05/25/24 11:30 BP 174/72 05/25/24 11:30 Pulse Ox 93 05/25/24 11:30 O2 Del Method Room Air 05/25/24 09:55 05/24/24 05/25/24 05/25/24 22:59 06:59 14:59 Intake Total 100 / 100 Balance 100 / 100 Weight last 48 hrs Weight 46.584 kg Weight 46.539 kg Physical Exam 2 Narrative: AO x2/3 Moves all 4 extremities, neuroexam nonfocal Abdomen soft nontender Lungs clear to auscultation bilaterally. S1, S2 No audible thyroid wheezing Currently on room air Laying supine Urinary Catheter Management: Uribe: Cath Placed During This Visit: yes Reason for Continuing Indwelling Catheter: Acute Urinary Retention or Obstruction Urinary Catheter Date of Insertion: 05/20/24 Urinary Catheter Time of Insertion: 18:20 Data 05/25/24 02:48 05/25/24 02:48 Micro: Microbiology 05/22/24 18:05 Gram Stain - Final Sputum - Expectorated Sputum Sputum Culture - Final 05/22/24 11:35 Urine Culture - Final Urine,Clean Catch A&P Assessment and plan (1) Altered mental status: Qualifiers: Altered mental status type: unspecified Qualified Code(s): R41.82 - Altered mental status, unspecified (2) Mild cognitive impairment with memory loss: (3) Pneumonia: Qualifiers: Laterality: left Lung location: lower lobe of lung Pneumonia type: due to unspecified organism Qualified Code(s): J18.9 - Pneumonia, unspecified organism (4) Constipation: (5) Dehydration: (6) CHAO (acute kidney injury): Plan Delirium with underlying dementia Metabolic encephalopathy Multifactorial: Likely related to poor p.o. intake, dehydration and constipation Patient is not wanting to eat, I have asked nurse to give her some cranberry juice mixed with lactulose She has severe constipation, will give her enema, lactulose and mag citrate Uribe catheter in place Will start IV fluid hydration Do not appreciate any focal deficits No sign of stroke at all, she is afebrile Monitor B12 TSH CHAO: Anticipate improvement with IV fluid hydration, Uribe catheter was placed No sign of hydronephrosis Concern for left lower lobe infiltrate Procalcitonin is not high, she is not requiring oxygen, moderate leukocytosis She has received ceftriaxone and azithromycin I would like to monitor her off antibiotics for next 24 hours Cardiomegaly with pericardial fusion: Hemodynamically stable: Will request echo Full code Request records from alf Cardiac diet Abnormal BNP with clinically patient extremely dry: Request D-dimer UA showing alkaline pH with proteinuria Serum ketones negative: Respiratory panel negative 05/21/2024 Patient had a large bowel movement this morning. Continue IV fluids. CHAO improving. Will continue ceftriaxone, azithromycin. Creatinine 1.8 this morning. Check urine culture, sputum culture, blood cultures 05/22/2024 stop IV fluids Chao improved continue ceftriaxone azithro check PT/OT cultures so far neg to date will call family today 05/23/2024 IV fluids were stopped yesterday. CHAO improved. Continue ceftriaxone azithromycin. Cultures negative to date Patient experiencing diarrhea mostly secondary to stool softener use. Stop Doc senna going forward. Abdomen soft nontender. Possible component of antibiotics as well. Patient appears to be doing well otherwise. Tentative plan to discharge to nursing facility in AM. Patient is awaiting insurance authorization. 05/24/2024 Continue ceftriaxone azithromycin x 7 days total. Diarrhea is improved. Hospital-acquired delirium with underlying dementia. Zyprexa 10 IM x 2 given overnight. Start Seroquel 12.5 daily at nighttime. 05/25/2024 Continue ceftriaxone azithromycin x 7 days total. Last date may 28 Diarrhea resolved Hospital-acquired delirium with underlying dementia. - Improved, pt is back to baseline Continue Seroquel 12.5 daily at nighttime. Son updated over the phone awaiting insurance authorization for dc to alf. PDMP PDMP Reviewed: Not Reviewed Attestations 2 Medical Necessity Statement*: awaiting insurance authorization Diagnoses Altered mental status R41.82 Altered mental status type: unspecified Mild cognitive impairment with memory loss G31.84 Pneumonia J18.9 Laterality: left Lung location: lower lobe of lung Pneumonia type: due to unspecified organism Constipation K59.00 Dehydration E86.0 CHAO (acute kidney injury) N17.9
[2024-05-25 11:44] VITALS: BP 131/66; PULSE 84; RESP 19; TEMP 36.8; O2SAT 93
[2024-05-25] MEDS: cefTRIAXone 1,000 mg SDV 1000 MG IVP (13:34)
== END 2024-05-25 14:52 | disposition skilled nursing facility (03) ==
LOC: ER 19:56 → MEDSURG 21:53
PROVIDERS: Family Medicine; Admitting Provider Internal Medicine; Emergency Provider Emergency Medicine; PCP Family Medicine; Visit Provider Internal Medicine
DX: G93.41 Metabolic encephalopathy (principal); J18.9 Pneumonia, unspecified organism; K59.00 Constipation, unspecified; E86.0 Dehydration; N17.9 Acute kidney failure, unspecified; Z79.82 Long term (current) use of aspirin; R44.3 Hallucinations, unspecified; R13.10 Dysphagia, unspecified; J44.9 Chronic obstructive pulmonary disease, unspecified; Z86.73 Personal history of transient ischemic attack (TIA), and cerebral infarction without residual deficits; F17.200 Nicotine dependence, unspecified, uncomplicated; Z83.3 Family history of diabetes mellitus; Z82.49 Family history of ischemic heart disease and other diseases of the circulatory system; F05 Delirium due to known physiological condition; F01.50 Vascular dementia, unspecified severity, without behavioral disturbance, psychotic disturbance, mood disturbance, and anxiety; I11.9 Hypertensive heart disease without heart failure
CPT/HCPCS: 36415; 36416; 36600; 51702; 71045; 74176; 80048; 80051; 80053; 82009; 82330; 82550; 82607; 82805; 82962; 83690; 83735; 83880; 84100; 84145; 84443; 84484; 85025; 86140; 87040; 87070; 87086; 87205; 87493; 93005; 93306; 96365; 96372; 96375; 97116; 97161; 99285; G0378; J0456; J0696; J1171; J1644; J3490; J7030; J7050; J9999; Q0144

== ENCOUNTER 2024-09-08 22:29 | Emergency (ER) | payer MEDICARE, SELFPAY ==
[2024-09-08 22:30] VITALS: BP 193/92; PULSE 82; RESP 18; TEMP 36.6; O2SAT 90
--- NOTE | 2024-09-08 22:42 | XRR_ITS ---
PROCEDURE INFORMATION: Exam: XR Left Hip Exam date and time: 09/08/2024 10:57 PM Age: 83 years old Clinical indication: Hip pain; Left hip; Prior surgery; Surgery date: 6+ months; Surgery type: Left femur; Additional info: Fall, pain TECHNIQUE: Imaging protocol: Radiologic exam of the left hip. Views: 2 or 3 views hip with pelvis when performed. COMPARISON: CT abdomen pelvis wo con [id number] 05/20/2024 4:30 PM FINDINGS: Bones/joints: Postsurgical changes of the left femur. The hardware appears intact. Well corticated ossific fragments surrounding the left proximal femur and left hip joint from prior injury. There are old fracture deformities of the left sukh fore pelvis. Moderate degenerative changes of the right hip joint. Sacroiliac joint degenerative changes. Soft tissues: Unremarkable. Gastrointestinal tract: Stool and gas throughout the visualized bowel loops. XR/XR hip LT 2-3V wo/w pel* [id number] IMPRESSION: As above.
--- NOTE | 2024-09-08 22:44 | W.ED.EXTPRO ---
HPI - Extremity Problem General: Chief complaint: Extremity Injury, Lower Stated complaint: LEFT HIP PAIN Time Seen by Provider: 09/08/24 22:31 Source: patient Mode of arrival: EMS Limitations: no limitations History of Present Illness: 83yo [facility] hip pain following a fall that occurred at 1500 today. Patient reports they were walking on gravel when she fell. Patient does use a walker. Reports the pain has worsened throughout the evening. EMS did give 100 mcg fentanyl and route. Patient denies any other concerns at this time. Associated symptoms: Deny fever(s) Related Data Home Medications ?Medication ?Instructions ?Recorded ?Confirmed amlodipine 10 mg tablet 10 mg PO DAILY 03/19/22 05/20/24 atorvastatin 20 mg tablet 20 mg PO BEDTIME 03/19/22 05/20/24 fluticasone propionate 50 2 spray intranasal DAILY PRN Nasal 03/19/22 05/20/24 mcg/actuation nasal Congestion spray,suspension aspirin 325 mg tablet 325 mg PO QPM 05/20/24 05/20/24 bisacodyl 10 mg rectal suppository 10 mg [place] DAILY PRN Constipation 05/20/24 05/20/24 (Dulcolax (bisacodyl)) bisacodyl 5 mg tablet,delayed 10 mg PO DAILY PRN Constipation 05/20/24 05/20/24 release (Dulcolax (bisacodyl)) calcium acetate(phosphat bind) 667 1,334 mg PO TID 05/20/24 05/20/24 mg capsule cetirizine 5 mg tablet 5 mg PO DAILY 05/20/24 05/20/24 cholecalciferol (vitamin D3) 10 10 mcg PO DAILY 05/20/24 05/20/24 mcg (400 unit) chewable tablet (Vitamin D3) donepezil 5 mg tablet 5 mg PO QPM 05/20/24 05/20/24 magnesium hydroxide 400 mg/5 mL 30 ml PO DAILY PRN Constipation 05/20/24 05/20/24 oral suspension (Milk of Magnesia) mirtazapine 7.5 mg tablet 7.5 mg PO DAILY 05/20/24 05/20/24 multivitamin 1 tab PO DAILY 05/20/24 05/20/24 pantoprazole 40 mg tablet,delayed 40 mg PO DAILY 05/20/24 05/20/24 release polyethylene glycol 3350 17 17 g PO BID 05/20/24 05/20/24 gram/dose oral powder sennosides 8.6 mg-docusate sodium 1 tab-cap PO BID 05/20/24 05/20/24 50 mg tablet wheat dextrin 5 gram/7.4 gram oral 3 g PO BID 05/20/24 05/20/24 powder (Benefiber Healthy Shape) Previous Rx's ?Medication ?Instructions ?Recorded hydralazine 25 mg tablet 25 mg PO TID #90 tabs 05/25/24 potassium chloride 10 mEq 10 meq PO DAILY #30 caps 05/25/24 capsule,extended release quetiapine 25 mg tablet 12.5 mg (1/2 x 25 mg) PO BEDTIME 05/25/24 #30 tabs tizanidine 2 mg tablet 2 mg PO Q8H PRN muscle spasticity 09/09/24 #20 tabs Allergies Allergy/AdvReac Type Severity Reaction Status Date / Time No Known Allergies Allergy Unverified 05/09/22 11:44 Review of Systems Const: Denies: fever(s), chills or body aches Musc: Reports: joint pain (left hip) and limited range of motion (left hip) [facility] ED PFSH: Medical History (Updated 09/09/24 @ 00:16 by EFFIE Rueda) History of CVA (cerebrovascular accident) Multiple pelvic fractures Fracture of left hip requiring operative repair Tibia fracture HTN (hypertension) CVA (cerebral vascular accident) Surgical History H/O right wrist surgery H/O: hysterectomy Family History Other Diabetes Hypertension Social History Smoking and tobacco/nicotine status: current every day tobacco/nicotine user Physical Exam Const: COMMON NORMALS: no acute distress, healthy appearing and alert GENERAL APPEARANCE: cooperative OTHER: Patient is laying reclined on the stretcher no acute distress. She is able to give history with no difficulty. She is interactive with exam appropriately. No family at bedside at time of exam HENMT: COMMON NORMALS: normocephalic and atraumatic HEAD & SCALP: normocephalic and atraumatic Chest: CHEST: Yes Symmetrical chest wall rise Resp: COMMON NORMALS: normal respiratory effort EFFORT & INSPECTION: Yes able to speak in complete sentences Extremity: LEFT LOWER EXTREMITY: Yes hip joint (Tenderness palpation. No ecchymosis or abrasions noted) OTHER: +PMS left lower leg Neuro: SENSORIUM/ORIENTATION: Yes alert Course Vital Signs: Vital signs: Vital Signs Temperature 97.8 F 09/08/24 22:30 Pulse Rate 82 09/08/24 22:30 Respiratory Rate 18 09/08/24 22:30 Blood Pressure 193/92 09/08/24 22:30 Pulse Oximetry 90 09/08/24 22:30 Oxygen Delivery Me thod Nasal Cannula 09/08/24 22:30 Oxygen Flow Rate 2 09/08/24 22:30 MDM - Extremity (Nontraumatic) Medical Decision Making 83yo female [facility] for evaluation of left hip pain following a fall that occurred at 1500 today. Patient reports they were walking on gravel when she fell. Patient does use a walker. Reports the pain has worsened throughout the evening. EMS did give 100 mcg fentanyl and route. Patient denies any other concerns at this time. Patient is nontoxic in appearance. Vital signs are stable. X-ray of the left hip reveals well-corticated osseous fragments surrounding the left proximal femur and left hip joint from prior injury. Old fracture deformities of the left pubic rami. Moderate degenerative changes of right hip joint. Sacroiliac joint degenerative changes. No acute injury noted. Discussed these findings with patient. Advised her hip would likely be very sore for a couple of days due to the fall. Patient did receive a single dose of ketorolac and tizanidine while in the emergency department to help with her pain and discomfort. Recommend she follow-up with primary care, call in 2 to 3 days with an update of symptoms and to discuss a recheck. Return precautions provided. Patient does state understanding has no further questions or concerns at this time. Medical Records I reviewed the patient's medical records. Lab Data Radiology Impressions Hip/Pelvis X-Ray 09/08/24 22:42 IMPRESSION: As above. All radiology interpretation(s) finalized by discharge Discharge Plan Discharge Patient Disposition: Home Clinical Impression: Acute pain of left hip, Fall Condition: Stable Prescriptions: New tizanidine 2 mg tablet 2 mg PO Q8H PRN (Reason: muscle spasticity) Qty: 20 0RF Discontinued azithromycin 250 mg Tablet 500 mg PO DAILY Qty: 2 0RF cefdinir 300 mg capsule 300 mg PO BID Qty: 4 0RF No Action multivitamin Tablet 1 tab PO DAILY donepezil 5 mg tablet 5 mg PO QPM aspirin 325 mg Tablet 325 mg PO QPM cetirizine 5 mg Tablet 5 mg PO DAILY sennosides-docusate sodium 8.6-50 mg Tablet 1 tab-cap PO BID magnesium hydroxide [Milk of Magnesia] 400 mg/5 mL Suspension 30 ml PO DAILY PRN (Reason: Constipation) bisacodyl [Dulcolax (bisacodyl)] 10 mg Suppository 10 mg [place] DAILY PRN (Reason: Constipation) pantoprazole 40 mg tablet,delayed release (DR/EC) 40 mg PO DAILY bisacodyl [Dulcolax (bisacodyl)] 5 mg Tablet,Delayed Release (Dr/Ec) 10 mg PO DAILY PRN (Reason: Constipation) polyethylene glycol 3350 17 gram/dose Powder 17 g PO BID mirtazapine 7.5 mg tablet 7.5 mg PO DAILY calcium acetate(phosphat bind) 667 mg capsule 1,334 mg PO TID cholecalciferol (vitamin D3) [Vitamin D3] 10 mcg (400 unit) Tablet,Chewable 10 mcg PO DAILY Benefiber Healthy Shape 5 gram/7.4 gram Powder 3 g PO BID atorvastatin 20 mg tablet 20 mg PO BEDTIME amlodipine 10 mg tablet 10 mg PO DAILY fluticasone propionate 50 mcg/actuation spray,suspension 2 spray INTRANASAL DAILY PRN (Reason: Nasal Congestion) quetiapine 25 mg Tablet 12.5 mg PO BEDTIME Qty: 30 0RF hydralazine 25 mg tablet 25 mg PO TID Qty: 90 0RF potassium chloride 10 mEq capsule, extended release 10 meq PO DAILY Qty: 30 0RF Discharge Orders: Discharge ED (Routine); Ordered 09/09/24 Ordered By: Burak Walker Referrals: Mike Day [Primary Care Provider, Family Practice] Discharge Diet: Usual diet Discharge Activity: Increase activity as tolerated Patient Instructions: Hip Pain (ED), Hip Contusion (ED), Pain Management, Patient Portal & Alfonso Instructions Activity Restrictions/Additional Instructions: No new fractures noted on the x-ray today, no changes to the chronic fractures noted Tizanidine has been sent to the pharmacy to help with the pain. This medication may make you sleepy. Follow-up with primary care within a week for recheck, sooner if needed Return to the emergency department if any rapid worsening symptoms, further injury, and as needed Print Language: Trinidadian Coding Level of Care Code ED Flask Pusher for Fracisco Cortez
--- OUTSIDE RECORDS SUMMARY | 2024-09-08 22:46 | XMS_ITS | Encounter Summary ---
Author Organization [facility] Address [address] [place] [address] Care Team Providers Care Sales Performance Manager Name Role Phone Mike Day MD Primary Care Provider [phone] Encounter Details Date Type Department Care Team (Latest Contact Info) Description 08/10/1998 Outpatient Historical [facility] Medicine [place] [address] [phone] Devi Mack NO ADDRESS ON FILE Chronic airway obstruction, not elsewhere classified (CMS/HCC) (Primary Dx); Pure hypercholesterolem; Unspecified essential hypertension Social History Tobacco Use Types Packs/Day Years Used Date Smoking Tobacco: Never Assessed Comments Unknown Sex and Gender Information Value Date Recorded Sex Assigned at Not on file 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 Gender Identity Not on file Sexual Orientation Not on file documented as of this encounter Plan of Treatment Not on file documented as of this encounter Visit Diagnoses Diagnosis Chronic airway obstruction, not elsewhere classified (CMS/HCC)- Primary Chronic airway obstruction, not elsewhere classified Pure hypercholesterolem Pure hypercholesterolemia Unspecified essential hypertension documented in this encounter Care Teams Sales Performance Manager Relationship Specialty Start Date End Date Mike Day MD [address] [phone] PCP - General Family Practice 09/17/16 documented as of this encounter
--- OUTSIDE RECORDS SUMMARY | 2024-09-08 22:46 | XMS_ITS | Encounter Summary ---
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
--- OUTSIDE RECORDS SUMMARY | 2024-09-08 22:46 | XMS_ITS | Encounter Summary ---
Author Organization [facility] Address [address] [place] [address] Care Team Providers Care Cork Sorter Name Role Phone Mike Day MD Primary Care Provider [phone] Encounter Details Date Type Department Care Team (Latest Contact Info) Description 03/01/2003 Outpatient Historical [facility] Family Medicine [place] [address] [phone] Nirmal Galan MD [address] 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
--- OUTSIDE RECORDS SUMMARY | 2024-09-08 22:46 | XMS_ITS | Clinical Summary ---
Author Organization [facility] Address [address] [facility] [address] [place] [address] Care Team Providers Care Faculty Criminal Justice Name Role Phone Mike Day MD Primary Care Provider [phone] Allergies No known active allergies Medications ZYRTEC 10 mg Oral Tab Take 10 mg by mouth daily. Active OMEGA-3 FATTY ACIDS (FISH OIL ORAL) Take by mouth. Activ e MULTIVITAMINS WITH FLUORIDE (MULTI-VITAMIN ORAL) Take by mouth. Activ e aspirin (JESICA) 325 mg tablet Take 650 mg by mouth daily at bedtime . Active calcium acetate (PHOSLO) 667 mg tabletIndications: Postmenopausal,His tory of hip fracture Take 2 Tablets by mouth 3 times daily. Active Cholecalciferol, Vitamin D3, (VITAMIN D3) 400 unit capsuleIndications :Postmenopausal,Hi story of hip fracture Take 400 Units by mouth daily. Active amLODIPine (NORVASC) 10 mg tabletIndications: HTN (hypertension), benign Take 1 Tablet (10 mg) by mouth daily. 90 Tablet 4 0 Active atenoloL-chlorthal idone (TENORETIC) 50-25 mg tabletIndications: HTN (hypertension), benign Take 1 Tablet by mouth daily. 90 Tablet 4 0 Active atorvastatin (LIPITOR) 20 mg tabletIndications: Mixed hyperlipidemia Take 1 Tablet (20 mg) by mouth daily at bedtime. 90 Tablet 4 0 Active fluticasone propionate (FLONASE) 50 mcg/spray [place], Suspension nasal inhalerIndications :Seasonal allergic rhinitis, unspecified trigger Administer 2 Sprays in each nostril daily. 16 Gram 5 0 Active lisinopriL (PRINIVIL) 40 mg tabletIndications: HTN (hypertension), benign Take 1 Tablet (40 mg) by mouth daily. 90 Tablet 4 0 Active alendronate (Fosamax) 70 mg tabletIndications: Age-related osteoporosis without current pathological fracture Take 1 Tablet (70 mg) by mouth every 7 days. empty stomach before other meds,with 8oz of water, stay upright 30 min 12 Tablet 4 0 Active potassium chloride (KLOR-CON) 20 mEq Extended Release tabletIndications: Hypokalemia Take 1 Tablet (20 mEq) by mouth daily. 90 Tablet 4 1 Active sennosides-docusat e sodium (SENNA-S) 8.6-50 mg tabletIndications: Constipation, unspecified constipation type Take 1 Tablet by mouth 2 times daily as needed for Constipation. 60 Tablet 5 1 Active Active Problems Problem Noted Date Diagnosed Date PVD (peripheral vascular disease) 08/02/2020 Emphysema of lung 10/07/2019 Overview (10/07/2019): ADDED PER PVQ RESPONSE DOS 7.31.2019 Severe protein-calorie malnutrition 08/28/2018 Age-related osteoporosis wit hout current pathological fracture 08/13/2017 History of hip fracture 04/16/2017 Underweight 04/16/2017 Gait instability 04/16/2017 Ascending aortic aneurysm 04/16/2017 Assessment & Plan (04/16/2017 7:56 PM CIVIL DRAFTING TECHNICIAN): 4.1 cm Pulmonary nodules 04/16/2017 Cigarette dependence 08/18/2015 HTN (hypertension), benign 02/05/2008 Hyperlipidemia 02/05/2008 Overview (08/26/2012): HDL: 96 (08/14); 70 (11/13); 81 (10/12); 65 (05/12); 83 (11/11) LDL: 77 (08/14); 88 (11/13); 72 (8); 176 (05/12); 58 (11/11) Postmenopausal, Sugical (1970s) 02/05/2008 Overview (02/05/2008): BMD (02/07): Normal Allergic rhinitis 02/05/2008 Overview (08/05/2008): Allergy testing: Everything Endometriosis, S/P Hyst Resolved Problems Problem Noted Date Diagnosed Date Resolved Date Osteoporosis screening 05/03/201008/31 Overview (05/03/2010): BMD (02/07): Normal Colon cancer screening 05/03/201008/31 Overview (05/03/2010): Colonoscopy: Desires to wait (05/12) Serum calcium elevated 02/09/200808/26 Overview (11/20/2011): Calcium: 10.3 (11/13); 10.6 (05/12); 10.6 (11/11, Ionized Ca 5.6); 10.7 (02/08) Intact PTH: 11/13, WNL Breast CA Screening 02/05/2008 09/01/19 17 Overview (11/19/2011): Mammo: 02/11; 01/11; 12/10; 02/07 Tobacco abuse 02/05/2008 08/31/2014 Overview (08/25/2012): 1 ppd (08/14) Immunizations Immunization Administration Dates Next Due (PNEUMOVAX 23)(50 YRS UP) PN EUMOCOCCAL POLYSACCHARIDE (PPV23) 0.5 ML, IM 01/16/2007 (SPIKEVAX) (12 YRS UP PRIMAR Y SERIES) COVID-19 VACCINE - MRNA-1273(PF) 100 MCG/0.5 ML IM SUSP 06/20/2020,05/23/2020 (TDVAX)(7 YRS UP) TETANUS AN D DIPHTHERIA TOXOIDS, ADSORBED (2 LF OF TETANUS TOXOID AND 2 LF OF DIPHTHERIA TOXOID), 0.5ML (PF), IM 10/16/2010 INFLUENZA VACCINE HIGH DOSE QUADRIVALENT 65 YR UP PF IM 11/25/2019 INFLUENZA VACCINE QUADRIVALE NT 6 MOS UP IM 12/15/2018 Influenza Seasonal Unspecifi ed Formulation IM 12/15/2018,11/28/2016,11/26/2015,12/14,12/02/2013 Influenza Vaccine Split 3+ Yrs PF IM 12/04/2012, 11/19/2011,11/09/2010 Zoster Vaccine Live SQ 01/06/2013 Family History Medical History Relation Name Comments Cancer Father Pancreatic CA Diabetes Father Unknown Maternal Grandfather Unknown Maternal Grandmother Unknown Mother Diabetes Paternal Grandfather Unknown Paternal Grandfather Unknown Paternal Grandmother Breast Cancer Neg Hx Colon Cancer Neg Hx Relation Name Status Comments Father Maternal Grandfather Maternal Grandmother Mother Paternal Grandfather Paternal Grandmother Social History Tobacco Use Types Packs/Day Years Used Date Smoking Tobacco: Every Day Cigarettes Smokeless Tobacco: Never Tobacco Cessation:Ready to Q uit: No; Counseling Given: Yes Alcohol Use Standard Drinks/Week Comments Yes 0 (1 standard drink = 0.6 oz pur e alcohol) glass of wine daily Social Connections Answer Date Recorded In a typical week, how many times do you talk on the phone with family, friends, or neighbors? Once a week 10/02/2019 How often do you get together with friends or re latives? Never 10/02/2019 How often do you attend mormonism or cheondoism serv ices? Never 10/02/2019 Do you belong to any clubs o r organizations such as mormonism groups, unions, fraternal or athletic groups, or school groups? No 10/02/2019 How often do you attend meet ings of the clubs or organizations you belong to? Never 10/02/2019 Are you , , di vorced, , never , or living with a partner? 10/02/2019 Financial Resource Strain Answer Date R ecorded How hard is it for you to pa y for the very basics like food, housing, medical care, and heating? Not hard at all 10/02/2019 Food Insecurity Answer Date Recorded Within the past 12 months, y ou worried that your food would run out before you got the money to buy more. Never true 10/02/19 20 Within the past 12 months, t he food you bought just didn't last and you didn't have money to get more. Never true 10/02/2019 Transportation Needs Answer Date Record ed In the past 12 months, has l ack of transportation kept you from medical appointments or from getting medications? No 09/03 In the past 12 months, has l ack of transportation kept you from meetings, work, or from getting things needed for daily living? No 10/02/2019 Education Answer Date Recorded What is the highest level of school you have completed or the highest degree you have received? 12th grade 10/02/2019 Comments No Sex and Gender Information Value Date Recorded Sex Assigned at Not on file Legal Sex Female 2:52 AM CIVIL DRAFTING TECHNICIAN Gender Identity Not on file Sexual Orientation Not on file Last Filed Vital Signs Vital Sign Reading Time Taken Comments Blood Pressure 138/68 08/02/2020 10:32 AM CDT Pulse 61 08/02/2020 10:32 AM CDT Temperature 36.4 C (97.5 F) 08/02/2020 10:32 AM CDT Respiratory Rate 16 08/02/2020 10:32 AM CDT Oxygen Saturation 98% 08/02/2020 10:32 AM CDT Inhaled Oxygen Concentration - - Weight 45.4 kg (100 lb) 08/02/2020 10:32 AM CDT Height 162.6 cm (5' 4 ) 08/02/2020 10:32 AM CDT Body Mass Index 17.16 08/02/2020 10:32 AM CDT Plan of Treatment Health Maintenance Due Date Last Done Comments PNEUMOCOCCAL VACCINE 50+ YEA RS (2 of 2 - PCV) 01/17/2008 01/16/2007 DTAP/TDAP/TD VACCINES (1 - Tdap) 10/17/2010 10/17/19 11 ZOSTER VACCINE (2 of 3) 03/03/2013 01/06/2013 RSV VACCINE (60+ or ) (1 - 1-dose 75+ series) 2016 OSTEOPOROSIS SCREENING 04/24/2022 04/24/2017 COVID-19 Vaccine (3 - 2023-2 5 season) 2023 06/20/2020, 05/23/2020 [place] Preventative Visit/Annual Wellness Visit 03/04/2024 10/02/2019, 03/03/2019, 08/30/2017, Additional history exists INFLUENZA VACCINE (#1) 2024 0, 12/15/2018, 12/15/2018, Additional history exists Colorectal Cancer Screening Discontinued FIT/FOBT Q 1 year Discontinued 08/24/1999 COLORECTAL SCREENING Discontinued FIT-DNA Q 3 years Discontinued Flex Sig/CT Colonography Q 5 years Discontinued Procedures Procedure Name Priority Date/Time Associated Diagnosis Comments XR DEXA BONE DENSITY AXIAL 1 OR MORE SITES Routine 04/24/2017 1:42 PM CIVIL DRAFTING TECHNICIAN Postmenopausal, Sugical (1970s) History of hip fracture from Last 3 Months or Most Recently Relevant to Health Maintenance Results * XR DEXA BONE DENSITY AXIAL 1 OR MORE SITES (04/24/2017 1:42 PM CIVIL DRAFTING TECHNICIAN) Anatomical Region Laterality Modality Digital Radiogra phy 04/24/2017 1:44 PM CIVIL DRAFTING TECHNICIAN Impressions 04/24/2017 1:50 PM CIVIL DRAFTING TECHNICIAN IMPRESSION: Abnormal examination Bone density lies in the osteoporotic range in the right proximal femur and at a single lumbar level consistent with early accelerated bone demineralization as the etiology of her osteoporosis. NOF guidelines recommend consideration of FDA-approved medical therapies in patients with T-scores of the spine or hip equal to or less than -2.5 or with FRAX determined 10-year probabilities of hip/major osteoporosis-related fractures equal or greater than 3%/20% respectively. Consider assessing fracture risk using the FRAX analysis tool for guidance of clinical management available online at www.shef.ac.uk/FRAX/. Enter [employer] for Select DXA and the total hip BMD value as it will provide a more accurate assessment of fracture risk. Also consider remeasuring no sooner than 2 years only as clinically needed. Narrative 04/24/2017 1:50 PM CIVIL DRAFTING TECHNICIAN DEXA Evaluation of the Lumbar Spine and Right Proximal Femur Reason for Consultation: Ovarian failure. Evaluation of bone mineral density. The following absorptiometry data were obtained. The quality of this examination is acceptable with regards to count density, processed images, data display and lack of important artifacts (including but not limited to motion and attenuation artifacts). Serial examination number 1. Lumbar spine images demonstrate marked degenerative changes resulting in spurious elevation of bone density at lower levels. L1/L1-L2 BMD (g/cm2): 0.591/0.773 Adult T-score: -3.0/-1.9 Adult Z-score: -0.9/0.4 Right femoral neck BMD (g/cm2): 0.656 Adult T-score: -1.7 Adult Z-score: 0.4 Left Total Hip BMD (g/cm2): 0.630 Adult T-score: -2.6 Adult Z-score: -0.8 Procedure Note Minesh Hurd MD - 04/24/2017 DEXA Evaluation of the Lumbar Spine and Right Proximal Femur Reason for Consultation: Ovarian failure. Evaluation of bone mineral density. The following absorptiometry data were obtained. The quality of this examination is acceptable with regards to count density, processed images, data display and lack of important artifacts (including but not limited to motion and attenuation artifacts). Serial examination number 1. Lumbar spine images demonstrate marked degenerative changes resulting in spurious elevation of bone density at lower levels. L1/L1-L2 BMD (g/cm2): 0.591/0.773 Adult T-score: -3.0/-1.9 Adult Z-score: -0.9/0.4 Right femoral neck BMD (g/cm2): 0.656 Adult T-score: -1.7 Adult Z-score: 0.4 Left Total Hip BMD (g/cm2): 0.630 Adult T-score: -2.6 Adult Z-score: -0.8 IMPRESSION: Abnormal examination Bone density lies in the osteoporotic range in the right proximal femur and at a single lumbar level consistent with early accelerated bone demineralization as the etiology of her osteoporosis. NOF guidelines recommend consideration of FDA-approved medical therapies in patients with T-scores of the spine or hip equal to or less than -2.5 or with FRAX determined 10-year probabilities of hip/major osteoporosis-related fractures equal or greater than 3%/20% respectively. Consider assessing fracture risk using the FRAX analysis tool for guidance of clinical management available online at www.shef.ac.uk/FRAX/. Enter [employer] for Select DXA and the total hip BMD value as it will provide a more accurate assessment of fracture risk. Also consider remeasuring no sooner than 2 years only as clinically needed. Mike Day MD DIAGNOSTIC IMAGING ORDERA BLES Final Result from Last 3 Months or Most Recently Relevant to Health Maintenance Insurance [address] [place] [address] [place] Care Teams Faculty Criminal Justice Relationship Specialty Start Date End Date Mike Day MD [address] [phone] PCP - General Family Practice 09/17/16
--- OUTSIDE RECORDS SUMMARY | 2024-09-08 22:46 | XMS_ITS | Clinical Summary ---
Author Organization [facility] Address [address] [place] [address] [address] [place] [address] Care Team Providers Care Pediatric Surgeon Name Role Phone Mike Day MD Primary Care Provider +1 [phone] Allergies Active Allergy Reactions Criticality Noted Date Comments Baclofen Other (See Comments) 05/02/2023 Vision loss, weakness Medications calcium acetate,phosphat bind, (PHOSLO) 667 mg tabletIndications:P ostmenopausal,Histo ry of hip fracture Take 2 Tablets by mouth 3 times daily. 8 Active Cholecalciferol, Vitamin D3, (VITAMIN D3) 10 mcg (400 unit) capsuleIndications: Postmenopausal,Hist ory of hip fracture Take 400 Units by mouth daily. 8 Active aspirin (JESICA) 325 mg tablet Take 325 mg by mouth daily at bedtime. 5 Active omega-3 fatty acids-fish oil 300 mg-1,000 mg capsule Take by mouth daily. Active sennosides-docusate sodium (SENNA-S) 8.6-50 mg tabletIndications:C onstipation, unspecified constipation type Take 1 Tablet by mouth 2 times daily as needed for Constipation . 60 Tablet 5 2 Active Foam Bandage (Tendra Mepilex Border) 3 X 3 BandageIndications: Pressure injury of sacral region, unstageable (CMS/HCC) Change bandage daily 30 Each 1 3 Active polyethylene glycol 3350 17 gram/dose oral powder Take 17 Grams by mouth daily. Dissolve in 8 ounces of fluid and drink entire liquid Active amLODIPine (NORVASC) 10 mg tabletIndications:H TN (hypertension), benign Take 1 Tablet (10 mg) by mouth daily. 90 Tablet 3 4 Active donepeziL (Aricept) 5 mg tabletIndications:M ild vascular dementia without behavioral disturbance, psychotic disturbance, mood disturbance, or anxiety (CMS/HCC) Take 1 Tablet (5 mg) by mouth daily with supper. 90 Tablet 3 4 Active potassium chloride (KLOR-CON) 20 mEq Extended Release tabletIndications:H ypokalemia Take 1 Tablet (20 mEq) by mouth daily. 90 Tablet 3 4 Active fluticasone propionate (FLONASE) 50 mcg/spray [place], Suspension nasal inhalerIndications: Seasonal allergic rhinitis, unspecified trigger SPRAY TWICE IN EACH NOSTRIL DAILY. 16 Gram 11 4 Active cetirizine (ZyrTEC) 10 mg tabletIndications:S easonal allergic rhinitis, unspecified trigger Take 1 Tablet (10 mg) by mouth daily at bedtime. 90 Tablet 3 4 Active atorvastatin (LIPITOR) 20 mg tabletIndications:M ixed hyperlipidemia Take 1 Tablet (20 mg) by mouth daily at bedtime. 100 Tablet 3 4 Active mirtazapine (REMERON) 15 mg tablet Take 1 Tablet (15 mg) by mouth daily at bedtime. 4 Active oxyCODONE (ROXICODONE) 5 mg tabletIndications:P ressure injury of coccygeal region, unstageable (CMS/HCC),Duodenal ulcer perforation (CMS/HCC) Take 1 Tablet (5 mg) by mouth every 6 hours as needed for Pain. Max Daily Amount: 20 mg 20 Tablet 4 Active pantoprazole (PROTONIX) 40 mg Tablet, Delayed Release (E.C.) Take 1 Tablet (40 mg) by mouth daily before breakfast. 4 Active Active Problems Problem Noted Date Diagnosed Date Pressure injury of coccygeal region, unstageable 07/16/2023 Bilateral pneumonia 07/14/2023 Acute respiratory failure with hypoxia Atelectasis of left lung 06/30/2023 Perforation bowel 06/28/2023 Acute abdomen 06/28/2023 Severe sepsis with septic shock 06/28/2023 Duodenal ulcer perforation 06/28/2023 Moderate protein-calorie malnutrition 06/28/2023 Bilateral pleural effusion 06/28/2023 Pericardial effusion 06/28/2023 Ileus 06/28/2023 FIDEL (acute kidney injury) 06/28/2023 Hypokalemia 05/02/2023 Generalized weakness 03/02/2023 Spasm of skeletal muscle of thorax 02/28/2023 Drug-induced constipation 07/06/2022 Cerebral atrophy 04/25/2022 Vascular dementia 04/25/2022 PVD (peripheral vascular disease) 08/02/2020 Emphysema of lung 10/07/2019 Overview (07/01/2020): ADDED PER PVQ RESPONSE DOS 7.31.2019 Protein-calorie malnutrition, severe 08/28/2018 Age-related osteoporosis wit hout current pathological fracture 08/13/2017 History of hip fracture 04/16/2017 Gait instability 04/16/2017 Ascending aortic aneurysm 04/16/2017 Nodule of left lung 04/16/2017 Cigarette dependence 08/18/2015 Postmenopausal, Sugical (1970s) 02/05/2008 Overview (06/30/2020): BMD (02/07): Normal HTN (hypertension), benign 02/05/2008 Allergic rhinitis 02/05/2008 Overview (06/30/2020): Allergy testing: Everything Hyperlipidemia 02/05/2008 Overview (06/30/2020): HDL: 96 (/); 70 (9/12); 81 (8/11); 65 (3/11); 83 (9/10) LDL: 77 (/); 88 (9/12); 72 (8/11); 176 (3/11); 58 (9/10) Endometriosis, S/P Hyst Resolved Problems Problem Noted Date Diagnosed Date Resolved Date Stage 3a chronic kidney disease 05/02/2023 05/02/2023 Fecal impaction of colon 07/06/2022 Underweight 04/16/2017 04/25/2022 Osteoporosis screening 05/03/201008/31 Overview (06/29/2020): BMD (02/07): Normal Colon cancer screening 05/03/201008/31 Overview (06/29/2020): Colonoscopy: Desires to wait (05/12) Serum calcium elevated 02/09/200808/26 Overview (06/29/2020): Calcium: 10.3 (11/13); 10.6 (05/12); 10.6 (11/11, Ionized Ca 5.6); 10.7 (02/08) Intact PTH: 11/13, WNL Tobacco abuse 02/05/2008 08/31/2014 Overview (06/29/2020): 1 ppd (08/14) Breast CA Screening 02/05/2008 09/01/19 17 Overview (06/29/2020): Mammo: 02/11; 01/11; 12/10; 02/07 Encounters Date Type Department Care Team Description 07/24/2024 External Device Data Initial Department [address] TEJEDA: [place] [address] [facility], 06/16/2024 External Device Data STL ABSTRACTION Provider, Abstract from Last 3 Months Immunizations Immunization Administration Dates Next Due (ADACEL/BOOSTRIX)(10 YR UP) TDAP VACCINE, 0.5ML, IM 09/25/2022 (PNEUMOVAX 23)(50 YRS UP) PN EUMOCOCCAL POLYSACCHARIDE (PPV23) 0.5 ML, IM 01/16/2007 (SPIKEVAX) (12 YRS UP PRIMAR Y SERIES) COVID-19 VACCINE - MRNA-1273(PF) 100 MCG/0.5 ML IM SUSP 01/05/2022,06/20/2020,05/23/2020 (TDVAX)(7 YRS UP) TETANUS AN D DIPHTHERIA TOXOIDS, ADSORBED (2 LF OF TETANUS TOXOID AND 2 LF OF DIPHTHERIA TOXOID), 0.5ML (PF), IM 10/16/2010 INFLUENZA VACCINE HIGH DOSE QUADRIVALENT 65 YR UP PF IM 11/25/2019 INFLUENZA VACCINE QUADRIVALE NT 6 MOS UP IM 12/15/2018 Influenza Seasonal Unspecifi ed Formulation IM 12/16/2021,12/15/2018,11/28/2016,11/25,12/14/2014,12/02/2013 Influenza Vaccine Split 3+ Yrs PF IM [...] Tobacco: Never Tobacco Cessation:Ready to Q uit: Not Asked; Counseling Given: Not Answered Alcohol Use Standard Drinks/Week Comments Not Currently 0 (1 standard drink = 0.6 oz pur e alcohol) 1 daphne in the evening Social Connections Answer Date Recorded In a typical week, how many times do you talk on the phone with family, friends, or neighbors? Once a week 10/02/2019 How often do you get together with friends or re latives? Never 10/02/2019 How often do you attend yazidi or mosque serv ices? Never 10/02/2019 Do you belong to any clubs o r organizations such as yazidi groups, unions, fraternal or athletic groups, or [...] care, and heating? Not hard at all 08/21/2021 Food Insecurity Answer Date Recorded In the past 12 months, have you worried that your food would run out before you had money to buy more? Never true 08/21/2021 In the past 12 months, did y ou run out of food and didn't have money to buy more? Never true 08/21/2021 Transportation Needs Answer Date Record ed In the past 12 months, has l ack of transportation kept you from medical appointments or from getting medications? No 09/03 In the past 12 months, has l ack of transportation kept you from meetings, work, or from getting things needed for daily living? No 10/02/2019 Feeling Safe Answer Date Recorded Are you in a relationship wi th someone who hurts you emotionally and/or physically? No 06/27/2023 Food Insecurity Answer Date Recorded Patient needs follow up regardin 06/24/2024 Transportation Needs Answer Date Record ed Patient needs follow up regardin 06/24/2024 Housing Stability Answer Date Recorded Social/Environmental Concerns No concerns Utility Needs Answer Date Recorded Patient needs follow up regardin 06/24/2024 Comments No Sex and Gender Information Value Date Recorded Sex Assigned at Not on file Legal Sex Female 10:02 AM REHABILITATION ATTENDANT Gender Identity Not on file Sexual Orientation Not on file Last Filed Vital Signs Vital Sign Reading Time Taken Comments Blood Pressure 121/64 07/19/2023 7:59 AM CDT Pulse 63 07/19/2023 7:59 AM CDT Temperature 36.5 C (97.7 F) 07/19/2023 7:59 AM CDT Respiratory Rate 17 07/19/2023 7:59 AM CDT Oxygen Saturation 97% 07/19/2023 7:59 AM CDT Inhaled Oxygen Concentration - - Weight 53.7 kg (118 lb 6.2 oz) 07/11/2023 4:00 A M CDT Height 160 cm (5' 3 ) 07/01/2023 9:39 AM CDT Body Mass Index 20.97 07/01/2023 9:39 AM CDT Plan of Treatment Health Maintenance Due Date Last Done Comments PNEUMOCOCCAL VACCINE 50+ YEA RS (2 of 2 - PCV) 01/17/2008 01/16/2007 ZOSTER VACCINE (2 of 3) 03/03/2013 01/06/2013 RSV VACCINE (60+ or ) (1 - 1-dose 75+ series) 2016 OSTEOPOROSIS SCREENING 04/24/2022 04/24/2017, 2017 COVID-19 Vaccine (2023-2 5 season) 2023 01/05/2022, 06/20/2020, 05/23/2020 [place] Preventative Visit/Annual Wellness Visit 03/04/2024 08/31/2022, 08/21/2021, 10/16/2010 INFLUENZA VACCINE (#1) 2024 2, 11/25/2019, 12/15/2018, Additional history exists DTAP/TDAP/TD VACCINES (2 - T d or Tdap) 09/25/2032 09/25/2022, 10/16/2010 Procedures Procedure Name Priority Date/Time Associated Diagnosis Comments XR DEXA BONE DENSITY AXIAL 1 OR MORE SITES Routine 04/24/2017 1:42 PM REHABILITATION ATTENDANT Postmenopausal History of hip fracture from Last 3 Months or Most Recently Relevant to Health Maintenance Results * XR DEXA BONE DENSITY AXIAL 1 OR MORE SITES (04/24/2017 1:42 PM REHABILITATION ATTENDANT) Anatomical Region Laterality Modality Other Impressions 04/24/2017 1:50 PM REHABILITATION ATTENDANT Abnormal examination Bone density lies in the [...] clinical management available online at www.shef.ac.uk/FRAX/. Enter [employer] for Select DXA and the total hip BMD value as it will provide a more accurate assessment of fracture risk. Also consider remeasuring no sooner than 2 years only as clinically needed. Narrative 04/24/2017 1:50 PM REHABILITATION ATTENDANT DEXA Evaluation of the Lumbar Spine and [...] -0.8 Procedure Note Minesh Hurd MD - 04/28/2021 DEXA Evaluation of the Lumbar Spine and [...] 0.630 Adult T-score: -2.6 Adult Z-score: -0.8 IMPRESSION Abnormal examination Bone density lies in the [...] clinical management available online at www.shef.ac.uk/FRAX/. Enter [employer] for Select DXA and the total hip BMD value as it will provide a more accurate assessment of fracture risk. Also consider remeasuring no sooner than 2 years only as clinically needed. Mike Day MD DIAGNOSTIC IMAGING ORDERA BLES Final Result from Last 3 Months or Most Recently Relevant to Health Maintenance Insurance [address] [place] [address] [facility] DUAL COMPLETE [facility] [id number] Advance Directives For more information, please contact: [phone] * Full Code (Latest Code Status on File) Date Activated Date Inactivated Comments 06/28/2023 5:20 AM 07/19/2023 6:44 PM * Full Code Date Activated Date Inactivated Comments 03/02/2023 8:17 PM 03/03/2023 3:49 PM Care Teams Pediatric Surgeon Relationship Specialty Start Date End Date Mike Day MD [address] [id number] PCP - General Family Practice 09/17/16
--- OUTSIDE RECORDS SUMMARY | 2024-09-08 22:46 | XMS_ITS | Encounter Summary ---
Author Organization [facility] Address [address] [place] [address] Care Team Providers Care Hand Spring Repairer Name Role Phone Mike Day MD Primary Care Provider [phone] [phone] Encounter Details Date Type Department Care Team (Latest Contact Info) Description 01/16/2007 Outpatient Historical [facility] Medicine [place] [address] [address] Sandeep Daugherty MD NO ADDRESS ON FILE Unspecified Essential Hypertension (Primary Dx); Other and Unspecified Hyperlipidemia; Other Conjunctivitis; Vaccin Strep Pneumoniae Social History Tobacco Use Types Packs/Day Years Used Date Smoking Tobacco: Never Assessed Comments Unknown Sex and Gender Information Value Date Recorded Sex Assigned at Not on file Legal Sex Female 2:52 AM HOME 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 SUPERVISOR Gender Identity Not on file Sexual Orientation Not on file documented as of this encounter Plan of Treatment Not on file documented as of this encounter Visit Diagnoses Diagnosis Unspecified essential hypertension- Primary Other and unspecified hyperlipidemia Other conjunctivitis Need for prophylactic vaccination against Streptococcus pneumoniae (pneumococcus) Need for prophylactic vaccination against streptococcus pneumoniae (pneumococcus) documented in this encounter Care Teams Hand Spring Repairer Relationship Specialty Start Date End Date Mike Day MD [address] [address] PCP - General Family Practice 09/17/16 documented as of this encounter
--- OUTSIDE RECORDS SUMMARY | 2024-09-08 22:46 | XMS_ITS | Encounter Summary ---
Author Organization [facility] Address [address] [place] [address] Care Team Providers Care Internal Medicine Nurse Practitioner Name Role Phone Mike Day MD Primary Care Provider [phone] [phone] Encounter Details Date Type Department Care Team (Latest Contact Info) Description 08/16/2000 Outpatient Historical [facility] Family Medicine [place] [address] [address] Nirmal Galan MD [address] [facility] [address] [place] [address] Unspecified essential hypertension (Primary Dx); Other and unspecified hyperlipidemia Social History Tobacco Use Types Packs/Day Years Used Date Smoking Tobacco: Never Assessed Comments Unknown Sex and Gender Information Value Date Recorded Sex Assigned at Not on file Legal Sex Female 2:52 AM 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
--- OUTSIDE RECORDS SUMMARY | 2024-09-08 22:46 | XMS_ITS | Encounter Summary ---
Author Organization [facility] Address [address] [place] [address] Care Team Providers Care Practice Administrator Name Role Phone Mike Day MD Primary Care Provider [phone] [phone] Encounter Details Date Type Department Care Team (Latest Contact Info) Description 11/07/2001 Outpatient Historical [facility] Family Medicine [place] [address] [address] Nirmal Galan MD [address] [facility] [address] [place] [address] HYPERTENSION NOS (Primary Dx); Toxic effect venom Social History Tobacco Use Types Packs/Day Years Used Date Smoking Tobacco: Never Assessed Comments Unknown Sex and Gender Information Value Date Recorded Sex Assigned at Not on file Legal Sex Female 2:52 AM MANAGER UTILIZATION REVIEW Gender Identity Not on file Sexual Orientation Not on file documented as of this encounter Plan of Treatment Not on file documented as of this encounter Visit Diagnoses Diagnosis Unspecified essential hypertension- Primary Toxic effect venom Toxic effect of venom documented in this encounter Care Teams Practice Administrator Relationship Specialty Start Date End Date Mike Day MD [address] [address] PCP - General Family Practice 09/17/16 documented as of this encounter
--- OUTSIDE RECORDS SUMMARY | 2024-09-08 22:46 | XMS_ITS | Encounter Summary ---
Author Organization [facility] Address [address] [place] [address] Care Team Providers Care Class C Driver Name Role Phone Mike Day MD Primary Care Provider +1 [phone] Encounter Details Date Type Department Care Team (Latest Contact Info) Description 02/07/2001 Outpatient Historical [facility] Family Medicine [place] [address] [address] Nirmal Galan MD [address] [facility] [address] [place] [address] HYPERTENSION NOS (Primary Dx); DIABETES UNCOMPL ADULT-TYPE II (CMS/HCC) Social History Tobacco Use Types Packs/Day Years Used Date Smoking Tobacco: Never Assessed Comments Unknown Sex and Gender Information Value Date Recorded Sex Assigned at Not on file Legal Sex Female 2:52 AM NON DESTRUCTIVE TESTING SPECIALIST Gender Identity Not on file Sexual Orientation Not on file documented as of this encounter Plan of Treatment Not on file documented as of this encounter Visit Diagnoses Diagnosis Unspecified essential hypertension- Primary Type II or unspecified type diabetes mellitus without mention of complication, not stated as uncontrolled documented in this encounter Care Teams Class C Driver Relationship Specialty Start Date End Date Mike Day MD [address] [address] PCP - General Family Practice 09/17/16 documented as of this encounter
--- OUTSIDE RECORDS SUMMARY | 2024-09-08 22:46 | XMS_ITS | Encounter Summary ---
Author Organization [facility] Address [address] [place] [address] Care Team Providers Care Supervisor Open Hearth Stockyard Name Role Phone Mike Day MD Primary Care Provider [phone] [phone] Encounter Details Date Type Department Care Team (Latest Contact Info) Description 01/19/1998 Outpatient Historical [facility] Family Medicine [place] [address] [address] Devi Mack NO ADDRESS ON FILE Other and unspecified hyperlipidemia (Primary Dx) Social History Tobacco Use Types Packs/Day Years Used Date Smoking Tobacco: Never Assessed Comments Unknown Sex and Gender Information Value Date Recorded Sex Assigned at Not on file Legal Sex Female 2:52 AM MAINSPRING REVERSE WINDER Gender Identity Not on file Sexual Orientation Not on file documented as of this encounter Plan of Treatment Not on file documented as of this encounter Visit Diagnoses Diagnosis Other and unspecified hyperlipidemia- Primary documented in this encounter Care Teams Supervisor Open Hearth Stockyard Relationship Specialty Start Date End Date Mike Day MD [address] [address] PCP - General Family Practice 09/17/16 documented as of this encounter
--- OUTSIDE RECORDS SUMMARY | 2024-09-08 22:46 | XMS_ITS | Encounter Summary ---
Author Organization [facility] Address [address] [place] [address] Care Team Providers Care Curb Supervisor Name Role Phone Mike Day MD Primary Care Provider [phone] [phone] Encounter Details Date Type Department Care Team (Latest Contact Info) Description 08/24/1999 Outpatient Historical [facility] Medicine [place] [address] [phone] Devi Mack NO ADDRESS ON FILE Allergic rhinitis, cause unspecified (Primary Dx); Unspecified essential hypertension; Other and unspecified hyperlipidemia; Screening for malignant neoplasm of the oral cavity Social History Tobacco Use Types Packs/Day Years Used Date Smoking Tobacco: Never Assessed Comments Unknown Sex and Gender Information Value Date Recorded Sex Assigned at Not on file Legal Sex Female 2:52 AM PLATE MOUNTER Gender Identity Not on file Sexual Orientation Not on file documented as of this encounter Plan of Treatment Not on file documented as of this encounter Visit Diagnoses Diagnosis Allergic rhinitis, cause unspecified- Primary Unspecified essential hypertension Other and unspecified hyperlipidemia Screening for malignant neoplasm of the oral cavity documented in this encounter Care Teams Curb Supervisor Relationship Specialty Start Date End Date Mike Day MD [address] [phone] PCP - General Family Practice 09/17/16 documented as of this encounter
--- OUTSIDE RECORDS SUMMARY | 2024-09-08 22:46 | XMS_ITS | Encounter Summary ---
Author Organization [facility] Address [address] [place] [address] Care Team Providers Care Welding Machine Setter Name Role Phone Mike Day MD Primary Care Provider [phone] [phone] Encounter Details Date Type Department Care Team (Latest Contact Info) Description 02/18/2006 Outpatient Historical [facility] Medicine [place] [address] [address] Nirmal Thacker MD NO ADDRESS ON FILE Unspecified Essential Hypertension (Primary Dx); Other and Unspecified Hyperlipidemia; Encounter for Long-Term (Current) Use of Other Medications; Family History of Diabetes Mellitus Social History Tobacco Use Types Packs/Day Years Used Date Smoking Tobacco: Never Assessed Comments Unknown Sex and Gender Information Value Date Recorded Sex Assigned at Not on file Legal Sex Female 2:52 AM HEALTH AND HUMAN PERFORMANCE PROFESSOR Gender Identity Not on file Sexual Orientation Not on file documented as of this encounter Plan of Treatment Not on file documented as of this encounter Visit Diagnoses Diagnosis Unspecified essential hypertension- Primary Other and unspecified hyperlipidemia Encounter for long-term (current) use of other medications Family history of diabetes mellitus documented in this encounter Care Teams Welding Machine Setter Relationship Specialty Start Date End Date Mike Day MD [address] [address] PCP - General Family Practice 09/17/16 documented as of this encounter
--- OUTSIDE RECORDS SUMMARY | 2024-09-08 22:46 | XMS_ITS | Encounter Summary ---
Author Organization [facility] Address [address] [place] [address] Care Team Providers Care Structural Steel Ironworker Name Role Phone Mike Day MD Primary Care Provider [phone] [phone] Encounter Details Date Type Department Care Team (Latest Contact Info) Description 09/08/2004 Outpatient Historical [facility] Family Medicine [place] [address] [address] Nirmal Galna MD [address] [facility] [address] [place] [address] ALLERGY, UNSPECIFIED (Primary Dx); HYPERTENSION NOS Social History Tobacco Use Types Packs/Day Years Used Date Smoking Tobacco: Never Assessed Comments Unknown Sex and Gender Information Value Date Recorded Sex Assigned at Not on file Legal Sex Female 2:52 AM FABRICATION AND ASSEMBLY SUPERVISOR Gender Identity Not on file Sexual Orientation Not on file documented as of this encounter Plan of Treatment Not on file documented as of this encounter Visit Diagnoses Diagnosis Allergy, unspecified not elsewhere classified- Primary Unspecified essential hypertension documented in this encounter Care Teams Structural Steel Ironworker Relationship Specialty Start Date End Date Mike Day MD [address] [address] PCP - General Family Practice 09/17/16 documented as of this encounter
--- OUTSIDE RECORDS SUMMARY | 2024-09-08 22:46 | XMS_ITS | Encounter Summary ---
Author Organization [facility] Address [address] [place] [address] Care Team Providers Care Orthopaedic Surgeon Name Role Phone Mike Day MD Primary Care Provider [phone] Encounter Details Date Type Department Care Team (Latest Contact Info) Description 06/02/2001 Outpatient Historical [facility] Family Medicine [address] [address] Nirmal Galan MD [address] [facility] [address] [place] [address] HYPERLIPIDEMIA NEC/NOS (Primary Dx); HYPERTENSION NOS Social History Tobacco Use Types Packs/Day Years Used Date Smoking Tobacco: Never Assessed Comments Unknown Sex and Gender Information Value Date Recorded Sex Assigned at Not on file Legal Sex Female 2:52 AM SUPERVISOR LINE DEPARTMENT Gender Identity Not on file Sexual Orientation Not on file documented as of this encounter Plan of Treatment Not on file documented as of this encounter Visit Diagnoses Diagnosis Other and unspecified hyperlipidemia- Primary Unspecified essential hypertension documented in this encounter Care Teams Orthopaedic Surgeon Relationship Specialty Start Date End Date Mike Day MD [address] [address] PCP - General Family Practice 09/17/16 documented as of this encounter
[2024-09-09 01:00] VITALS: BP 179/61; PULSE 72; RESP 16; O2SAT 95
[2024-09-09 02:00] VITALS: BP 159/69; PULSE 75; RESP 15; O2SAT 97
[2024-09-09 03:08] VITALS: BP 156/63; PULSE 78; RESP 16; O2SAT 98
== END 2024-09-09 02:40 | disposition home or self-care (01) ==
PROVIDERS: Emergency Provider Nurse Practitioner; PCP Family Medicine
DX: M25.552 Pain in left hip (principal); W19.XXXA Unspecified fall, initial encounter; Z79.82 Long term (current) use of aspirin; Z72.0 Tobacco use; I10 Essential (primary) hypertension; Z86.73 Personal history of transient ischemic attack (TIA), and cerebral infarction without residual deficits
CPT/HCPCS: 73502; 96374; 99284; J1885; J9999

== ENCOUNTER 2024-09-11 14:01 | Outpatient (CLI) | payer MEDICARE, SELFPAY ==
--- NOTE | 2024-09-11 14:06 | PETR_ITS ---
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 Then, PET images were obtained. Attenuation corrected images were constructed using the CT scan. Fused images of PET and CT were reviewed. The standardized uptake values (SUV) reported below are maximum values within a region of interest, expressed in gm/ml. Exam includes orbital meatal line to mid-thigh. SUV normalization method: BodyWeight Radiopharmaceutical: 9.97 mCi F-18 FDG (Fluorodeoxyglucose), IV. Time of imaging post radiopharmaceutical administration: 48 minutes Injection site: right ac COMPARISON: 1. CT head wo con* [id number] 03/26/2022 8:[address] head wo con* [id number] 05/20/2024 11:[address] abdomen pelvis wo con [id number] 05/20/2024 4:[address] Chest w IV contrast* [id number] 02/28/2017 5:51 PM 5. CR (PELVIS, ) 09/08/2024 10:57 PM FINDINGS: Limitations: There appears to be extravasation of most of the radiotracer along the right upper extremity, significantly decreasing bioavailability and sensitivity. Brain: Chronic right occipital lobe infarct. No abnormal uptake. Pharynx: No abnormal uptake. Larynx: No abnormal uptake. Lungs, pleura and trachea: No abnormal uptake. Advanced upper lung predominant emphysematous change. Stable 6 mm left upper lobe nodule on axial image 433. Stable 1.5 cm left lower lobe nodule on axial image 404. Mild bibasilar subsegmental atelectasis and/or scarring. Moderate left and small right pleural effusions. Heart: Normal physiologic uptake. Moderate pericardial effusion appears similar to slightly increased from May 2024. Coronary arteries: Heavy coronary artery calcification. Mediastinal space: No abnormal uptake. Liver: No abnormal uptake. Gallbladder and biliary ducts: No abnormal uptake. Pancreas: No abnormal uptake. Spleen: No abnormal uptake. Adrenal glands: No abnormal uptake. Kidneys and ureters: Right renal atrophy. Normal physiologic uptake on the left when allowing for significantly decreased bioavailability. Indeterminate bilateral renal lesions redemonstrated without FDG avidity. Stomach and bowel: No abnormal uptake. Colonic diverticulosis without findings of diverticulitis. Vasculature: No abnormal uptake. Heavy systemic atherosclerotic calcification with stable ascending aortic ectasia measuring 4.3 cm. Lymph nodes: FDG uptake at multiple nonenlarged right axillary lymph nodes attributed to radiotracer extravasation. Otherwise no suspicious lymphadenopathy in the head, neck, chest, abdomen, pelvis, and extremities. Skeleton: No abnormal uptake in the visualized axial and appendicular skeleton. Diffuse bony demineralization with chronic appearing left pelvic fracture deformities and left femur intramedullary nail and screw fixation. [place] proximal left tibial metaphysis sclerosis compatible with bone infarct. Degenerative change along the axial skeletal system, shoulders and hips. Soft tissues: No abnormal uptake in the visualized head, neck, chest, abdomen, pelvis, and extremities. Grossly stable heterogeneously calcified non FDG avid 3.6 x 2.3 cm exophytic high right parietal scalp lesion in keeping with benignity. Diffuse subcutaneous edema. METRICS: Mediastinal blood pool: SUV mean 1.0 Liver uptake: SUV mean 1.2 PET/PET WB melanoma INITIAL [id number] IMPRESSION: 1. Extravasation of most of the radiotracer along the right upper extremity significantly decreases bioavailability and sensitivity. FDG uptake at multiple nonenlarged right axillary lymph nodes attributed to this finding. 2. Left lung nodules stable from 2017 in keeping with benignity. No right lung mass or nodule. 3. Moderate left and small right pleural effusions. 4. Moderate pericardial effusion similar to slightly increased from May 2024. 5. Indeterminate bilateral renal lesions. Recommend renal ultrasound if not already performed. 6. Left proximal tibial metaphysis bone infarct. 7. Additional chronic and incidental findings as above, to include atherosclerosis with heavy coronary artery calcification.
== END 2024-09-11 14:02 | disposition home or self-care (01) ==
LOC: RAD 14:02
PROVIDERS: PCP Family Medicine; Visit Provider Electrodiagnostic Medicine
DX: C78.01 Secondary malignant neoplasm of right lung (principal); N28.9 Disorder of kidney and ureter, unspecified
CPT/HCPCS: 78815; 78816; A9552

== ENCOUNTER 2024-12-01 18:58 | Emergency (ER) | payer MEDICARE, SELFPAY ==
[2024-12-01 18:57] VITALS: BP 175/108; PULSE 84; RESP 18; TEMP 36.7; O2SAT 90; BMI 15.9
--- NOTE | 2024-12-01 18:59 | XRR_ITS ---
PROCEDURE INFORMATION: Exam: XR Chest Exam date and time: 12/01/2024 7:02 PM Age: 84 years old Clinical indication: Shortness of breath TECHNIQUE: Imaging protocol: Radiologic exam of the chest. Views: 1 view. COMPARISON: CT Chest w IV contrast* [id number] 02/28/2017 5:51 PM FINDINGS: Lungs: Left basal atelectasis. Pleural spaces: Left pleural effusion. There is no pneumothorax. Heart/Mediastinum: There is cardiomegaly. Bones/joints: No acute osseous abnormality. There is degenerative disease of the spine. Intraperitoneal space: There is no free intraperitoneal gas. XR/XR chest 1V portable [id number] IMPRESSION: Left pleural effusion with left basal atelectasis.
--- NOTE | 2024-12-01 19:01 | W.ED.SOB ---
HPI - SOB/Dyspnea General: Chief Complaint: Shortness of Breath/Dyspnea Stated Complaint: Decreased LOC History of Present Illness: HPI Narrative: 84-year-old female who presents emergency room by ambulance with concerns for shortness of breath. EMS said that the custodial had checked her pulse ox with nail nigerian on and when they took it off her O2 sats were fine. She appears to be at her baseline mental status. Tacky oral mucosa. Patient not currently complaining of shortness of breath Related Data Home Medications ?Medication ?Instructions ?Recorded ?Confirmed amlodipine 10 mg tablet 10 mg PO DAILY 03/19/22 05/20/24 atorvastatin 20 mg tablet 20 mg PO BEDTIME 03/19/22 05/20/24 fluticasone propionate 50 2 spray intranasal DAILY PRN Nasal 03/19/22 05/20/24 mcg/actuation nasal Congestion spray,suspension aspirin 325 mg tablet 325 mg PO QPM 05/20/24 05/20/24 bisacodyl 10 mg rectal suppository 10 mg DE DAILY PRN Constipation 05/20/24 05/20/24 (Dulcolax (bisacodyl)) bisacodyl 5 mg tablet,delayed 10 mg PO DAILY PRN Constipation 05/20/24 05/20/24 release (Dulcolax (bisacodyl)) calcium acetate(phosphat bind) 667 1,334 mg PO TID 05/20/24 05/20/24 mg capsule cetirizine 5 mg tablet 5 mg PO DAILY 05/20/24 05/20/24 cholecalciferol (vitamin D3) 10 10 mcg PO DAILY 05/20/24 05/20/24 mcg (400 unit) chewable tablet (Vitamin D3) donepezil 5 mg tablet 5 mg PO QPM 05/20/24 05/20/24 magnesium hydroxide 400 mg/5 mL 30 ml PO DAILY PRN Constipation 05/20/24 05/20/24 oral suspension (Milk of Magnesia) mirtazapine 7.5 mg tablet 7.5 mg PO DAILY 05/20/24 05/20/24 multivitamin 1 tab PO DAILY 05/20/24 05/20/24 pantoprazole 40 mg tablet,delayed 40 mg PO DAILY 05/20/24 05/20/24 release polyethylene glycol 3350 17 17 g PO BID 03/19/25 03/19/25 gram/dose oral powder sennosides 8.6 mg-docusate sodium 1 tab-cap PO BID 05/20/24 05/20/24 50 mg tablet wheat dextrin 5 gram/7.4 gram oral 3 g PO BID 05/20/24 05/20/24 powder (Benefiber Healthy Shape) Previous Rx's ?Medication ?Instructions ?Recorded hydralazine 25 mg tablet 25 mg PO TID #90 tabs 05/25/24 potassium chloride 10 mEq 10 meq PO DAILY #30 caps 05/25/24 capsule,extended release quetiapine 25 mg tablet 12.5 mg (1/2 x 25 mg) PO BEDTIME 05/25/24 #30 tabs tizanidine 2 mg tablet 2 mg PO Q8H PRN muscle spasticity 09/09/24 #20 tabs Allergies Allergy/AdvReac Type Severity Reaction Status Date / Time No Known Allergies Allergy Unverified 05/09/22 11:44 Review of Systems Narrative: Constitutional symptoms: Negative except as documented in HPI. Skin symptoms: Negative except as documented in HPI. Eye symptoms: Negative except as documented in HPI. ENMT symptoms: Negative except as documented in HPI. Respiratory symptoms: Negative except as documented in HPI. Cardiovascular symptoms: Negative except as documented in HPI. Gastrointestinal symptoms: Negative except as documented in HPI. Genitourinary symptoms: Negative except as documented in HPI. Musculoskeletal symptoms: Negative except as documented in HPI. Neurologic symptoms: Negative except as documented in HPI. Psychiatric symptoms: Negative except as documented in HPI. Endocrine symptoms: Negative except as documented in HPI. [facility] ED PFSH: Medical History (Updated 12/01/24 @ 20:04 by Selina Dunne MD) History of CVA (cerebrovascular accident) Multiple pelvic fractures Fracture of left hip requiring operative repair Tibia fracture HTN (hypertension) CVA (cerebral vascular accident) Surgical History H/O right wrist surgery H/O: hysterectomy Family History Other Diabetes Hypertension Social History Smoking and tobacco/nicotine status: current every day tobacco/nicotine user Physical Exam Narrative: EXAM NARRATIVE: General: Alert, no acute distress. Skin: Warm, dry. Head: Normocephalic, atraumatic. Neck: Supple, trachea midline. Eye: Extraocular movements are intact. Ears, nose, mouth and throat: mucosa moist. Cardiovascular: Regular, Normal peripheral perfusion. Respiratory: Lungs are clear to auscultation, respirations are non-labored, breath sounds are equal, Symmetrical chest wall expansion. Gastrointestinal: Soft, Nontender, Non distended Musculoskeletal: Normal ROM, no deformity. Neurological: Alert and oriented, No focal neurological deficit observed. Psychiatric: Cooperative, appropriate mood & affect. Course Vital Signs: Vital signs: Vital Signs Temperature 98.1 F 12/01/24 18:57 Pulse Rate 84 12/01/24 18:57 Respiratory Rate 18 12/01/24 18:57 Blood Pressure 175/108 12/01/24 18:57 Pulse Oximetry 90 12/01/24 18:57 Oxygen Delivery Me thod Room Air 12/01/24 18:57 MDM - SOB/Dyspnea Medical Decision Making Differential diagnosis for patient with shortness of breath includes but is not limited to and based on the above HPI, review of systems and physical exam: Pneumonia. Bronchitis. Asthma or COPD with acute exacerbation. Acute coronary syndrome / OK. Pulmonary embolism. Anxiety. Congestive heart failure. Viral infections including influenza and Covid-19. Atrial fibrillation. Anxiety. Pleural effusion. Pneumothorax. Orders placed to evaluate differential diagnosis based on the above differential, HPI and physical exam Chest x-ray: No acute process. No infiltrate. No pneumothorax. This was reviewed and interpreted by myself the emergency room physician. I also reviewed the radiology report. Lab Review: Laboratory results were reviewed and interpreted by myself the emergency room physician. No leukocytosis. Stable anemia. BUN and creatinine are somewhat elevated over baseline at 34 and 2.5. She is usually around 1.2. Consultation: I spoke with the hospitalist on-call Dr. Plasencia and he recommends 1 L normal saline bolus and discharge back to the custodial with encouragement for hydration. I reviewed the patient's medical record. Reexamination: Patient remained stable. No increased work of breathing. No altered mental status. No focal motor deficits. Assessment and plan: Dehydration Acute on chronic renal insufficiency ?Normal saline bolus in the emergency room - Discharged home - Discussed plan with patient. Answered any questions. - Evaluation and treatment of this problem were appropriate in the emergency setting. Lab Data 12/01/24 19:29 12/01/24 19:29 Labs/Radiology: Laboratory Results WBC 5.61 10^3/uL (3.29-11.43) 12/01/24 19: RBC 3.09 10^6/uL (3.85-5.65) L 12/01/24 19: Hgb 9.70 g/dL (11.27-16.99) L 12/01/24 19: Hct 30.5 % (36-47) L 12/01/24 19: MCV 98.7 fl (85-98) H 12/01/24 19: MCH 31.4 pg (27-33) 12/01/24 19: MCHC 31.8 g/dL (30-55) 12/01/24 19: RDW 14.3 % (12.1-15.1) 12/01/24 19: Plt Count 249 10^3/cmm (157-399) 12/01/24 19: MPV 10.5 fL (7.4-10.4) H 12/01/24 19: Neut % (Auto) 84.3 % 12/01/24 19: Lymph % (Auto) 11.8 % 12/01/24: [place] % (Auto) 2.7 % 12/01/24: Eos % (Auto) 0.5 % 12/01/24: Baso % (Auto) 0.5 % 12/01/24: Neut # (Auto) 4.73 10^3/uL (1.8-7.7) 12/01/24: Lymph # (Auto) 0.7 10^3/uL (0.8-4.8) L 12/01/24 19: [place] # (Auto) 0.2 10^3/uL (0.2-0.9) 12/01/24: Eos # (Auto) 0.0 10^3/uL (0.0-0.8) 12/01/24: Baso # (Auto) 0.0 10^3/uL (0.0-0.1) 12/01/24: Nucleated RBC % (auto) 0 % 12/01/24 19:29 Nucleated RBCs # 0.0 /100WBC 12/01/24 19:29 Sodium 137 mmol/L (136-145) 12/01/24 19:29 Potassium 4.6 mmol/L (3.5-5.1) 12/01/24 19:29 Chloride 107 mmol/L (98-107) 12/01/24 19:29 Carbon Dioxide 19 mmol/L (22-29) L 12/01/24 19:29 Anion Gap 15.6 (5-19) 12/01/24 19:29 BUN 34 mg/dL (8-23) H 12/01/24 19:29 Creatinine 2.5 mg/dL (0.5-0.9) H 12/01/24 19:29 GFR Calculation Not Reportable 12/01/24 19:29 Glucose 109 mg/dL (65-115) 12/01/24 19:29 Calculated Osmolality 292 mOsm/kg (285-295) 12/01/24 19:29 Calcium 9.2 mg/dL (8.5-10.5) 12/01/24 19:29 Total Bilirubin 0.4 mg/dL (0.15-1.2) 12/01/24 19:29 AST 18 U/L (0-32) 12/01/24 19:29 ALT 6 U/L (0-33) 12/01/24 19:29 Alkaline Phosphatase 61 U/L (35-105) 12/01/24 19:29 Total Protein 6.4 g/dL (6.6-8.7) L 12/01/24 19:29 Albumin 3.4 g/dL (3.5-5.2) L 12/01/24 19:29 Globulin 3.0 g/dL (1.3-4.6) 12/01/24 19:29 All radiology interpretation(s) finalized by discharge Discharge Plan Discharge Patient Disposition: Home Clinical Impression: Acute on chronic renal insufficiency Condition: Stable Prescriptions: No Action multivitamin Tablet 1 tab PO DAILY donepezil 5 mg tablet 5 mg PO QPM aspirin 325 mg Tablet 325 mg PO QPM cetirizine 5 mg Tablet 5 mg PO DAILY sennosides-docusate sodium 8.6-50 mg Tablet 1 tab-cap PO BID magnesium hydroxide [Milk of Magnesia] 400 mg/5 mL Suspension 30 ml PO DAILY PRN (Reason: Constipation) bisacodyl [Dulcolax (bisacodyl)] 10 mg Suppository 10 mg DE DAILY PRN (Reason: Constipation) pantoprazole 40 mg tablet,delayed release (DR/EC) 40 mg PO DAILY bisacodyl [Dulcolax (bisacodyl)] 5 mg Tablet,Delayed Release (Dr/Ec) 10 mg PO DAILY PRN (Reason: Constipation) polyethylene glycol 3350 17 gram/dose Powder 17 g PO BID mirtazapine 7.5 mg tablet 7.5 mg PO DAILY calcium acetate(phosphat bind) 667 mg capsule 1,334 mg PO TID cholecalciferol (vitamin D3) [Vitamin D3] 10 mcg (400 unit) Tablet,Chewable 10 mcg PO DAILY Benefiber Healthy Shape 5 gram/7.4 gram Powder 3 g PO BID tizanidine 2 mg tablet 2 mg PO Q8H PRN (Reason: muscle spasticity) Qty: 20 0RF atorvastatin 20 mg tablet 20 mg PO BEDTIME amlodipine 10 mg tablet 10 mg PO DAILY fluticasone propionate 50 mcg/actuation spray,suspension 2 spray INTRANASAL DAILY PRN (Reason: Nasal Congestion) quetiapine 25 mg Tablet 12.5 mg PO BEDTIME Qty: 30 0RF hydralazine 25 mg tablet 25 mg PO TID Qty: 90 0RF potassium chloride 10 mEq capsule, extended release 10 meq PO DAILY Qty: 30 0RF Discharge Orders: Discharge ED (Routine); Ordered 12/01/24 Ordered By: Selina Dunne Referrals: Mike Day [Primary Care Provider, Family Practice] Discharge Diet: Usual diet Discharge Activity: Increase activity as tolerated Patient Instructions: Opioid Safety, Pain Management, Patient Portal & Alfonso Instructions Activity Restrictions/Additional Instructions: Thank you for choosing [facility] for your healthcare needs today. You have been screened and evaluated and felt safe for discharge. Health conditions do change or evolve sometimes and as such it is important that you follow up with your Primary Doctor to be re checked, 3-5 days is a general good time frame for follow up. You are always welcome to return to the ED for re assessment if your symptoms are worsening or you have new concerns Print Language: Cuban Coding Level of Care Code ED Hotel Reservation Agent for Fracisco Cortez
[2024-12-01 19:38] LABS: Hematocrit 30.5 % (36-47); Hemoglobin 9.70 g/dL (11.27-16.99); Mean Corpuscular HGB Conc 31.8 g/dL (30-55); Mean Corpuscular Hemoglobin 31.4 pg (27-33); Mean Corpuscular Volume 98.7 fl (85-98); Nucleated Red Blood Cells % 0 %; Platelet Count 249 10^3/cmm (157-399); Red Blood Count 3.09 10^6/uL (3.85-5.65); White Blood Count 5.61 10^3/uL (3.29-11.43)
--- OUTSIDE RECORDS SUMMARY | 2024-12-01 19:38 | XMS_ITS | Clinical Summary ---
Author Organization [facility] Address [address] [place] [address] [address] [place] [address] Care Team Providers Care Steno Typist Name Role Phone Mike Day MD Primary Care Provider [phone] Allergies Active Allergy Reactions Criticality Noted Date [...] BandageIndications: Pressure injury of sacral region, unstageable Change bandage daily 30 Each 1 3 [...] 4 Active fluticasone propionate (FLONASE) 50 mcg/spray [place], Suspension nasal inhalerIndications: Seasonal allergic rhinitis, unspecified [...] mg tabletIndications:P ressure injury of coccygeal region, unstageable,Duodena l ulcer perforation Take 1 Tablet (5 mg) by mouth [...] Everything Hyperlipidemia 02/05/2008 Overview (06/30/2020): HDL: 96 (08/14); 70 (9/); 81 (8/11); 65 (3/11); 83 (9/10) LDL: [...] Overview (06/29/2020): Mammo: 02/11; 01/11; 12/10; 02/07 Immunizations Immunization Administration Dates Next Due (ADACEL/BOOSTRIX)(10 [...] Never 10/02/2019 How often do you attend sikhism or sikhism serv ices? 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 Gender Identity Not on file Sexual Orientation [...] series) 2016 OSTEOPOROSIS SCREENING 04/24/2022 04/24/2017, 2017 Medicare Advantage ([place]) Preventative Visit/Annual Wellness Visit 03/04/2024 08/31/2022, 08/21/2021, 10/16/2010 INFLUENZA VACCINE (#1) 2024 , 11/25/2019, 12/15/2018, Additional history exists COVID-19 Vaccine (4 - 2024-2 6 season) 2024 01/05/2022, 06/20/2020, 05/23/2020 DTAP/TDAP/TD VACCINES (2 - T d or Tdap) 09/25/2032 09/25/2022, 10/16/2010 Procedures Procedure Name Priority Date/Time Associated Diagnosis Comments XR DEXA BONE DENSITY AXIAL 1 OR MORE SITES Routine 04/24/2017 1:42 PM ELECTRICIANS TOP HELPER Postmenopausal History of hip fracture from Last 3 Months or Most Recently Relevant to Health Maintenance Results * XR DEXA BONE DENSITY AXIAL 1 OR MORE SITES (04/24/2017 1:42 PM ELECTRICIANS TOP HELPER) Anatomical Region Laterality Modality Other Impressions 04/24/2017 1:50 PM ELECTRICIANS TOP HELPER Abnormal examination Bone density lies in the [...] clinical management available online at [email or web address].ac.uk/[email or web address] Enter rubberit for Select DXA and the total hip BMD value as it will provide a more accurate assessment of fracture risk. Also consider remeasuring no sooner than 2 years only as clinically needed. Narrative 04/24/2017 1:50 PM ELECTRICIANS TOP HELPER DEXA Evaluation of the Lumbar Spine and [...] clinical management available online at [email or web address].ac.[email or web address] Enter rubberit for Select DXA and the total hip BMD value as it will provide a more accurate assessment of fracture risk. Also consider remeasuring no sooner than 2 years only as clinically needed. Mike Day MD DIAGNOSTIC IMAGING ORDERA BLES Final Result from Last 3 Months or Most Recently Relevant to Health Maintenance Insurance [address] [place] [address] [facility] DUAL COMPLETE PPO DSNP [facility] [id number] Advance Directives For more information, please contact: [phone] * Full Code (Latest Code Status on File) Date Activated Date Inactivated Comments 06/28/2023 5:20 AM 07/19/2023 6:44 PM * Full Code Date Activated Date Inactivated Comments 03/02/2023 8:17 PM 03/03/2023 3:49 PM Care Teams Steno Typist Relationship Specialty Start Date End Date Mike Day MD [address] [phone] PCP - General Family Practice 09/17/16
--- OUTSIDE RECORDS SUMMARY | 2024-12-01 19:38 | XMS_ITS | Clinical Summary ---
Author Organization [facility] Address [address] [address] Care Team Providers Care Consultant In Ergonomics And Safety Name Role Phone Mike Day MD Primary Care Provider [phone] Social History Tobacco Use Types Packs/Day Years Used Date Smoking Tobacco: Never Assessed Comments Unknown Sex and Gender Information Value Date Recorded Sex Assigned at Not on file Legal Sex Female 1:41 PM EDT Gender Identity Not on file Sexual Orientation Not on file Plan of Treatment Health Maintenance Due Date Last Done Comments Pneumococcal Vaccine: 50+ Years (3 of 3 - PCV) 11/21/2021 11/21/2020, 01/16/2007 Influenza Vaccine (#1) 2024 9, 12/04/2012, 11/19/2011, Additional history exists Hepatitis B Vaccine Aged Out No longe r eligible based on patient's age to complete this topic Insurance [facility] Medicare Care Teams Consultant In Ergonomics And Safety Relationship Specialty Start Date End Date Mike Day MD [address] [address] PCP - General Family Medicine 07/03/23
--- OUTSIDE RECORDS SUMMARY | 2024-12-01 19:38 | XMS_ITS | Encounter Summary ---
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
--- OUTSIDE RECORDS SUMMARY | 2024-12-01 19:39 | XMS_ITS | Encounter Summary ---
Author Organization [facility] Address [address] [place] [address] Care Team Providers Care Geospatial Technician Name Role Phone Mike Day MD Primary Care Provider +1 [phone] Encounter Details Date Type Department Care Team (Latest Contact Info) Description 06/02/2001 Outpatient Historical [facility] Family Medicine [place] [address] [address] Nirmal Galan MD [address] [facility] [address] [place] [address] HYPERLIPIDEMIA NEC/NOS (Primary Dx); HYPERTENSION NOS Social History Tobacco Use Types Packs/Day Years Used Date Smoking Tobacco: Never Assessed Comments Unknown Sex and Gender Information Value Date Recorded Sex Assigned at Not on file 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
--- OUTSIDE RECORDS SUMMARY | 2024-12-01 19:39 | XMS_ITS | Encounter Summary ---
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
--- OUTSIDE RECORDS SUMMARY | 2024-12-01 19:39 | XMS_ITS | Encounter Summary ---
Author Organization [facility] Address [address] [place] [address] Care Team Providers Care Technician Semiconductor Development Name Role Phone Mike Day MD Primary Care Provider +1 [phone] Encounter Details Date Type Department Care Team (Latest Contact Info) Description 08/16/2000 Outpatient Historical [facility] Family Medicine [place] [address] [address] Nirmal Galan MD [address] [facility] 200 [place] [address] Unspecified essential hypertension (Primary Dx); Other and unspecified hyperlipidemia Social History Tobacco Use Types Packs/Day Years Used Date Smoking Tobacco: Never Assessed Comments Unknown Sex and Gender Information Value Date Recorded Sex Assigned at Not on file 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
--- OUTSIDE RECORDS SUMMARY | 2024-12-01 19:39 | XMS_ITS | Encounter Summary ---
Author Organization [facility] Address [address] [place] [address] Care Team Providers Care Rn Observation Name Role Phone Mike Day MD Primary Care Provider +1 [phone] Encounter Details Date Type Department Care Team (Latest Contact Info) Description 08/10/1998 Outpatient Historical [facility] Medicine [place] [address] [phone] Devi Mack NO ADDRESS ON FILE Chronic airway obstruction, not elsewhere classified (CMS/HCC) (Primary Dx); Pure hypercholesterolem; Unspecified essential hypertension Social History Tobacco Use Types Packs/Day Years Used Date Smoking Tobacco: Never Assessed Comments Unknown Sex and Gender Information Value Date Recorded Sex Assigned at Not on file 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 Gender Identity Not on file Sexual Orientation Not on file documented as of this encounter Plan of Treatment Not on file documented as of this encounter Visit Diagnoses Diagnosis Chronic airway obstruction, not elsewhere classified (CMS/HCC)- Primary Chronic airway obstruction, not elsewhere classified Pure hypercholesterolem Pure hypercholesterolemia Unspecified essential hypertension documented in this encounter Care Teams Rn Observation Relationship Specialty Start Date End Date Mike Day MD [address] [phone] PCP - General Family Practice 09/17/16 documented as of this encounter
--- OUTSIDE RECORDS SUMMARY | 2024-12-01 19:39 | XMS_ITS | Clinical Summary ---
Author Organization [facility] Address [address] [facility] [address] [place] [address] Care Team Providers Care Violent Crimes Detective Name Role Phone Mike Day MD Primary Care Provider [phone] [phone] Allergies No known active allergies Medications ZYRTEC [...] 0 Active fluticasone propionate (FLONASE) 50 mcg/spray [place], Suspension nasal inhalerIndications :Seasonal allergic rhinitis, unspecified [...] 04/16/2017 Assessment & Plan (04/16/2017 7:56 PM BEAM DOFFER): 4.1 cm Pulmonary nodules 04/16/2017 Cigarette dependence [...] Never 10/02/2019 How often do you attend rastafarian or tenriism serv ices? Never 10/02/2019 Do you belong to any clubs o r organizations such as rastafarian groups, unions, fraternal or athletic groups, or [...] on file Legal Sex Female 2:52 AM BEAM DOFFER Gender Identity Not on file Sexual Orientation [...] 75+ series) 2016 OSTEOPOROSIS SCREENING 04/24/2022 04/24/2017 [place] Preventative Visit/Annual Wellness Visit 03/04/2024 10/02/2019, 03/03/2019, 08/30/2017, Additional history exists INFLUENZA VACCINE (#1) 2024 , 12/15/2018, 12/15/2018, Additional history exists COVID-19 Vaccine (3 - 2024-2 6 season) 2024 06/20/2020, 05/23/2020 Colorectal Cancer Screening Discontinued FIT/FOBT Q 1 year Discontinued 08/24/1999 COLORECTAL SCREENING Discontinued FIT-DNA Q 3 years Discontinued Flex Sig/CT Colonography Q 5 years Discontinued Procedures Procedure Name Priority Date/Time Associated Diagnosis Comments XR DEXA BONE DENSITY AXIAL 1 OR MORE SITES Routine 04/24/2017 1:42 PM BEAM DOFFER Postmenopausal, Sugical (1970s) History of hip fracture from Last 3 Months or Most Recently Relevant to Health Maintenance Results * XR DEXA BONE DENSITY AXIAL 1 OR MORE SITES (04/24/2017 1:42 PM BEAM DOFFER) Anatomical Region Laterality Modality Digital Radiogra phy 04/24/2017 1:44 PM BEAM DOFFER Impressions 04/24/2017 1:50 PM BEAM DOFFER IMPRESSION: Abnormal examination Bone density lies in [...] clinical management available online at www.shef.ac.uk/FRAX/. Enter Tomorrow for Select DXA and the total hip BMD value as it will provide a more accurate assessment of fracture risk. Also consider remeasuring no sooner than 2 years only as clinically needed. Narrative 04/24/2017 1:50 PM BEAM DOFFER DEXA Evaluation of the Lumbar Spine and [...] clinical management available online at www.shef.ac.uk/FRAX/. Enter Tomorrow for Select DXA and the total hip BMD value as it will provide a more accurate assessment of fracture risk. Also consider remeasuring no sooner than 2 years only as clinically needed. Mike Day MD DIAGNOSTIC IMAGING ORDERA BLES Final Result from Last 3 Months or Most Recently Relevant to Health Maintenance Insurance [address] [place] [address] [facility] Care Teams Violent Crimes Detective Relationship Specialty Start Date End Date Mike Day MD [address] [phone] PCP - General Family Practice 09/17/16
--- OUTSIDE RECORDS SUMMARY | 2024-12-01 19:39 | XMS_ITS | Encounter Summary ---
Author Organization [facility] Address [address] [place] [address] Care Team Providers Care Driver License Reviewing Officer Name Role Phone Mike Day MD Primary Care Provider [phone] [phone] Encounter Details Date Type Department Care Team (Latest Contact Info) Description 08/24/1999 Outpatient Historical [facility] Medicine [place] [address] [phone] Devi Mack NO ADDRESS ON FILE Allergic rhinitis, cause unspecified (Primary Dx); Unspecified essential hypertension; Other and unspecified hyperlipidemia; Screening for malignant neoplasm of the oral cavity Social History Tobacco Use Types Packs/Day Years Used Date Smoking Tobacco: Never Assessed Comments Unknown Sex and Gender Information Value Date Recorded Sex Assigned at Not on file 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
--- OUTSIDE RECORDS SUMMARY | 2024-12-01 19:39 | XMS_ITS | Encounter Summary ---
Author Organization [facility] Address [address] [place] [address] Care Team Providers Care Booster Assembler Name Role Phone Mike Day MD Primary Care Provider [phone] [phone] Encounter Details Date Type Department Care Team (Latest Contact Info) Description 01/16/2007 Outpatient Historical [facility] Medicine [place] [address] [address] Sandeep Daugherty MD NO ADDRESS ON FILE Unspecified Essential Hypertension (Primary Dx); Other and Unspecified Hyperlipidemia; Other Conjunctivitis; Vaccin Strep Pneumoniae Social History Tobacco Use Types Packs/Day Years Used Date Smoking Tobacco: Never Assessed Comments Unknown Sex and Gender Information Value Date Recorded Sex Assigned at Not on file 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 Gender Identity Not on file Sexual Orientation Not on file documented as of this encounter Plan of Treatment Not on file documented as of this encounter Visit Diagnoses Diagnosis Unspecified essential hypertension- Primary Other and unspecified hyperlipidemia Other conjunctivitis Need for prophylactic vaccination against Streptococcus pneumoniae (pneumococcus) Need for prophylactic vaccination against streptococcus pneumoniae (pneumococcus) documented in this encounter Care Teams Booster Assembler Relationship Specialty Start Date End Date Mike Day MD [address] [phone] PCP - General Family Practice 09/17/16 documented as of this encounter
--- OUTSIDE RECORDS SUMMARY | 2024-12-01 19:39 | XMS_ITS | Encounter Summary ---
Author Organization [facility] Address [address] [place] [address] Care Team Providers Care Information Director Name Role Phone Mike Day MD Primary Care Provider [phone] [phone] Encounter Details Date Type Department Care Team (Latest Contact Info) Description 01/19/1998 Outpatient Historical [facility] Family Medicine [place] [address] [address] Devi Mack NO ADDRESS ON FILE Other and unspecified hyperlipidemia (Primary Dx) Social History Tobacco Use Types Packs/Day Years Used Date Smoking Tobacco: Never Assessed Comments Unknown Sex and Gender Information Value Date Recorded Sex Assigned at Not on file 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
--- OUTSIDE RECORDS SUMMARY | 2024-12-01 19:39 | XMS_ITS | Encounter Summary ---
Author Organization [facility] Address [address] [place] [address] Care Team Providers Care Property Field Inspector Name Role Phone Mike Day MD Primary Care Provider [phone] [phone] Encounter Details Date Type Department Care Team (Latest Contact Info) Description 02/07/2001 Outpatient Historical [facility] Family Medicine [place] [address] [phone] Nirmal Galan MD [address] [facility] [address] [place] [address] HYPERTENSION NOS (Primary Dx); DIABETES UNCOMPL ADULT-TYPE II (CMS/HCC) Social History Tobacco Use Types Packs/Day Years Used Date Smoking Tobacco: Never Assessed Comments Unknown Sex and Gender Information Value Date Recorded Sex Assigned at Not on file 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
--- OUTSIDE RECORDS SUMMARY | 2024-12-01 19:39 | XMS_ITS | Encounter Summary ---
Author Organization [facility] Address [address] [place] [address] Care Team Providers Care Airline Security Representative Name Role Phone Mike Day MD Primary Care Provider [phone] [phone] Encounter Details Date Type Department Care Team (Latest Contact Info) Description 09/08/2004 Outpatient Historical [facility] Family Medicine [place] [address] [address] Nirmal Galan MD [address] [facility] [address] [place] [address] ALLERGY, UNSPECIFIED (Primary Dx); HYPERTENSION NOS Social History Tobacco Use Types Packs/Day Years Used Date Smoking Tobacco: Never Assessed Comments Unknown Sex and Gender Information Value Date Recorded Sex Assigned at Not on file Legal Sex Female 2:52 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
--- OUTSIDE RECORDS SUMMARY | 2024-12-01 19:39 | XMS_ITS | Encounter Summary ---
Author Organization [facility] Address [address] [place] [address] Care Team Providers Care Ski Binding Fitter And Repairer Name Role Phone Mike Day MD Primary Care Provider [phone] [phone] Encounter Details Date Type Department Care Team (Latest Contact Info) Description 11/07/2001 Outpatient Historical [facility] Family Medicine [place] [address] [address] Nirmal Galan MD [address] [facility] [address] [place] [address] HYPERTENSION NOS (Primary Dx); Toxic effect venom Social History Tobacco Use Types Packs/Day Years Used Date Smoking Tobacco: Never Assessed Comments Unknown Sex and Gender Information Value Date Recorded Sex Assigned at Not on file 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
--- OUTSIDE RECORDS SUMMARY | 2024-12-01 19:39 | XMS_ITS | Encounter Summary ---
Author Organization [facility] Address [address] [place] [address] Care Team Providers Care Highway Painter Helper Name Role Phone Mike Day MD Primary Care Provider +1 -[phone] Encounter Details Date Type Department Care Team (Latest Contact Info) Description 03/01/2003 Outpatient Historical [facility] Family Medicine [place] [address] [address] Nirmal Galan MD [address] [facility] [address] [place] [address] HYPERTENSION NOS (Primary Dx); ALLERGY, UNSPECIFIED Social History Tobacco Use Types Packs/Day Years Used Date Smoking Tobacco: Never Assessed Comments Unknown Sex and Gender Information Value Date Recorded Sex Assigned at Not on file Legal Sex Female 2:52 AM DEVELOPMENT EXECUTIVE Gender Identity Not on file Sexual Orientation Not on file documented as of this encounter Plan of Treatment Not on file documented as of this encounter Visit Diagnoses Diagnosis Unspecified essential hypertension- Primary Allergy, unspecified not elsewhere classified documented in this encounter Care Teams Highway Painter Helper Relationship Specialty Start Date End Date Mike Day MD [address] [phone] PCP - General Family Practice 09/17/16 documented as of this encounter
[2024-12-01 19:56] LABS: Alanine Aminotransferase 6 U/L (0-33); Albumin Level 3.4 g/dL (3.5-5.2); Alkaline Phosphatase 61 U/L (35-105); Anion Gap 15.6 (5-19); Aspartate Amino Transferase 18 U/L (0-32); Blood Urea Nitrogen 34 mg/dL (8-23); Calcium 9.2 mg/dL (8.5-10.5); Carbon Dioxide 19 mmol/L (22-29); Chloride 107 mmol/L (98-107); Creatinine Clr Calc Pharmacy 10.9882; Globulin 3.0 g/dL (1.3-4.6); Glucose 109 mg/dL (65-115); Osmolality Calculated 292 mOsm/kg (285-295); Potassium 4.6 mmol/L (3.5-5.1); Sodium 137 mmol/L (136-145); Total Protein 6.4 g/dL (6.6-8.7)
[2024-12-01] MEDS: hyDRALAzine 20 mg/mL INJ 1 mL 10 MG IVP (20:19)
[2024-12-01 20:25] VITALS: BP 207/101; PULSE 72; RESP 16; O2SAT 91
[2024-12-01 21:00] VITALS: PULSE 75; RESP 18; O2SAT 93
[2024-12-01 21:00] LABS: Glucose Urine UA Negative (Normal); Nitrate Urine Negative (Negative); Specific Gravity, Urine 1.014 (1.005-1.030)
[2024-12-01 21:16] LABS: Add Urine Microscopic? YES; UA Slide Review UA Slide Review Perf
== END 2024-12-01 21:54 | disposition home or self-care (01) ==
PROVIDERS: Student in an Organized Health Care Education/Training Program; Emergency Provider Emergency Medicine; PCP Family Medicine
DX: N18.9 Chronic kidney disease, unspecified (principal); Z79.82 Long term (current) use of aspirin; Z72.0 Tobacco use; Z86.73 Personal history of transient ischemic attack (TIA), and cerebral infarction without residual deficits; I10 Essential (primary) hypertension
CPT/HCPCS: 36415; 71045; 80053; 81001; 85025; 96374; 99284; J0360; J7030